=== PATIENT | female | born 1950 | race Caucasian/White ===

== ENCOUNTER 2021-03-14 09:41 | Emergency (ER) | payer OTHER, BC ==
[2021-03-14] MEDS ORDERED: FLUORESCEIN SODIUM 1 MG/WRAP ONE (10:54)
[2021-03-14] MEDS ORDERED: TETRACAINE HCL 0.5% 4ML OPTH ONE (10:54)
--- NOTE | 2021-03-14 10:54 | ER ---
Nurse's Notes [facility] Name: Angelique Ayala Age: 71 yrs Sex: Female : 1950 Arrival Date: 03/14/2021 Time: 09:44 Bed Treatment Private MD: Diagnosis: Injury of conjunctiva and corneal abrasion without foreign body, right eye Presentation: 03/14 10:08 Chief complaint: Patient states: R eye redness swelling, irritation since yesterday ll1 afternoon. Possible FB. Coronavirus screen: Vaccine status: Patient reports receiving the 2nd dose of the covid vaccine. Client denies travel out of the [place] in the last 14 days. At this time, the client does not indicate any symptoms associated with coronavirus-19. Ebola Screen: Patient denies travel to an Ebola-affected area in the 21 days before illness onset. Initial Sepsis Screen: Does the patient meet any 2 criteria? No. Patient's initial sepsis screen is negative. Does the patient have a suspected source of infection? Yes: Other: eye. Risk Assessment: Do you want to hurt yourself or someone else? Patient reports no desire to harm self or others. Onset of symptoms was March 13, 2021. 10:08 Method Of Arrival: Ambulatory ll1 10:08 Acuity: CHAZ 4 ll1 Historical: - Allergies: 10:10 Versed; ll1 10:10 Naproxen; ll1 - PMHx: 10:10 Hypertensive disorder; Diabetes mellitus; GERD; ll1 - Immunization history:: Client reports receiving the 2nd dose of the Covid vaccine, Flu vaccine is up to date. - Social history:: Smoking status: Patient denies any tobacco usage or history of. Screenin:22 Abuse screen: Denies threats or abuse. Denies injuries from another. Nutritional ss screening: No deficits noted. Tuberculosis screening: Never had TB. Fall Risk None identified. Assessment: 10:40 General: Appears in no apparent distress. comfortable, Behavior is calm, cooperative. vg1 Pain: Complains of pain in right eye Pain at worst was 8 out of 10 on a pain scale. Pain began 1 day ago. Neuro: Level of Consciousness is awake, alert, obeys commands, Oriented to person, place, time, situation. Cardiovascular: Patient's skin is warm and dry. Respiratory: Airway is patent Respiratory effort is even, unlabored. GI: No signs and/or symptoms were reported involving the gastrointestinal system. : No signs and/or symptoms were reported regarding the genitourinary system. EENT: Eyes are tearing on outer aspect of conjuctiva of right eye, iris of right eye and inner aspect of conjuctiva of right eye. Derm: Skin is intact, is healthy with good turgor. Musculoskeletal: Circulation, motion, and sensation intact. 12:22 Reassessment: Patient appears in no apparent distress at this time. Patient and/or ss family updated on plan of care and expected duration. Pain level reassessed. Patient is alert, oriented x 3, equal unlabored respirations, skin warm/dry/pink. Vital Signs: 10:08 BP 168 / 89; Pulse 72; Resp 18; Temp 98.1; Pulse Ox 97% ; Weight 68.04 kg; Height 5 ft. ll1 4 in. (162.56 cm); Pain 8/10; 10:08 Body Mass Index 25.75 (68.04 kg, 162.56 cm) ll1 ED Course: 09:44 Patient arrived in ED. ds1 10:08 Arm band placed on. ll1 10:10 Triage completed. ll1 10:19 Jerica Flood FNP-C is [facility]. kb 10:20 Yousuf Jansen MD is Attending Physician. kb 10:40 Mary Jameson, PAVITHRA is Primary Nurse. vg1 12:22 Patient has correct armband on for positive identification. Bed in low position. Call light in reach. 12:22 Assist provider with eye exam of right eye. using fluorescein stain, Performed by Yousuf Jansen MD Patient tolerated well. Patient did not have IV access during this emergency room visit. Administered Medications: 11:45 Drug: Tetracaine Drops 0.5 % 1 drops Route: Ophthalmic; Site: right eye; Outcome: 10:53 Discharge ordered by . kb 12:22 Discharged to home ambulatory. ss 12:22 Condition: good 12:22 Discharge instructions given to patient, Instructed on discharge instructions, follow up and referral plans. Demonstrated understanding of instructions, follow-up care, Prescriptions given X 1. 12:23 Patient left the ED. Signatures: Jerica Flood FNP-C FNP-Ckb Sanford, Demi ds1 Page Garcia RN RN Mary Meza RN RN vg1 Randall Boyce, RN RN ll1
--- NOTE | 2021-03-14 10:54 | EDPHYS ---
Physician Documentation [facility] Name: Angelique Ayala Age: 71 yrs Sex: Female : 1950 Arrival Date: 03/14/2021 Time: 09:44 Bed Treatment Private MD: ED Physician Yousuf Jansen HPI: 03/14 11:18 This 71 yrs old Female presents to ER via Ambulatory with complaints of kb Foreign Body In Eye. 11:18 The patient is experiencing foreign body sensation, The patient sustained None. to the kb right eye, caused by debris. Onset: The symptoms/episode began/occurred yesterday. Duration: the symptoms are continuous. Aggravated by nothing. Alleviated by nothing. Associated signs and symptoms: Pertinent positives: None. Patient does not utilize any form of vision correction. Severity of symptoms: At their worst the symptoms were moderate in the emergency department the symptoms are unchanged. The patient has not experienced similar symptoms in the past. The patient has not recently seen a physician. Pt reports she was looking up at a bird yesterday evening and it dropped something into right eye. Historical: - Allergies: 10:10 Versed; ll1 10:10 Naproxen; ll1 - PMHx: 10:10 Hypertensive disorder; Diabetes mellitus; GERD; ll1 - Immunization history:: Client reports receiving the 2nd dose of the Covid vaccine, Flu vaccine is up to date. - Social history:: Smoking status: Patient denies any tobacco usage or history of. ROS: 11:16 Constitutional: Negative for fever, chills, and weight loss. kb 11:16 Eyes: Positive for foreign body sensation, pain, redness. 11:16 All other systems are negative. Exam: 11:16 Constitutional: This is a well developed, well nourished patient who is awake, alert, kb and in no acute distress. Head/Face: Normocephalic, atraumatic. ENT: Moist Mucous membranes Respiratory: Respirations even and unlabored. No increased work of breathing, no retractions or nasal flaring. Skin: Warm, dry with normal turgor. Normal color. MS/ Extremity: Pulses equal, no cyanosis. Neurovascular intact. Full, normal range of motion. Neuro: Awake and alert, GCS 15, oriented to person, place, time, and situation. Moves all extremities. Normal gait. Psych: Awake, alert, with orientation to person, place and time. Behavior, mood, and affect are within normal limits. 11:16 Eyes: Periorbital structures: appear normal, Pupils: equal, round, and reactive to light and accomodation, Extraocular movements: intact throughout, Conjunctiva: Corneas: abrasion, that is small, on the right, at 9 o'clock, foreign body, is not appreciated, a fluorescein strip employed to appreciate the findings. Vital Signs: 10:08 BP 168 / 89; Pulse 72; Resp 18; Temp 98.1; Pulse Ox 97% ; Weight 68.04 kg; Height 5 ft. ll1 4 in. (162.56 cm); Pain 8/10; 10:08 Body Mass Index 25.75 (68.04 kg, 162.56 cm) ll1 MDM: 10:25 Patient medically screened. kb 11:18 Data reviewed: vital signs, nurses notes. Data interpreted: Pulse oximetry: on room air kb is 97 %. Interpretation: normal. Counseling: I had a detailed discussion with the patient and/or guardian regarding: the historical points, exam findings, and any diagnostic results supporting the discharge/admit diagnosis, the need for outpatient follow up, an opthalmologist, to return to the emergency department if symptoms worsen or persist or if there are any questions or concerns that arise at home. 03/14 10:20 Order name: Eye Tray; Complete Time: 10:29 kb 03/14 10:20 Order name: Fluoresene Opth strip; Complete Time: 10:29 kb 03/14 10:20 Order name: Visual Acuity; Complete Time: 12:22 kb Administered Medications: 11:45 Drug: Tetracaine Drops 0.5 % 1 drops Route: Ophthalmic; Site: right eye; Disposition: 15:13 Co-signature as Attending Physician, Yousuf Jansen MD I agree with the assessment and lavonne plan of care. Disposition Summary: 03/14/21 10:53 Discharge Ordered Location: Home Condition: Stable kb Diagnosis - Injury of conjunctiva and corneal abrasion without foreign body, right eye kb Followup: kb - With: Emergency Department - When: As needed - Reason: Worsening of condition Followup: kb - With: Private Physician - When: 2 - 3 days - Reason: Recheck today's complaints, Continuance of care, Re-evaluation by your physician Discharge Instructions: - Discharge Summary Sheet kb - Corneal Abrasion, [id number] kb Forms: - Medication Reconciliation Form kb - Thank You Letter kb - Antibiotic Education kb - Prescription Opioid Use kb Prescriptions: - Erythromycin 5 mg/gram (0.5 %) Ophthalmic Ointment - apply 1 ribbon by OPHTHALMIC route every 8 hours for 7 days; 1 tube; Refills: kb 0, Product Selection Permitted Signatures: Jerica Flood, HANNA[employer] OPERATOR-Yousuf Mae MD MD cha Smirch, Shelby, RN RN ss Randall Boyce RN RN ll1
[2021-03-14 12:32] VITALS: BP 168/89; TEMP 98.1; O2SAT 97
== END 2021-03-14 12:23 | disposition home or self-care (01) ==
LOC: ER 09:41
DX: S05.01XA Injury of conjunctiva and corneal abrasion without foreign body, right eye, initial encounter (principal); I10 Essential (primary) hypertension; Z88.6 Allergy status to analgesic agent; Z88.8 Allergy status to other drugs, medicaments and biological substances
CPT/HCPCS: 99283

== ENCOUNTER 2021-06-18 18:58 | Inpatient (IN) | payer OTHER, BC ==
[2021-06-18] MEDS ORDERED: FENTANYL CITR 100 MCG/2 ML ONE ×2 (19:29→21:32)
[2021-06-18 20:05] LABS: Absolute Lymphocytes (CBC) 0.9 K/uL (0.7-4.9); Basophils % 0.2 % (0-1.3); Lymphocytes % 13.5 % (15.3-44.8); MPV 9.6 fL (7.6-11.3)
[2021-06-18 20:08] LABS: Protime INR 0.91
--- NOTE | 2021-06-18 20:22 | RAD REPORT ---
EXAM DESCRIPTION: RAD - Hip Left 2 View - 06/18/2021 8:10 pm CLINICAL HISTORY: PAIN COMPARISON: No comparisons FINDINGS: Left intertrochanteric hip fracture which is only mildly displaced. No dislocation. IMPRESSION: Left intertrochanteric hip fracture.
--- NOTE | 2021-06-18 20:22 | RAD REPORT ---
EXAM DESCRIPTION: RAD - Pelvis - 06/18/2021 8:10 pm CLINICAL HISTORY: fall COMPARISON: Hip Left 2 View dated 06/18/2021; Chest Single View dated 06/18/2021 FINDINGS: Left intertrochanteric hip fracture. No pelvic fracture seen. Mild bilateral acetabular de generative changes. IMPRESSION: Left intertrochanteric hip fracture. No dislocation or pelvic fracture identified.
[2021-06-18 20:24] LABS: ALT/SGPT 25 U/L (12-78); AST/SGOT 25 U/L (15-37); Albumin 3.4 g/dL (3.4-5.0); Alkaline Phosphatase 98 U/L (45-117); BUN Blood Urea Nitrogen 9 mg/dL (7-18); Bicarbonate 26 mmol/L (21-32); Bilirubin Direct 0.1 mg/dL (0-0.2); Bilirubin Total 0.2 mg/dL (0.2-1.0); Glucose Level 130 mg/dL (74-106); Magnesium 1.6 mg/dL (1.8-2.4); NT PRO-BNP 214 pg/mL (<125); Potassium 4.1 mmol/L (3.5-5.1); Protein, Total 6.7 g/dL (6.4-8.2); Sodium Level 140 mmol/L (136-145); Troponin (Emerg Dept Use Only) < 0.02 ng/mL (0.0-0.045)
--- NOTE | 2021-06-18 20:24 | RAD REPORT ---
EXAM DESCRIPTION: RAD - Chest Single View - 06/18/2021 8:10 pm CLINICAL HISTORY: fall COMPARISON: Chest Pa And Lat (2 Views) dated 11/13/2019; Chest Pa And Lat (2 Views) dated 06/10/2019; C hest Pa And Lat (2 Views) dated 03/16/2017; CHEST PA AND LAT 2 VIEW dated 11/12/2012 FINDINGS: Lines: None. Lungs: Increased interstitial prominence. No consolidation. Pleural: No significant pleural effusions or pneumothorax. Cardiac: Cardiomegaly. Bones: No acute fractures. Other: Hiatal hernia. IMPRESSION: Increased prominence of the pulmonary interstitium which may reflect vascular congestion . No daniel pulmonary edema. No consolidative airspace disease.
--- NOTE | 2021-06-18 20:30 | ER ---
Nurse's Notes [facility] Name: Angelique Ayala Age: 71 yrs Sex: Female : 1950 Arrival Date: 06/18/2021 Time: 19:21 Bed 16 Private MD: Diagnosis: Nondisplaced intertrochanteric fracture of left femur, initial encounter for closed fracture;Fall on same level from slipping, tripping and stumbling without subsequent striking against object Presentation: 06/18 07:30 Chief complaint: Patient states: pt states she was standing on 1 leg to sit on couch w mr2 1 leg under her when she lost her balance and fell over onto her L hip. denies loc denies hitting head denies blood thinners external rotation of left foot no active hemorrhage. Care prior to arrival: Medication(s) given: 50 mcg fentanyl. Mechanism of Injury: Fall from standing position. Trauma event details: Injury occurred in the [facility], Injury occurred: at home. Injury occurred: June 18, 2021 Injury occurred at: 18:00. 07:30 Acuity: CHAZ 2 mr2 07:30 Method Of Arrival: EMS: [facility] mr2 20:24 Coronavirus screen: Vaccine status: Patient reports receiving the 2nd dose of the covid mr2 vaccine. Ebola Screen: No symptoms or risks identified at this time. Initial Sepsis Screen: Does the patient meet any 2 criteria? No. Patient's initial sepsis screen is negative. Does the patient have a suspected source of infection? No. Patient's initial sepsis screen is negative. Risk Assessment: Do you want to hurt yourself or someone else? Patient reports no desire to harm self or others. Onset of symptoms was June 18, 2021 at 18:00. Triage Assessment: 20:00 General: Appears in no apparent distress. uncomfortable, Behavior is calm, cooperative. sv1 Pain: Complains of pain in left hip. Trauma Activation: Physician: ED Physician; Name: mamadou; Notified At: ; Arrived At: Physician: General Surgeon; Name: ; Notified At: ; Arrived At: Physician: Radiology; Name: ; Notified At: ; Arrived At: Physician: Respiratory; Name: ; Notified At: ; Arrived At: Physician: Lab; Name: ; Notified At: ; Arrived At: Historical: - Allergies: 20:24 Naproxen; mr2 20:24 Versed; mr2 - PMHx: 20:24 diabetes mellitus; GERD; Hypertensive disorder; mr2 - Immunization history: Last tetanus immunization: < 10 years ago. - Social history:: Smoking status: Patient denies any tobacco usage or history of. Screenin:30 Abuse screen: Denies threats or abuse. Denies injuries from another. Tuberculosis mr2 screening: No symptoms or risk factors identified. 20:25 Nutritional screening: No deficits noted. Fall Risk Fall in past 12 months (25 points). mr2 IV access (20 points). Gait- Mental Status-. Primary Survey: 07:30 NO uncontrolled hemorrhage observed. A: Airway: patent. Breathing/Chest: Respiratory mr2 pattern: regular. Circulation: Cardiac rhythm: sinus rhythm Pulses: palpable right radial artery, right dorsalis pedis artery, left radial artery and left dorsalis pedis artery. Skin color: pink, Skin temperature: warm. Disability Alert. Exposure/Environment: All clothing and personal items were removed. Forensic evidence collection is not deemed to be indicated at this time. Items placed in patient belonging bag. There is no evidence of uncontrolled external bleeding. 20:23 Reassessment Airway Airway Patent Oxygen Breathing/Chest Circulation Heart rhythm Sinus mr2 rhythm Temperature Warm Disability Alert. Secondary Survey: 19:45 HEENT: No deficits noted. Gastrointestinal: No deficits noted. : No deficits noted. mr2 Musculoskeletal: L foot external rotation. Assessment: 07:30 General: Appears uncomfortable, Behavior is calm, cooperative. Pain: Complains of pain mr2 in left hip Pain does not radiate. Pain currently is 8 out of 10 on a pain scale. Vital Signs: 19:30 BP 106 / 64; Pulse 80; Resp 16; Temp 98.4; Pulse Ox 98% on R/A; Weight 63.5 kg; Height mr2 5 ft. 2 in. (157.48 cm); Pain 8/10; 23:31 BP 115 / 70; Pulse 78; Resp 16; Temp 98.3; Pulse Ox 97% on R/A; mr2 06/19 01:10 BP 120 / 75; Pulse 75; Resp 17; Temp 98.3; Pulse Ox 97% on R/A; mr2 06/18 19:30 Body Mass Index 25.61 (63.50 kg, 157.48 cm) mr2 Patrick Coma Score: 06/18 19:30 Eye Response: spontaneous(4). Verbal Response: oriented(5). Motor Response: obeys mr2 commands(6). Total: 15. Trauma Score (Adult): 19:30 Eye Response: spontaneous(1); Verbal Response: oriented(1); Motor Response: obeys mr2 commands(2); Systolic BP: > 89 mm Hg(4); Respiratory Rate: 10 to 29 per min(4); Power Score: 15; Trauma Score: 12 ED Course: 19:21 Patient arrived in ED. ja2 19:22 Yousuf Louie PA is PHCP. cp 19:22 Yousuf Jansen MD is Attending Physician. cp 19:30 Patient maintains SpO2 saturation greater than 95% on room air. mr2 19:30 Thermoregulation: warm blanket given to patient. mr2 19:30 Patient has correct armband on for positive identification. Side rails up X2. Adult w/ mr2 patient. 19:51 Initial lab(s) drawn, by ne, sent to lab. Inserted saline lock: 22 gauge in left lt3 antecubital area, using aseptic technique. 19:53 Anmol Gardiner, RN is Primary Nurse. mr2 20:10 XRAY Pelvis In Process Unspecified. EDMS 20:10 XRAY Hip LEFT 2 view In Process Unspecified. EDMS 20:10 XRAY Chest (1 view) In Process Unspecified. EDMS 20:17 Triage completed. mr2 20:22 No provider procedures requiring assistance completed. mr2 20:26 EKG done, by ED staff, reviewed by Yousuf PERKINS. lt3 20:28 Manolo Miller MD is Hospitalizing Provider. 06/19 01:51 Patient admitted, IV remains in place. mr2 01:52 Patient notified of wait time. mr2 Administered Medications: 06/18 19:30 CANCELLED (Physician Discretion): fentaNYL (PF) 25 mcg IVP once; RASS on ADMIN: cp Combtv4, Very Agttd3, Agttd2, Rstlss1, AlertClm0, Drwsy-1, Lt Sdtn-2, Mod Sdtn-3, Dp Sdtn-4, UnArsble-5 19:59 Drug: fentaNYL (PF) 25 mcg Route: IVP; Site: left antecubital; mr2 20:26 Drug: NS 0.9% 500 ml Route: IV; Rate: bolus; Site: left antecubital; mr2 20:33 Drug: Magnesium Sulfate 1 grams Route: IVPB; Infused Over: 1 hrs; Site: left mr2 antecubital; 21:15 Drug: fentaNYL (PF) 25 mcg Route: IVP; Site: left antecubital; mr2 06/19 01:15 Drug: fentaNYL (PF) 25 mcg Route: IVP; Site: left antecubital; mr2 Intake: 01:52 PO: 200ml; IV: 500ml; Total: 700ml. mr2 Output: 01:52 Urine: 200ml; Total: 200ml. mr2 Outcome: 06/18 20:29 Decision to Hospitalize by Provider. blanca 06/19 01:51 Admitted to Med/surg mr2 Condition: stable Instructed on the need for admit. 01:52 Patient's length of stay was not longer than 2 hours. mr2 03:05 Patient left the ED. sv1 Signatures: Dispatcher [employer] EDMS Yousuf Louie PA PA cp Alexander, Jessica ja2 Reynard, Mike, RN RN mr2 Mckenna Cooley 3 Angel Yates RN RN sv1
--- NOTE | 2021-06-18 20:30 | EDPHYS ---
Physician Documentation [facility] Name: Angelique Ayala Age: 71 yrs Sex: Female : 1950 Arrival Date: 06/18/2021 Time: 19:21 Bed 16 Private MD: ED Physician Yousuf Jansen HPI: 06/18 19:40 This 71 yrs old Female presents to ER via Unassigned with complaints of Fall Injury. cp 19:40 Details of fall: The patient fell from an upright position, while walking. Onset: The cp symptoms/episode began/occurred just prior to arrival. Associated injuries: The patient sustained left hip, painful injury. Historical: - Allergies: 20:24 Naproxen; mr2 20:24 Versed; mr2 - PMHx: 20:24 diabetes mellitus; GERD; Hypertensive disorder; mr2 - Immunization history: Last tetanus immunization: < 10 years ago. - Social history:: Smoking status: Patient denies any tobacco usage or history of. ROS: 19:42 Constitutional: Negative for body aches, chills, fever, poor PO intake. cp 19:42 Cardiovascular: Negative for chest pain, edema, palpitations. 19:42 Respiratory: Negative for cough, shortness of breath, wheezing. 19:42 MS/extremity: Positive for injury or acute deformity, pain, paresthesias, of the left hip. 19:42 All other systems are negative. cp Exam: 19:45 Constitutional: The patient appears in no acute distress, alert, awake, cp non-diaphoretic, non-toxic, well developed, well nourished, uncomfortable. 19:45 Head/Face: Normocephalic, atraumatic. cp 19:45 Eyes: Periorbital structures: appear normal, Conjunctiva: normal, no exudate, no cp injection, Sclera: no appreciated abnormality, Lids and lashes: appear normal, bilaterally. 19:45 ENT: External ear(s): are unremarkable, Nose: is normal, Mouth: Lips: moist, Oral cp mucosa: moist, Posterior pharynx: Airway: no evidence of obstruction, patent. 19:45 Neck: ROM/movement: is normal, is supple, without pain, no range of motions limitations. 19:45 Chest/axilla: Inspection: normal, Palpation: is normal, no crepitus, no tenderness. 19:45 Cardiovascular: Rate: normal, Rhythm: regular, Edema: is not appreciated, JVD: is not appreciated. 19:45 Respiratory: the patient does not display signs of respiratory distress, Respirations: normal, no use of accessory muscles, no retractions, labored breathing, is not present, Breath sounds: are clear throughout, no decreased breath sounds, no stridor, no wheezing. 19:45 Abdomen/GI: Inspection: abdomen appears normal, Bowel sounds: active, all quadrants, Palpation: abdomen is soft and non-tender, in all quadrants. 19:45 Back: pain, is absent, vertebral tenderness, is not appreciated. 19:45 Musculoskeletal/extremity: Extremities: grossly normal except: noted in the left hip: pain, tenderness, ROM: limited passive range of motion due to pain, in the left hip, Pulses: noted to be 2+ in the left dorsalis pedis artery, Perfusion: the extremity is normally perfused throughout, the left hip Severe pain noted. 19:45 Skin: cellulitis, is not appreciated, no rash present. 19:45 Neuro: Orientation: to person, place \T\ time. Mentation: is normal, Motor: moves all fours, strength is normal, Sensation: is normal. 20:25 ECG was reviewed by the Attending Physician. cp Vital Signs: 19:30 BP 106 / 64; Pulse 80; Resp 16; Temp 98.4; Pulse Ox 98% on R/A; Weight 63.5 kg; Height mr2 5 ft. 2 in. (157.48 cm); Pain 8/10; 23:31 BP 115 / 70; Pulse 78; Resp 16; Temp 98.3; Pulse Ox 97% on R/A; mr2 06/19 01:10 BP 120 / 75; Pulse 75; Resp 17; Temp 98.3; Pulse Ox 97% on R/A; mr2 06/18 19:30 Body Mass Index 25.61 (63.50 kg, 157.48 cm) mr2 [place] Coma Score: 06/18 19:30 Eye Response: spontaneous(4). Verbal Response: oriented(5). Motor Response: obeys mr2 commands(6). Total: 15. Trauma Score (Adult): 19:30 Eye Response: spontaneous(1); Verbal Response: oriented(1); Motor Response: obeys mr2 commands(2); Systolic BP: > 89 mm Hg(4); Respiratory Rate: 10 to 29 per min(4); Patrick Score: 15; Trauma Score: 12 MDM: 19:25 Patient medically screened. [place] 20:00 Differential diagnosis: closed head injury, contusion, fracture, multiple trauma. 20:26 Physician consultation: Angel David MD was called at 20:25, was contacted at 20:25, regarding consult, patient's condition, and will see patient in inpatient room, tomorrow, would like admission per Dr. Manolo Miller MD. 20:30 Data reviewed: vital signs, nurses notes, lab test result(s), EKG, radiologic studies, cp plain films. 20:30 Test interpretation: by ED physician or midlevel provider: ECG, plain radiologic cp studies. 20:46 Physician consultation: Manolo Miller MD was contacted at 20:46, regarding patient's cp condition, and will see patient in inpatient room, tomorrow. 06/18 19:30 Order name: Basic Metabolic Panel 06/18 19:30 Order name: CBC with Diff; Complete Time: 20:25 06/18 20:25 Interpretation: Normal except: NISH% 76.2; LYM% 13.5. 06/18 19:30 Order name: LFT's; Complete Time: 20:25 06/18 19:30 Order name: Magnesium; Complete Time: 20:25 06/18 20:26 Interpretation: Abnormal: MG 1.6. 06/18 19:30 Order name: NT PRO-BNP; Complete Time: 20:25 06/18 19:30 Order name: PT-INR; Complete Time: 20:25 06/18 19:30 Order name: Troponin (emerg Dept Use Only); Complete Time: 20:25 06/18 19:30 Order name: Ptt, Activated; Complete Time: 20:25 06/18 19:30 Order name: Basic Metabolic Panel; Complete Time: 20:25 [facility] 06/18 20:33 Order name: Urine Microscopic Only 06/18 20:33 Order name: Urine Microscopic Only [facility] 06/18 20:58 Order name: Basic Metabolic Panel [facility] 06/18 20:58 Order name: Basic Metabolic Panel [facility] 06/18 19:26 Order name: XRAY Pelvis; Complete Time: 20:25 06/18 20:26 Interpretation: Report reviewed. 06/18 19:26 Order name: XRAY Hip LEFT 2 view; Complete Time: 20:23 06/18 19:26 Order name: IV; Complete Time: 19:52 06/18 19:26 Order name: XRAY Chest (1 view); Complete Time: 20:25 06/18 19:30 Order name: EKG; Complete Time: 19:31 06/18 20:58 Order name: CONS Physician Consult [facility] 06/18 23:29 Order name: SARS-COV-2 RT PCR; Complete Time: 01:01 [facility] 06/19 00:05 Order name: NPO [facility] 06/19 00:05 Order name: CBC with Automated Diff [facility] 06/19 02:39 Order name: Glucose, Ancillary Testing [facility] 06/18 19:30 Order name: Cardiac monitoring; Complete Time: 20:27 06/18 19:30 Order name: EKG - Nurse/Tech; Complete Time: 20:27 06/18 19:30 Order name: Labs collected and sent; Complete Time: 20:02 06/18 19:30 Order name: O2 Per Protocol 06/18 19:30 Order name: O2 Sat Monitoring; Complete Time: 20:27 06/18 20:33 Order name: [place] 06/18 20:33 Order name: Urine Dipstick-Ancillary (obtain specimen) cp EC:25 Rate is 77 beats/min. Rhythm is regular. PA interval is normal. QRS interval is normal. cp QT interval is normal. Interpreted by me. Reviewed by me. Administered Medications: 19:30 CANCELLED (Physician Discretion): fentaNYL (PF) 25 mcg IVP once; RASS on ADMIN: cp Combtv4, Very Agttd3, Agttd2, Rstlss1, AlertClm0, Drwsy-1, Lt Sdtn-2, Mod Sdtn-3, Dp Sdtn-4, UnArsble-5 19:59 Drug: fentaNYL (PF) 25 mcg Route: IVP; Site: left antecubital; mr2 20:26 Drug: NS 0.9% 500 ml Route: IV; Rate: bolus; Site: left antecubital; mr2 20:33 Drug: Magnesium Sulfate 1 grams Route: IVPB; Infused Over: 1 hrs; Site: left mr2 antecubital; 21:15 Drug: fentaNYL (PF) 25 mcg Route: IVP; Site: left antecubital; mr2 06/19 01:15 Drug: fentaNYL (PF) 25 mcg Route: IVP; Site: left antecubital; mr2 Disposition: 06/18 21:00 Chart complete. cp Disposition Summary: 06/18/21 20:29 Hospitalization Ordered Hospitalization Status: Inpatient Admission cp Provider: Manolo Miller cp Location: Telemetry/MedSurg (Inpatient) cp Condition: Stable cp Problem: new cp Symptoms: have improved cp Bed/Room Type: Standard cp Room Assignment: 209(06/19/21 01:09) cg Diagnosis - Nondisplaced intertrochanteric fracture of left femur, initial encounter for closed cp fracture - Fall on same level from slipping, tripping and stumbling without subsequent cp striking against object Forms: - Medication Reconciliation Form cp - SBAR form cp Addendum: 06/20/2021 11:13 Co-signature as Attending Physician, Yousuf Jansen MD I agree with the assessment and c wright plan of care. Signatures: Dispatcher [employer] MEGAVA Yousuf Jansen MD MD cha Attema, Lee, CHIEF CONTROLLER TOWER-C CHIEF CONTROLLER TOWER-Cla1 Yousuf Louie PA PA cp Rebecca Jameson RN RN cg Anmol Gardiner RN RN mr2 Corrections: (The following items were deleted from the chart) 06/18 19:30 19:26 fentaNYL (PF) 25 mcg IVP once; RASS on ADMIN: Combtv4, Very Agttd3, Agttd2, cp Rstlss1, AlertClm0, Drwsy-1, Lt Sdtn-2, Mod Sdtn-3, Dp Sdtn-4, UnArsble-5 ordered. cp 20:25 20:25 Normal except. cp cp 23:29 22:58 CORONAVIRUS+MR.LAB.BRZ ordered. [facility] 06/19 01:09 06/18 20:29 cp cg
[2021-06-18] MEDS ORDERED: GLUCAGON 1 MG/VIAL IM PRN (20:53)
[2021-06-18] MEDS ORDERED: ONDANSETRON 4 MG/2 ML VIAL IV PRN (20:53)
[2021-06-18] MEDS ORDERED: D50W 25 GM/50 ML SYRINGE IV PRN (20:53)
[2021-06-18] MEDS ORDERED: ACETAMINOPHEN 500 MG TAB PO PRN (20:53)
[2021-06-18] MEDS: INSULIN -REGULAR HUMAN 50 UNIT/0.5 ML ML SQ SCH (21:00)
[2021-06-18] MEDS ORDERED: NA CHLORIDE 0.9% 500 ML ONE (21:01)
[2021-06-19] MEDS ORDERED: FENTANYL CITR 100 MCG/2 ML ONE ×2 (01:20→14:01)
[2021-06-19 03:27] VITALS: BMI 25.6
[2021-06-19] MEDS: MORPHINE 2 MG/ML SYR IV PRN ×2 (03:59→09:30)
[2021-06-19 05:31] LABS: Absolute Lymphocytes (CBC) 0.4 K/uL (0.7-4.9); Basophils % 0.2 % (0-1.3); Hematocrit 36.2 % (36.0-45.0); Lymphocytes % 12.3 % (15.3-44.8); MPV 9.5 fL (7.6-11.3); RBC Red Blood Cell Count 4.11 M/uL (3.86-4.86)
[2021-06-19 05:52] LABS: BUN Blood Urea Nitrogen 13 mg/dL (7-18); Bicarbonate 29 mmol/L (21-32); Glucose Level 117 mg/dL (74-106); Potassium 4.3 mmol/L (3.5-5.1); Sodium Level 140 mmol/L (136-145)
--- NOTE | 2021-06-19 07:15 | CON ---
Date of Consultation: 06/19/2021 History Of Present Illness: I have seen this patient in the past; however, not for this problem. Sh alexa unfortunately injured her left lower extremity and she was seen and examined in the emergency depar tment and ruled out for other injuries with the exception of pain in the left hip and x-ray of the le ft hip reveals slightly nondisplaced two-part intertrochanteric fracture on the left. Physical Examination: She is in Zavala's traction, but all long bones and joints are palpated without pain or crepitation wit h the exception of her left hip. Laboratory Data: X-rays are reviewed, which revealed a slightly displaced two-part fracture of the i ntertrochanteric region. Assessment: This is a 71-year-old female now with a left intertrochanteric fracture. Plan: Plan is to move forward probably around noon with a closed reduction and intramedullary navarro fi xation. The risks, benefits, and alternatives of this have been discussed with her including methods and other information. She says she understands things as presented and wished to proceed. NORRIS Voice ID: [id number] Report ID: [id number]
[2021-06-19] MEDS: INSULIN -REGULAR HUMAN 50 UNIT/0.5 ML ML SQ SCH ×4 (07:30→21:43)
[2021-06-19] MEDS: D5 0.9 NS 1,000 ML IV SCH ×2 (08:45→21:50)
[2021-06-19] MEDS ORDERED: TRANEXAMIC ACID 1,000 MG in NA CHLORIDE 0.9% 50 ML IV ONE (11:00)
[2021-06-19] MEDS ORDERED: NA CHLORIDE 0.9% 1,000 ML ONE (11:31)
--- NOTE | 2021-06-19 12:21 | HP ---
Date of Admission: 06/19/2021 Chief Complaint: Hip pain. History Of Present Illness: This is a 71-year-old female patient who lives at home was trying to sit down in the chair with 1 leg folded and as she was doing it, she lost her balance and fell forward o n her left hip. She did not have any head injury. She was not able to get up and she managed to get to her phone and call her daughter, who arrived at her house and then subsequently called ambulance and the patient was brought into the emergency room. After she was evaluated, she was admitted to [facility] with left hip fracture. Dr. David from Orthopedic Surgery has evaluated her and he is planning to do surgery today at [facility]. The patient was kept n.p.o. after midnight for this surge ry. She denies any recent febrile episodes. No cough, cold, congestion, or fever. No abdominal juni n, nausea, or vomiting. No chest pain or shortness of breath. Allergies: TO MIDAZOLAM CAUSING BRADYCARDIA, NAPROXEN CAUSING HIVES, STATIN CAUSING MUSCLE WEAKNESS, AND ZETIA ALSO CAUSING MUSCLE WEAKNESS. Medications: Amlodipine 5 mg daily in the morning, duloxetine 60 mg p.o. daily, famotidine 40 mg p.o . daily at bedtime, gabapentin 300 mg 3 times a day, losartan 50 mg p.o. 2 times a day, metformin 100 0 mg p.o. 2 times a day with meal, omeprazole 40 mg p.o. daily 30 minutes before breakfast, oxybutyni n 10 mg p.o. daily, ropinirole 1 mg p.o. daily at bedtime, sertraline 100 mg p.o. daily at bedtime, a nd vitamin B12 500 mcg p.o. daily. Review of Systems: Musculoskeletal: Left hip pain. All other systems reviewed and negative. Past Medical History: Significant for peripheral neuropathy, type 2 diabetes mellitus, hypertension, mixed hyperlipidemia, gastroesophageal reflux disease, diverticulosis, depression, and osteopenia. Past Surgical History: Significant for tonsillectomy, cholecystectomy, hysterectomy, and surgery for right wrist fracture. Family History: Father , had diabetes and hypertension. Mother , had congestive heart failu re. Social History: Prior history of smoking, not at present time. Uses alcohol as a glass of wine dora Entrecard. Immunization History: The patient had her first dose of COVID-19 vaccine on October 14, 2020, second do se on November 11, 2020 and she reports that she had her booster dose of COVID-19 vaccine as well as flu [facility] for this year. Physical Examination: Vital Signs: Temperature 98, pulse 62, respiratory rate 16, blood pressure 112/52, and oxygen satura tion 94% on room air. Height 5 feet 2 inches, weight 140 pounds. General: Awake, alert, oriented, not in distress. HEENT: Head atraumatic, normocephalic. Conjunctivae nonerythematous. Sclerae white. Mouth, no thr ush or edema noted. Ears/Nose, no mass, lesion, discharge noted. Neck: Supple. No JVD, lymph nodes, bruit, thyromegaly noted. Lungs: Bilateral good equal air entry. Clear to auscultation. No rhonchi. No rales. Heart: Normal heart sounds, no murmur or gallop. Abdomen: Soft, bowel sounds normal. No guarding, rigidity, tenderness, mass, hepatosplenomegaly, dis tention, or bruit noted. Extremities: Left foot is externally rotated. Neurovascular status of both feet is normal. Skin: No rash, ulcer, cellulitis. Lymphatics: No lymph node enlargement in neck, supraclavicular, infraclavicular region. Neuro: No focal neurological deficit. Chest: Unremarkable. External Genitalia: Deferred. Rectal: Deferred. Laboratory Data: Yesterday; white count 7, hemoglobin 12.2, and platelets 200. Today; white count 3 .5, hemoglobin 11.8, and platelets 152. INR 0.9. Yesterday; sodium 140, potassium 4.1, chloride 102 , bicarb 26, BUN 9, creatinine 0.71, glucose 130, and magnesium 1.6. Liver function tests unremarkab le. Troponin less than 0.02. ProBNP 214. Today; sodium 140, potassium 4.3, chloride 105, bicarb 29 , BUN 13, creatinine 0.55, and glucose 117. COVID-19 test negative. Left hip x-ray shows left inter trochanteric hip fracture with mild displacement, no dislocation. Chest x-ray shows increased promin ence of pulmonary interstitial marking. Impression: 1.Left hip intertrochanteric fracture. 2.Acute blood loss anemia. 3.Thrombocytopenia. 4.Hypertension. 5.Mixed hyperlipidemia. 6.Type 2 diabetes mellitus. 7.Gastroesophageal reflux disease. 8.Diverticulosis. 9.Depression. 10.Osteopenia. Plan: Admit the patient to hospital for further evaluation and management of this problem. The nazanin ent is appropriate for inpatient and is expected to spend 2 midnights in hospital. We will go ahead and keep her n.p.o. IV fluid D5 normal saline at 75 cc was started. Continue pain medication per ord er. Her EKG has not shown any acute changes. The patient is at acceptable risk from planned surgery and details were discussed with orthopedic surgeon, Dr. David who is planning to do surgery toda y. After her surgery, appropriate DVT prophylaxis will be started. We will consult Physical Therapy , consult Rehab and home medications will be continued per order. Diabetes will be managed with slid ing scale insulin. We will monitor the patient's hemoglobin and platelet count. No need for any fur ther intervention at this point. Plan of treatment discussed with the patient and she was advised to move her feet as instructed while lying in the bed to reduce chances of any DVT. YOLANDA/MODL Voice ID: [id number]
[2021-06-19] MEDS ORDERED: CEFAZOLIN SODIUM 1 GM/VIAL ONE (12:22)
[2021-06-19] MEDS ORDERED: propofoL 200 MG/20 ML VIAL IV ONE (12:30)
[2021-06-19] MEDS ORDERED: LIDOCAINE 2% MPF 5 ML VIAL ONE (12:30)
[2021-06-19] MEDS ORDERED: Phenylephrine HCl 10 MG/ML 1 ML VIAL ONE (12:31)
[2021-06-19] MEDS ORDERED: GLYCOPYRROLATE 0.2 MG/ML SYR ONE (14:04)
[2021-06-19] MEDS ORDERED: dexAMETHasone 10 MG/ML VIAL ONE (14:08)
[2021-06-19] MEDS ORDERED: KETOROLAC 30 MG/ML INJ ONE (14:08)
[2021-06-19] MEDS ORDERED: ONDANSETRON 4 MG/2 ML VIAL ONE (14:08)
[2021-06-19] MEDS ORDERED: Ringers Lactate 1,000 ML IV ONE (14:23)
--- NOTE | 2021-06-19 14:31 | P.BOP ---
Preoperative diagnosis: left IT fracture Postoperative diagnosis: same Estimated blood loss: 100ccs Anesthesia: General Complications: None Transferred to: Recovery Room
--- NOTE | 2021-06-19 15:06 | OP ---
Date of Procedure: 06/19/2021 Surgeon: Angel David MD Preoperative Diagnosis: Left intertrochanteric femur fracture. Postoperative Diagnosis: Left intertrochanteric femur fracture. Procedure: Left intertrochanteric femur fracture closed reduction with intramedullary navarro fixation. Estimated Blood Loss: 100 cc. Complications: There were no complications. Specimens: No pathology specimens sent. Indications For Operation: Ms. Ayala is a 71-year-old female who unfortunately fell injuring her left lower extremity. She was seen and examined in the emergency department, ruled out for other injuries . However x-rays demonstrated a left intertrochanteric fracture. Risks, benefits, and alternatives of different methods of treating this have been discussed with and at that time we planned for closed reduction intramedullary nailing. She states she understands things as presented and wishes to proc eed. Description Of Procedure: The patient was taken to the operating room and placed in supine position. General anesthesia was obtained by staff. Following this, she was then appropriately placed on the fracture table. The hip was then placed in a good position of reduction and hip was then prepped an d draped in the usual sterile fashion for the procedure. The greater trochanter was marked out. A v ertical incision made directly over the greater trochanter, taken down carefully through skin. Metic ulous hemostasis being maintained. This was followed through to the fascia. A finger was placed thr ough the fascia and the tip of the greater trochanter was palpated. A starting point was made just a t the more medial aspect of the greater trochanter. It was taken down carefully using the awl. This was followed by placement of the guide navarro, which was placed without difficulty. After this, hand r eamer was then used to ream down to the lesser trochanter, ensuring that the reduction was maintained . The navarro was then placed to appropriate depth. She is a quite small lady, so decision was made to go center center with the screw which was placed without difficulty. After this, there was some cons ideration about the use of antirotation pin. However, she is very small, so the decision was made to lock the screw proximally using the locking mechanism. This was followed by placement of a distal i nterlocking screw. After this, the wounds were irrigated. The fascia was closed using heavy Vicryl sutures, followed by closure of skin using 2-0 Vicryl followed by priyanka. The patient was then plac ed in Aquacel dressing, awakened, and taken to recovery room in good condition. There were no compli cations. SE/MODL Voice ID: [id number] Report ID: [id number]
--- NOTE | 2021-06-19 15:44 | RAD REPORT ---
EXAM DESCRIPTION: RAD - Hip In Or - 06/19/2021 3:34 pm FINDINGS: There were 9 portable C-arm views submitted from fluoroscopic assisted placement of fractu re fixation hardware. No suspicious or unexpected finding. Fluoro time was 0.8 minutes with cumulative dose of 8.21 mGy.
[2021-06-19] MEDS: METFORMIN HCL 500 MG TAB PO SCH (19:00)
[2021-06-19] MEDS: GABAPENTIN 300 MG CAP PO SCH (21:00)
[2021-06-19] MEDS: ROPINIROLE HCL 1 MG TAB PO SCH (21:00)
[2021-06-19] MEDS: LOSARTAN POTASSIUM 50 MG TABLET PO SCH (21:00)
[2021-06-19] MEDS: CEFAZOLIN/NS 1gm 1 GM/50 ML BAG IVPB SCH (21:43)
[2021-06-20] MEDS ORDERED: MAGNESIUM HYDROXIDE 8% 30 ML PO PRN (06:10)
[2021-06-20] MEDS: CEFAZOLIN/NS 1gm 1 GM/50 ML BAG IVPB SCH (06:24)
[2021-06-20] MEDS: MORPHINE 2 MG/ML SYR IV PRN ×3 (06:29→16:32)
[2021-06-20] MEDS: INSULIN -REGULAR HUMAN 50 UNIT/0.5 ML ML SQ SCH ×4 (07:30→21:00)
[2021-06-20 07:58] LABS: Hematocrit 31.6 % (36.0-45.0)
[2021-06-20] MEDS ORDERED: PNEUMOCOCCAL VACCINE 0.5 ML IMVAC ONE (08:00)
[2021-06-20] MEDS: ENOXAPARIN 40 MG/0.4 ML SQ SCH (08:14)
[2021-06-20] MEDS: METFORMIN HCL 500 MG TAB PO SCH ×2 (08:14→16:32)
[2021-06-20] MEDS: GABAPENTIN 300 MG CAP PO SCH ×2 (08:15→21:43)
[2021-06-20] MEDS: FAMOTIDINE 20 MG TAB PO SCH (08:15)
[2021-06-20] MEDS: LOSARTAN POTASSIUM 50 MG TABLET PO SCH ×2 (08:15→21:00)
[2021-06-20] MEDS: PANTOPRAZOLE 40MG TABLET PO SCH (08:16)
[2021-06-20] MEDS ORDERED: atenoloL 25 MG TAB PO SCH (09:00)
[2021-06-20] MEDS ORDERED: DOCUSATE NA/SENNA CONC 1 TAB PO SCH (21:00)
[2021-06-20] MEDS: ROPINIROLE HCL 1 MG TAB PO SCH (21:43)
--- NOTE | 2021-06-20 22:56 | PN ---
Date of Progress Note: 06/20/2021 Subjective: The patient was seen this morning for followup. No new complaints or problems reported by her. She was lying in bed, not in distress. Objective: Vital Signs: Reviewed. HEENT: Examination unremarkable. Lungs: Clear to auscultation. Heart: Sounds normal. Abdomen: Soft. Bowel sounds normal. No guarding, rigidity, tenderness, or distention. Extremities : No leg edema. Impression: 1.Left hip fracture. 2.Anemia due to acute blood loss. 3.Hypertension. 4.Type 2 diabetes mellitus. Plan: We will go ahead and continue current medication. Hemoglobin done this morning was 10.2, yest erday it was 11.8. Fingerstick blood sugar readings reviewed. We will continue current diabetes man agement. Continue current pain medication. DVT prophylaxis will be started using Lovenox per order, and I will see her tomorrow for followup. We will consult inpatient rehab along with physical thera py. YOLANDA/MODL Voice ID: [id number] Report ID: [id number]
[2021-06-21 04:48] VITALS: BP 127/59; TEMP 98.1
[2021-06-21] MEDS: MORPHINE 2 MG/ML SYR IV PRN (05:17)
[2021-06-21 05:56] LABS: Absolute Lymphocytes (CBC) 0.5 K/uL (0.7-4.9); Basophils % 0.2 % (0-1.3); Hematocrit 28.8 % (36.0-45.0); Lymphocytes % 9.3 % (15.3-44.8); MPV 9.5 fL (7.6-11.3); RBC Red Blood Cell Count 3.28 M/uL (3.86-4.86)
[2021-06-21 06:05] LABS: BUN Blood Urea Nitrogen 7 mg/dL (7-18); Bicarbonate 30 mmol/L (21-32); Glucose Level 125 mg/dL (74-106); Magnesium 1.7 mg/dL (1.8-2.4); Sodium Level 141 mmol/L (136-145)
[2021-06-21] MEDS: INSULIN -REGULAR HUMAN 50 UNIT/0.5 ML ML SQ SCH ×2 (07:30→11:30)
[2021-06-21] MEDS: ENOXAPARIN 40 MG/0.4 ML SQ SCH (08:06)
[2021-06-21] MEDS: PANTOPRAZOLE 40MG TABLET PO SCH (08:07)
[2021-06-21] MEDS: METFORMIN HCL 500 MG TAB PO SCH (08:07)
[2021-06-21] MEDS: LOSARTAN POTASSIUM 50 MG TABLET PO SCH (08:07)
[2021-06-21] MEDS: FAMOTIDINE 20 MG TAB PO SCH (08:08)
[2021-06-21] MEDS ORDERED: MAGNESIUM SULFATE 1 gm IVPB 1 GM/100 ML BAG IV ONE (09:00)
[2021-06-21] MEDS ORDERED: OXYBUTYNIN ER 5 MG TAB PO SCH (09:00)
[2021-06-21] MEDS ORDERED: DULOXETINE 30 MG CAP PO SCH (09:00)
[2021-06-21] MEDS ORDERED: ARIPiprazole 5 MG TAB PO SCH (09:00)
[2021-06-21] MEDS ORDERED: GABAPENTIN 300 MG CAP PO SCH (09:00)
[2021-06-21] MEDS ORDERED: SERTRALINE HCL 100 MG TAB PO SCH ×2 (09:00)
[2021-06-21] MEDS ORDERED: AMLODIPINE 5 MG TAB PO SCH (09:00)
[2021-06-21 09:51] VITALS: O2SAT 94
--- NOTE | 2021-06-21 13:39 | PN ---
Date of Progress Note: 06/21/2021 The patient is seen today. She was resting apparently comfortably in her bed. Her incisions and cee ssing are clean, dry, and intact with no sign of expanding hematoma or bleeding. Review of her hemog lobin shows 9.7. She says she has been up with Physical Therapy. At this point, I think the plan is sometime today to go upstairs to rehab. We would like for her to have continued touchdown weightbea ring as well as removal of the priyanka postop day 10 to 14, also continue anticoagulation for 3 weeks . She does not need any hip precautions. Change the dressing only as needed. It is very typical fo r us to see her back 2 weeks from time of surgery and also 6 weeks from time of surgery for x-rays to allow weightbearing at that time. This has been explained and all of her questions were otherwise a nswered. NORRIS Voice ID: [id number] Report ID: [id number]
--- NOTE | 2021-06-22 05:15 | DS ---
Date of Discharge: 06/21/2021 Disposition: Discharged to go to rehab floor. Physical Examination: HEENT: Unremarkable. Lungs: Clear to auscultation. Heart: Sounds normal. Abdomen: Soft. Bowel sounds normal. No guarding, rigidity, tenderness, or distention. Extremities: No leg edema. Hospital Course: This is a 71-year-old very pleasant female patient who was admitted to the hospital after she fell down at home and not able to get up. She was brought into the emergency room. Furth er evaluation revealed presence of left hip fracture. Dr. David from Orthopedic Surgery was cons ulted and the patient had surgery done day before yesterday. Postoperatively, she did very well. Jace liu has some mild acute blood loss anemia, but has not required any blood transfusion. She is particip ating well with physical therapy. Inpatient rehab was consulted and today patient was discharged to go to inpatient rehab in stable condition where I will continue to follow up with her. Final Diagnoses: 1.Left hip intertrochanteric fracture. 2.Acute blood loss anemia. 3.Thrombocytopenia. 4.Hypertension. 5.Mixed hyperlipidemia. 6.Type 2 diabetes mellitus. 7.Gastroesophageal reflux disease. 8.Diverticulosis. 9.Depression. 10.Osteopenia. Discharge Medications: See copy of transfer order for details. Laboratory Data: Upon admission, white count 7, hemoglobin 12.2, platelets 200. Today, white count 5.9, hemoglobin 9.7, platelets 122. Last chemistry: Today, sodium 141, potassium 4, chloride 105, b icarb 30, BUN 7, creatinine 0.45, glucose 125, magnesium 1.7. Upon admission, magnesium was 1.6. CO VID-19 test negative. YOLANDA/MODL Voice ID: [id number] Report ID: [id number]
== END 2021-06-21 14:45 | DRG 481 ==
LOC: ER 18:58 → ERHOLD 06-19 01:08 → 2ND 06-19 01:36
PROVIDERS: ADMIT Internal Medicine; ATTEND Internal Medicine
PROC: 0QS736Z Reposition Left Upper Femur with Intramedullary Internal Fixation Device, Percutaneous Approach (ICD-10-PCS; principal; 2021-06-19 12:00)
DX: S72.145A Nondisplaced intertrochanteric fracture of left femur, initial encounter for closed fracture (principal); D62 Acute posthemorrhagic anemia; K21.9 Gastro-esophageal reflux disease without esophagitis; E11.9 Type 2 diabetes mellitus without complications; F32.A Depression, unspecified; M85.80 Other specified disorders of bone density and structure, unspecified site; K57.90 Diverticulosis of intestine, part unspecified, without perforation or abscess without bleeding; D69.6 Thrombocytopenia, unspecified; E78.2 Mixed hyperlipidemia; I10 Essential (primary) hypertension; W01.0XXA Fall on same level from slipping, tripping and stumbling without subsequent striking against object, initial encounter; Z88.8 Allergy status to other drugs, medicaments and biological substances; Z79.84 Long term (current) use of oral hypoglycemic drugs; Z79.899 Other long term (current) drug therapy; Z90.49 Acquired absence of other specified parts of digestive tract; Z90.710 Acquired absence of both cervix and uterus; Z20.822 Contact with and (suspected) exposure to COVID-19
CPT/HCPCS: 36415; 71045; 72170; 73530; 80048; 80076; 82947; 83735; 83880; 84484; 85014; 85018; 85025; 85610; 85730; 93005; 94010; 96374; 96375; 97110; 97112; 97116; 97161; 97530; 99285; J0690; J1100; J1650; J2270; J2370; J2405; J2704; J3010; J3475; J7030; J7040; J7042; J7120; U0003

== ENCOUNTER 2021-06-21 10:15 | Inpatient (IN) | payer OTHER, BC ==
--- NOTE | 2021-06-21 11:20 | R.PREADM ---
PRE-ADMISSION SCREENING FORM SCREENING DATE AND TIME 06/20/2021 12:10 (CARPENTER HELPER) ANTICIPATED REHAB ADMISSION DATE 06/22/2021 REFERRING FACILITY [facility] REFERRAL DATE AND TIME 06/20/2021 12:10 (CARPENTER HELPER) REFERRAL ROOM# 209 ACUTE ADMIT DATE 06/19/2021 Previous Rehabilitation(s): No. ACUTE EMERGENCY MEDICAL TECHNICIAN/DC ENVIRONMENTAL COMPLIANCE TECHNICIAN Fabienne ATTENDING PHYSICIAN Aníbal Miller REFERRING PHYSICIAN REHAB FACILITY [facility] CLINICAL LIAISON Angel Kim PHYSICIAN REVIEWER Dr. Gulshan Purvis M.D. MR# [id number] NAME JOSUE GONZALEZ AD[address]ESS [address] [facility] [id number] DATE OF 1950 AGE 71 SSN# [id number] GENDER female MARITAL STATUS PREF. LANGUAGE (IF NON-SYRIAC) Portuguese ADMIT FROM 02 - [facility] PRE-HOSPITAL LIVING SETTING 01 - Home (private home/apt. board/care, assisted living, long term, transitional living) HOME TYPE AND DETAILS Type of home: single family house # of steps to enter the residence:2 # of steps within the residence: 2 # of levels in the residence: 1 PRE-HOSPITAL LIVING WITH Alone FAMILY SUPPORT Yes PRIMARY FAMILY CONTACT NAME Ludy Murrell PRIMARY FAMILY CONTACT PHONE PRIMARY FAMILY CONTACT RELATIONSHIP Friend PHONE PRIMARY FAMILY CONTACT ON ADM.? no IS PRIMARY FAMILY CONTACT AUTH. REP.? no 1ST EMERGENCY CONTACT Ludy Murrell 1ST CONTACT PHONE 1ST CONTACT RELATIONSHIP Friend PHONE 1ST CONTACT ON ADM. no IS 1ST CONTACT AUTH. REP.? no PHONE 2ND CONTACT ON ADM.? no PATIENT EMPLOYMENT STATUS Retired (for age) PATIENT EMPLOYER No Employer PAYOR INFORMATION: 1ST PAYOR NAME Medicare 1ST PAYOR PHONE 1ST PAYOR INJURY/ILLNESS DUE TO ACCIDENT? No ANOTHER DEMOCRAT RESPONSIBLE? No PRIMARY REHAB/ACUTE DIAGNOSIS: Left Hip Fracture ONSET DATE 06/19/2021 REHAB IMPAIRMENT CATEGORY (FLOR): 07 Fracture of LE (FracLE) MEETS 60% rule AFFECTED EXTREMITIES: LLE PRIMARY DIAGNOSIS-RELATED SURGERIES: Left hip intrameduallary rodding fixation RISK FOR COMPLICATIONS: - N/A HYPERTENSION HYPERGLYCEMIA MUSCLE WEAKNESS SUMMARY OF ACUTE HOSPITALIZATION: Pt. is a 71 yo Right-handed female. On 06/19/2021 she was admitted to [facility] with diagnosis Left Hip Fracture. Her impairment category is Orthopaedic Disorders 08 - Unilateral Hip Fracture (08.11). Pre-morbidly, Pt. was independent/mod-I in Locomotion, Social Cognition, Safety Awareness, Balance, a nd Transfers Control; and she had good Sphincter Control, Self-Care, Communication, and Endurance. Currently, she has deficits of Locomotion, Safety Awareness, Social Cognition, Balance, Transfers Con trol, Sphincter Control, Self-Care, and Endurance. Pt. is now referred to [facility] for acute in-patient rehabilitation in order to maximize patient's functional independence in activities of daily living, strength, ROM, and mobi lity. Patient has realistic goal of being discharged at assistance level 7-Ind to reside at Home with Pt s elf. PAST MEDICAL HISTORY NEUROPATHY TYPE 2 DIABETES MELLITUS HYPERENSION MIXED HYPERLIDEMIA GASTROESOPHAGEAL DIVERTICULOSIS DEPRESSION OSTEOPNIA PAST SURGICAL HISTORY: TONSILLECTOMY CHOLECSTECTOMY HYSTERECTOMY SURGERY FOR RIGHT WRIST FRACTURE MEDICATION ALLERGIES: No Known Drug Allergies (NKDA) ENVIRONMENTAL ALLERGIES: - Substance Allergies None Known - Other Allergies None Known CODE STATUS: Full code WEIGHT/HEIGHT/BMI: WEIGHT 123 lbs HEIGHT 5' 1" BMI 23.2 DIET: - Diet Type Regular - Diet - Solid Texture Regular - Diet - Liquid Texture Regular - Tube Feed N/A REVIEW OF SYSTEMS: - Gen Alert and awake Lying in bed No apparent distress Oriented to: person, time, and place - Vital Signs Temperature: 97.5 F SBP/DBP: 111/55 Pulse: 74 Resp: 16 Vital signs stable, afebrile - CVS RRR VITAL SIGNS Temperature: 97.5 F SBP/DBP: 112/53 Pulse: 74 Resp: 16 Vital signs stable, afebrile MEDICATIONS/TREATMENT: Other- See attached MAR (Medication Administration Record). CURRENT SPHINCTER CONTROL: Pre-hospital bladder status: unspecified # of bladder accidents in the last 7 days prior to screenin Pre-hospital bowel status: unspecified # of bowel accidents in the last 7 days prior to screenin Last Bowel Movement Date: 06/20/2021 CURRENT LOCOMOTION STATUS: distance walked 5 feet with rolling walker and assistance DETAILED CURRENT FUNCTIONAL STATUS: - Bladder accident frequency: 7-Ind - No accidents in the past 7 days - Bowel accident frequency: 7-Ind - No accidents in the past 7 days - Walking score based on distance walked: 0(N/A) score based on distance walked: 1(<=50ft) - Wheelchair score based on distance traveled: 0(N/A) QI SCORES: - Self-Care A. Eating 03-Partial/moderate assistance B. Oral hygiene 03-Partial/moderate assistance C. Toileting hygiene 02-Substantial/maximal assistance E. Shower/bathe self 02-Substantial/maximal assistance F. Upper body dressing 03-Partial/moderate assistance G. Lower body dressing 02-Substantial/maximal assistance H. Putting on/taking off footwear 88-Not attempted due to medical condition or safety concerns - Mobility A. Roll left and right 03-Partial/moderate assistance B. Sit to lying 03-Partial/moderate assistance C. Lying to sitting on side of bed 03-Partial/moderate assistance D. Sit to stand 02-Substantial/maximal assistance E. Chair/lgx-bp-hlmwd transfer 02-Substantial/maximal assistance F. Toilet transfer 02-Substantial/maximal assistance G. Car transfer 88-Not attempted due to medical condition or safety concerns I. Walk 10 feet 88-Not attempted due to medical condition or safety concerns J. Walk 50 feet with two turns 88-Not attempted due to medical condition or safety concerns K. Walk 150 feet 88-Not attempted due to medical condition or safety concerns L. Walking 10 feet on uneven surfaces 88-Not attempted due to medical condition or safety concerns M. 1 step (curb) 88-Not attempted due to medical condition or safety concerns N. 4 steps 88-Not attempted due to medical condition or safety concerns O. 12 steps 88-Not attempted due to medical condition or safety concerns P. Picking up object 88-Not attempted due to medical condition or safety concerns R. Wheel 50 feet with two turns 88-Not attempted due to medical condition or safety concerns S. Wheel 150 feet 88-Not attempted due to medical condition or safety concerns - Bladder and Bowel Bladder continence Bowel continence - Endurance Poor - Balance Fair - Safety Awareness Fair CURRENT FUNC. DEFICITS: Self-Care, Mobility, Endurance, Balance, and Safety Awareness CURRENT / PREVIOUS ASSISTIVE DEVICES: 3-in-1 Commode Rolling Walker HISTORY OF FALLS. HAS THE PATIENT HAD TWO OR MORE FALLS IN THE PAST YEAR OR ANY FALL WITH INJURY IN T HE PAST YEAR?: No PRIOR SURGERY. DID THE PATIENT HAVE MAJOR SURGERY DURING THE 100 DAYS PRIOR TO ADMISSION?: No THERAPY NOTES FROM ACUTE CARE: Attached. SPECIAL NEEDS: - Safety Concerns Skin breakdown precautions needed due to skin breakdown risk PRECAUTIONS: - Weight Bearing Precaution TTWB left LE PATIENT NEEDS ACTIVE AND ONGOING THERAPEUTIC INTERVENTION OF MULTIPLE THERAPY DISCIPLINES, INCLUDING: - Dietary and Nutrition Adequate Nutrition. Nutritional Education. Nutritional Supplements. - Occupational Therapy Cognitive Retraining. Evaluate and Treat. ADL Training. Transfer Training. Adaptive Equipment. UE Str engthening. Household Tasks. Patient/Family Education. Visual Perceptual Training. - Speech Therapy Cognitive Training. Expressive Language Skills. Memory Strategies. Receptive Language Skills. Speech Intelligibility Training. - Physical Therapy Evaluate and Treat. Gait Training. Balance Training. Transfer Training. LE Strengthening. Mobility Tr aining. Safety Awareness. Patient/Family Education. PATIENT NEEDS CLOSE MEDICAL SUPERVISION BY A REHABILITATION PHYSICIAN FOR: Coordination of Treatment Team Post-Op Complications Medical and Co-Morbidity Management Pain Management Diabetes Management DVT Management PATIENT REQUIRES 24X7 REHAB NURSING FOR MEDICAL AND FUNCTIONAL MGT. OF THE FOLLOWING DEFICITS: Disease Management Medication Management Patient/Family Education Providing Safe Environment PATIENT REQUIRES INTENSIVE, COORDINATED INTERDISCIPLINARY APPROACH TO REHAB: Arranging Home Equipment/Services Discharge Planning Family Intervention/Training Basin Cleaner/Case Management PATIENT REHAB POTENTIAL: Sabiha GONZALEZ is able and expected to receive 3 hours of individualized therapy daily on at least 5 of every 7 days Sabiha GONZALEZ's prognosis for significant practical improvement within a reasonable period of time appears G ood Expected level of measurable improvement will be of a practical value to Sabiha GONZALEZ's functional capacity or adaptations to impairments Has a viable Discharge Plan Medically appropriate; condition is sufficiently stable to participate in intensive rehab program DISCHARGE PLAN: - Estimated Length of Stay (days) 14. - Consensus on plan Discharge plan has been discussed with primary caregiver. Patient/Family is in agreement with the aleida n. Primary caregiver is in agreement with the plan. - Patient/Family Goals Return home independently. - Planned Living Setting Upon Discharge Home, to live alone. Transitional Living. Primary caregiver: Pt self. RECOMMENDED CARE LEVEL: IRF RECOMMENDATION DETAILS: Recommended Admission to Comprehensive Rehabilitation Program to Increase Functional [place] SCREENER'S COMPLETENESS CONFIRMATION: - Screening Confirmation The patient data collection on this preadmission screening form is finished PHYSICIANS REVIEW AND ADMISSION DETERMINATION Admit - Based on my review of the Pre-Admission Screening results, in my medical judgment and experie nce, I concur with the findings and recommend admission to [facility], as this patient requires an IRF level of care. SIGNATURE PANEL: Education Spec - [electronically] signed by Angel Kim on 06/21/2021 at 09:53 (CARPENTER HELPER) Education Spec - [electronically] signed by Irvin Alvarez PT on 06/21/2021 at 10:58 (CARPENTER HELPER) Physician Reviewer - [electronically] signed by Dr. Gulshan Purvis M.D. on 06/21/2021 at 11:20 (CARPENTER HELPER )
[2021-06-21 15:43] VITALS: BMI 28.8
[2021-06-21] MEDS ORDERED: D50W 25 GM/50 ML SYRINGE IV PRN (15:54)
[2021-06-21] MEDS ORDERED: GLUCAGON 1 MG/VIAL IM PRN (15:54)
[2021-06-21] MEDS: INSULIN -REGULAR HUMAN 50 UNIT/0.5 ML ML SQ SCH ×2 (16:30→20:31)
[2021-06-21 16:37] LABS: Urine Appearance CLEAR (Clear); Urine Bilirubin NEGATIVE (Negative); Urine Blood NEGATIVE (Negative); Urine Color YELLOW (Yellow); Urine Glucose NEGATIVE (Negative); Urine Protein NEGATIVE (Negative)
[2021-06-21] MEDS: METFORMIN HCL 500 MG TAB PO SCH (17:22)
[2021-06-21] MEDS: ACETAMINOPHEN 500 MG TAB PO PRN (17:23)
[2021-06-21] MEDS ORDERED: ONDANSETRON 4 MG (ODT) TAB PO PRN (18:51)
[2021-06-21] MEDS: DOCUSATE NA/SENNA CONC 1 TAB PO SCH (20:32)
[2021-06-21] MEDS: LOSARTAN POTASSIUM 50 MG TABLET PO SCH (20:32)
[2021-06-21] MEDS: ROPINIROLE HCL 1 MG TAB PO SCH (20:33)
[2021-06-21] MEDS: GABAPENTIN 300 MG CAP PO SCH (20:34)
[2021-06-21 21:08] LABS: Urine Bacteria <20 /HPF (<20); Urine RBC <5 /HPF (NONE SEEN); Urine Urothelial Cells <5 /HPF (NONE SEEN)
[2021-06-22 05:00] LABS: Absolute Lymphocytes (CBC) 0.6 K/uL (0.7-4.9); Hematocrit 32.2 % (36.0-45.0); Lymphocytes % 8.1 % (15.3-44.8); MPV 10.3 fL (7.6-11.3); RBC Red Blood Cell Count 3.65 M/uL (3.86-4.86)
[2021-06-22 05:16] LABS: Albumin 2.5 g/dL (3.4-5.0); BUN Blood Urea Nitrogen 7 mg/dL (7-18); Bicarbonate 31 mmol/L (21-32); Glucose Level 134 mg/dL (74-106); Magnesium 1.8 mg/dL (1.8-2.4); Potassium 3.8 mmol/L (3.5-5.1); Prealbumin 12.2 mg/dL (20-40); Sodium Level 142 mmol/L (136-145)
[2021-06-22] MEDS: PANTOPRAZOLE 40MG TABLET PO SCH (06:33)
[2021-06-22] MEDS: ENOXAPARIN 40 MG/0.4 ML SQ SCH (06:33)
[2021-06-22] MEDS: INSULIN -REGULAR HUMAN 50 UNIT/0.5 ML ML SQ SCH ×4 (07:00→20:11)
[2021-06-22] MEDS: FAMOTIDINE 20 MG TAB PO SCH (08:24)
[2021-06-22] MEDS: SERTRALINE HCL 100 MG TAB PO SCH (08:25)
[2021-06-22] MEDS: ARIPiprazole 5 MG TAB PO SCH (08:25)
[2021-06-22] MEDS: GABAPENTIN 300 MG CAP PO SCH ×3 (08:27→20:15)
[2021-06-22] MEDS: LOSARTAN POTASSIUM 50 MG TABLET PO SCH ×2 (08:28→20:15)
[2021-06-22] MEDS: OXYBUTYNIN ER 5 MG TAB PO SCH (08:28)
[2021-06-22] MEDS: AMLODIPINE 5 MG TAB PO SCH (08:29)
[2021-06-22] MEDS: METFORMIN HCL 500 MG TAB PO SCH ×2 (08:31→17:00)
[2021-06-22] MEDS: TRAMADOL HCL 50 MG TAB PO PRN (08:32)
[2021-06-22] MEDS: ACETAMINOPHEN 500 MG TAB PO PRN (13:44)
--- NOTE | 2021-06-22 17:20 | R.HP ---
HISTORY AND PHYSICAL FACILITY: [facility] ENCOUNTER DATE AND TIME: 06/22/2021 17:10 (SORTING MACHINE ATTENDANT) MR#: [id number] NAME JOSUE GONZALEZ ADDRESS: [address] [place] [address] CITY: [place]IP [address] PHONE: DATE OF : 1950 AGE: 71 SSN# [id number] GENDER: Female MARITAL STATUS PRE-HOSPITAL LIVING SETTING 01 - Home (private home/apt. board/care, assisted living, nursing home, transitional living) PRE-HOSPITAL LIVING WITH Alone ENCOUNTER PHYSICIAN: Dr. Gulshan Purvis M.D. REFERRING DOCTOR: DATE OF ADMISSION: 06/21/2021 14:50 (SORTING MACHINE ATTENDANT) REFERRING FACILITY [facility] HOME TYPE AND DETAILS: Type of home: single family house # of steps to enter the residence:2 # of steps within the residence: 2 # of levels in the residence: 1 ONSET DATE: 06/19/2021 PRIMARY DIAGNOSIS-RELATED SURGERIES: Left hip intrameduallary rodding fixation HISTORY OF PRESENT ILLNESS (HPI): Pt. is a 71 yo Right-handed female. On 06/19/2021 she was admitted to [facility] with diagnosis Left Hip Fracture. Her impairment category is Orthopaedic Disorders 08 - Unilateral Hip Fracture (08.11). Pre-morbidly, Pt. was independent/mod-I in Locomotion, Social Cognition, Safety Awareness, Balance, a nd Transfers Control; and she had good Sphincter Control, Self-Care, Communication, and Endurance. Currently, she has deficits of Locomotion, Safety Awareness, Social Cognition, Balance, Transfers Con trol, Sphincter Control, Self-Care, and Endurance. Pt. is now referred to [facility] for acute in-patient rehabilitation in order to maximize patient's functional independence in activities of daily living, strength, ROM, and mobi lity. Patient has realistic goal of being discharged at assistance level 7-Ind to reside at Home with Pt s elf. MEDICATION ALLERGIES: No Known Drug Allergies (NKDA) ENVIRONMENTAL ALLERGIES: - Substance Allergies None Known - Other Allergies None Known PAST MEDICAL HISTORY: NEUROPATHY TYPE 2 DIABETES MELLITUS HYPERENSION MIXED HYPERLIDEMIA GASTROESOPHAGEAL DIVERTICULOSIS DEPRESSION OSTEOPNIA PAST SURGICAL HISTORY: TONSILLECTOMY CHOLECSTECTOMY HYSTERECTOMY SURGERY FOR RIGHT WRIST FRACTURE SOCIAL HISTORY: - Home Living Alone REVIEW OF SYSTEMS: - Gen No Chills Fatigue No Fever - Eyes No Double Vision No itchiness - ENMT No Difficulty Swallowing - CVS No Chest Discomfort No Chest Pain Fatigue No Weight Gain - Resp No Cough No Shortness of Breath - GI Continent No Abdominal Pain Constipation No Diarrhea - Continent No Kidney Pain No Painful Urination No Urinary Urgency - MSK No Joint Pain Muscle Cramps Stiffness - Skin No Itching No Rash No Suspicious Lesions - Neuro Coordination Difficulty No Difficulty with Concentration No Memory Loss No Seizures Weakness - Psych No Anxiety No Depression No HIV Exposure No Persistent Infections No Seasonal Allergies - Endo No Cold/Heat Intolerance No Excessive Hunger No Excessive Thirst No Excessive Urination PHYSICAL EXAM - Gen Alert and awake Lying in bed No apparent distress Oriented to: person, time, and place - Skin No breakdown No abnormalities - Eyes No abnormalities - ENMT No abnormalities - Neck No abnormalities - CVS RRR - Chest No abnormalities - Abd Soft - GI + bowel sound Deferred - No abnormalities - Ext Mild left lower extremity edema. - MSK 4+/5 weakness in left lower extremity - Neuro 4/5 strength left lower extremity. VITAL SIGNS Temperature: 98.0 F SBP/DBP: 160/75 Pulse: 82 Resp: 16 NURSING: - Shower allowing shower - Skin care per protocol PRECAUTIONS: - Weight Bearing Precaution TTWB left LE ACTIVITIES OOB only with supervision QI SCORES: - Self-Care A. Eating 03-Partial/moderate assistance B. Oral hygiene 03-Partial/moderate assistance C. Toileting hygiene 02-Substantial/maximal assistance E. Shower/bathe self 02-Substantial/maximal assistance F. Upper body dressing 03-Partial/moderate assistance G. Lower body dressing 02-Substantial/maximal assistance H. Putting on/taking off footwear 88-Not attempted due to medical condition or safety concerns - Mobility A. Roll left and right 03-Partial/moderate assistance B. Sit to lying 03-Partial/moderate assistance C. Lying to sitting on side of bed 03-Partial/moderate assistance D. Sit to stand 02-Substantial/maximal assistance E. Chair/aqi-fo-qsuvr transfer 02-Substantial/maximal assistance F. Toilet transfer 02-Substantial/maximal assistance G. Car transfer 88-Not attempted due to medical condition or safety concerns I. Walk 10 feet 88-Not attempted due to medical condition or safety concerns J. Walk 50 feet with two turns 88-Not attempted due to medical condition or safety concerns K. Walk 150 feet 88-Not attempted due to medical condition or safety concerns L. Walking 10 feet on uneven surfaces 88-Not attempted due to medical condition or safety concerns M. 1 step (curb) 88-Not attempted due to medical condition or safety concerns N. 4 steps 88-Not attempted due to medical condition or safety concerns O. 12 steps 88-Not attempted due to medical condition or safety concerns P. Picking up object 88-Not attempted due to medical condition or safety concerns R. Wheel 50 feet with two turns 88-Not attempted due to medical condition or safety concerns S. Wheel 150 feet 88-Not attempted due to medical condition or safety concerns - Bladder and Bowel Bladder continence Bowel continence - Endurance Poor - Balance Fair - Safety Awareness Fair CURRENT FUNC. DEFICITS: Self-Care, Mobility, Endurance, Balance, and Safety Awareness MEDICATIONS: - Other See attached MAR (Medication Administration Record) ASSESSMENT: Pt. is a 71 yo Right-handed female.On 06/19/2021 she was admitted to [facility] with diagnosis Left Hip Fracture.Her impairment category is Orthopaedic Disorders 08 - Unilateral Hip Fr acture (08.11).Pre-morbidly, Pt. was independent/mod-I in Locomotion, Social Cognition, Safety Awaren ess, Balance, and Transfers Control; and she had good Sphincter Control, Self-Care, Communication, an d Endurance.Currently, she has deficits of Locomotion, Safety Awareness, Social Cognition, Balance, T ransfers Control, Sphincter Control, Self-Care, and Endurance.Pt. is now referred to [facility] for acute in-patient rehabilitation in order to maximize patient's functional indep endence in activities of daily living, strength, ROM, and mobility.- Rehab Goal Patient has realistic goal of being discharged at assistance level 7-Ind to reside at Home with Pt s elf. - Physical Therapy Decreased range of motion - to improve, our physical therapists will perform initial evaluation of pt 's status upon admission and devise an individualized program for increasing patient's Range of Motio n. Gait dysfunction - to improve, our physical therapists will perform initial evaluation of pt's status upon admission and devise an individualized program for Gait Training, and Wheel Chair mobility Inability to transfer - to improve, our physical therapists will perform initial evaluation of pt's s tatus upon admission and devise an individualized program for Bed mobility Need for home safety evaluation - to improve, our physical therapists will perform initial evaluation of pt's status upon admission and devise an individualized program for Home Evaluation Need in caregiver upon discharge - to improve, our physical therapists will perform initial evaluatio n of pt's status upon admission and devise an individualized program for Caregiver Training New precaution - to improve, our physical therapists will perform initial evaluation of pt's status u earlene admission and devise an individualized program for Patient precaution education Edema - to improve, our physical therapists will perform initial evaluation of pt's status upon admi ssion and devise an individualized program for Elevation Training, and Lymphedema Therapy Poor balance - to improve, our physical therapists will perform initial evaluation of pt's status upo n admission and devise an individualized program for Balance Training Poor endurance - to improve, our physical therapists will perform initial evaluation of pt's status u earlene admission and devise an individualized program for Endurance Training Weakness - to improve, our physical therapists will perform initial evaluation of pt's status upon ad mission and devise an individualized program for Aquatic Therapy, Neuromuscular Reeducation, and Stre ngthening Achieving independence - to improve, our physical therapists will perform initial evaluation of pt's status upon admission and devise an individualized program for Community Reintegration Activities - Occupational Therapy ADL deficits - to improve, our occupation therapists will perform initial evaluation of pt's status u earlene admission and devise an individualized program for Bathing, Bed mobility, Community Reintegration , Cooking, Dressing, Eating, Fine Motor Skills, Grooming, Homemaking, Kitchen Mobility, Laundry, Dara ent Education, Safety Awareness, Splinting - Positioning, Transfers(Toilet, Tub, Shower), and Wheel C hair Management Cognitive deficits - to improve, our occupation therapists will perform initial evaluation of pt's st atus upon admission and devise an individualized program for Cognition - orientation Need for healthcare marketer - to improve, our occupation therapists will perform initial evaluation of pt's s tatus upon admission and devise an individualized program for Caregiver Training Weakness - to improve, our occupation therapists will perform initial evaluation of pt's status upon admission and devise an individualized program for Aquatic Therapy, Balance, Endurance, UE ROM, and U E strengthening MEDICAL PLAN: - Anterior Hip Precaution No abduction No active extension No adduction across midline No external rotation No hip flexion >90 degrees No internal rotation - Diet - Liquid Texture Start Regular - Tube Feed Start N/A - Diet Type Start Regular - Posterior Hip Precaution No adduction across midline No external rotation No hip flexion >90 degrees No internal rotation No wheel chair propulsion - Weight Bearing Precaution TTWB left LE - Skin care per protocol - Other See attached MAR (Medication Administration Record) - Diet - Solid Texture Regular - Shower shower DISCHARGE PLAN: - Estimated Length of Stay (days) 14. - Consensus on plan Discharge plan has been discussed with primary caregiver. Patient/Family is in agreement with the aleida n. Primary caregiver is in agreement with the plan. - Patient/Family Goals Return home independently. - Planned Living Setting Upon Discharge Home, to live alone. Transitional Living. Primary caregiver: Pt self. SIGNATURE PANEL: (SORTING MACHINE ATTENDANT)
--- NOTE | 2021-06-22 17:23 | PAPE ---
POST ADMISSION PHYSICIAN EVALUATION PATIENT: [facility] MR# [id number] REFERRING DOCTOR EVALUATION DATE AND TIME 06/22/2021 17:20 (PURSE MAKER) NAME JOSUE GONZALEZ DATE OF 1950 AGE 71 PHONE SSN# [id number] GENDER female EVALUATING PHYSICIAN Dr. Gulshan Purvis M.D. ADMISSION DIAGNOSIS: Left Hip Fracture ONSET DATE 06/19/2021 POST-ADMISSION FUNCTIONAL/MEDICAL STATUS: - Bladder Same accident frequency: 7-Ind - No accidents in the past 7 days - Bowel Same accident frequency: 7-Ind - No accidents in the past 7 days - Walking Same score based on distance walked: 0(N/A) Same score based on distance walked: 1(<=50ft) - Wheelchair Same score based on distance traveled: 0(N/A) STATUS CHANGE EVALUATION: No change in Functional or Medical Status is identified compared with Pre-Admission screening. PATIENT NEEDS CLOSE MEDICAL SUPERVISION BY A REHABILITATION PHYSICIAN FOR: Coordination of Treatment Team Post-Op Complications Medical and Co-Morbidity Management Pain Management Diabetes Management DVT Management PATIENT REQUIRES 24X7 REHAB NURSING FOR MEDICAL AND FUNCTIONAL MGT. OF THE FOLLOWING DEFICITS: Disease Management Medication Management Patient/Family Education Providing Safe Environment PATIENT REQUIRES INTENSIVE, COORDINATED INTERDISCIPLINARY APPROACH TO REHAB: Arranging Home Equipment/Services Discharge Planning Family Intervention/Training Assisted Living Coordinator/Case Management LIST OF IDENTIFIED AND POTENTIAL PROBLEMS: Alteration in leisure activities Bladder, Incontinence Bowel, Incontinence Infection, Actual or Potential Mobility Impaired Pain, Alteration in Comfort Self Care Deficit Skin Integrity, Actual or Potential Urinary Tract Infection (UTI), Actual or Potential RISK FOR COMPLICATIONS - N/A HYPERTENSION. HYPERGLYCEMIA. MUSCLE WEAKNESS. PATIENT COULD BE AT RISK FOR COMPLICATIONS FROM ADVERSE MEDICAL CONDITIONS DUE TO HIS/HER COMORBIDITI ES AND THE RIGORS OF THE INTENSIVE REHABILLITATION PROGRAM. METHODS OR INTERVENTIONS TO AVOID COMPLIC ATIONS INCLUDE: - Deep Vein Thrombosis (DVT) Prophylaxis therapy for prevention . Sequential Compression Device (SCD). TE D Hose. - Infection Clinical staff to assess and manage the signs and symptoms of infection including fever, redness, war mth, etc. - Urinary Tract Infection - Falls Patient will be evaluated for Fall Precautions and will be placed on Fall Precautions as indicated pe r protocol. - Skin Breakdown Nursing will assess skin daily using assessment tool and will place on Skin Breakdown Precautions as indicated per protocol. - Pain Clinical staff may employ non-medication methods such as massage, distraction, decrease stimulus, etc . as needed. Clinical staff will assess patient's pain level every shift per protocol to assess and e nsure pain management effectiveness. Medications will be given and the pain level re-assessed. PRELIMINARY PLAN OF CARE: - Physical Therapy Patient needs Physical Therapy for a daily minimum of 1.5 hours at least 5 out of 7 days, to improve: Mobility, Strengthening, Transfers, Stretching, ROM, Endurance, Ability to manage stairs, Gait, and Balance. - Speech Therapy Patient needs Speech Therapy for a daily minimum of 0.5 hours at least 5 out of 7 days, to improve: S wallowing, Cognition, Language Skills, and Compensatory Strategies. - Rehabilitation Nursing Patient requires 24x7 Rehabilitation Nursing for: Pain Issues, Identifying and preventing risk factor s, Monitoring and reporting current medical conditions, Assisting with ambulation and transfer, Elmo ting with all ADL-s, Teaching patients about disease process and medications, Family teaching, Provid ing safe environment, Bowel and Bladder Issues, Skin Integrity, and Medication Management. Patient needs Assisted Living Coordinator and/or Case Management for: Discharge Planning, Arranging Home Equipmen t or Services, and Family Interventions. - Dietary and Nutrition Services Patient needs Dietary and Nutrition Services for: Adequate Nutrition, Nutritional Supplements, and Nu tritional Education. - Occupational Therapy Patient needs Occupational Therapy for a daily minimum of 1.5 hours at least 5 out of 7 days, to impr ove Activities of Daily Living, including: Eating, Grooming, Bathing, Dressing, Toileting, Toilet Tra nsfers, Community Reintegration, Higher functional activities, Adaptive Equipment, Splinting, Househo ld Tasks, and Other activities as determined. QI SCORES: - Self-Care A. Eating 03-Partial/moderate assistance B. Oral hygiene 03-Partial/moderate assistance C. Toileting hygiene 02-Substantial/maximal assistance E. Shower/bathe self 02-Substantial/maximal assistance F. Upper body dressing 03-Partial/moderate assistance G. Lower body dressing 02-Substantial/maximal assistance H. Putting on/taking off footwear 88-Not attempted due to medical condition or safety concerns - Mobility A. Roll left and right 03-Partial/moderate assistance B. Sit to lying 03-Partial/moderate assistance C. Lying to sitting on side of bed 03-Partial/moderate assistance D. Sit to stand 02-Substantial/maximal assistance E. Chair/ruz-vu-qwbua transfer 02-Substantial/maximal assistance F. Toilet transfer 02-Substantial/maximal assistance G. Car transfer 88-Not attempted due to medical condition or safety concerns I. Walk 10 feet 88-Not attempted due to medical condition or safety concerns J. Walk 50 feet with two turns 88-Not attempted due to medical condition or safety concerns K. Walk 150 feet 88-Not attempted due to medical condition or safety concerns L. Walking 10 feet on uneven surfaces 88-Not attempted due to medical condition or safety concerns M. 1 step (curb) 88-Not attempted due to medical condition or safety concerns N. 4 steps 88-Not attempted due to medical condition or safety concerns O. 12 steps 88-Not attempted due to medical condition or safety concerns P. Picking up object 88-Not attempted due to medical condition or safety concerns R. Wheel 50 feet with two turns 88-Not attempted due to medical condition or safety concerns S. Wheel 150 feet 88-Not attempted due to medical condition or safety concerns - Bladder and Bowel Bladder continence Bowel continence - Endurance Poor - Balance Fair - Safety Awareness Fair POTENTIAL FUNCTIONAL GOALS FOR PATIENT TO ACHIEVE BY DISCHARGE: - Safety Precaution Patient will remain free from falls or injury at time of discharge. - Bed Mobility Patient will perform bed mobility at 4-Oneida level of assistance. - Transfers Patient will complete transfers from bed to chair at 4-[place] level of assistance. - Mobility Patient will ambulate 150 ft with 4-Oneida level of assistance with RW. PATIENT REHAB POTENTIAL Sabiha GONZALEZ is able and expected to receive 3 hours of individualized therapy daily on at least 5 of every 7 days Sabiha GONZALEZ's prognosis for significant practical improvement within a reasonable period of time appears G ood Expected level of measurable improvement will be of a practical value to Sabiha GONZALEZ's functional capacity or adaptations to impairments Has a viable Discharge Plan Medically appropriate; condition is sufficiently stable to participate in intensive rehab program DISCHARGE PLAN: - Estimated Length of Stay (days) 14. - Consensus on plan Discharge plan has been discussed with primary caregiver. Patient/Family is in agreement with the aleida n. Primary caregiver is in agreement with the plan. - Patient/Family Goals Return home independently. - Planned Living Setting Upon Discharge Home, to live alone. Transitional Living. Primary caregiver: Pt self. CONCLUSION ON REHABILITATION NECESSITY: I have evaluated patient's pre-admission functional status and, comparing it to the patient's post-ad mission functional status now, I conclude that the pre-admission assessment was accurate. Patient's c ondition on admission supports the medical necessity of admission to IRF. It is safe to proceed with patient's therapy program. SIGNATURE PANEL: (PURSE MAKER)
[2021-06-22] MEDS: DOCUSATE NA/SENNA CONC 1 TAB PO SCH (20:15)
[2021-06-22] MEDS: MAGNESIUM OXIDE 400 MG TAB PO SCH (20:16)
[2021-06-22] MEDS: ROPINIROLE HCL 1 MG TAB PO SCH (20:16)
--- NOTE | 2021-06-22 21:24 | PN ---
Date of Progress Note: 06/22/2021 Subjective: The patient was seen this morning for followup. She was lying in bed on the rehab floor , not in any distress. Denies any complaints. Slept well overnight. She did have bowel movement ye sterday. Objective: Vital Signs: Reviewed. HEENT: Examination unremarkable. Lungs: Clear to auscultation. Heart: Sounds normal. Abdomen: Soft. Bowel sounds normal. No guarding, rigidity, tenderness, distention. Extremities: No leg edema. Laboratory Data: White count 7, hemoglobin 10.7, platelets 152. Sodium 142, potassium 3.8, chloride 105, bicarb 31, BUN 7, creatinine 0.49, glucose 134, magnesium 2.5. Impression: 1.Left hip fracture. 2.Anemia due to acute blood loss. 3.Hypertension. 4.Depression. Plan: We will continue current medication. Continue current stool softener, DVT prophylaxis, curren t pain medication, and antihypertensive medication. We will continue current antidepressant medicati on. Physical therapy to be provided under guidance of Dr. Purvis and I will see her tomorrow for ankit ramon. YOLANDA/MODL Voice ID: [id number] Report ID: [id number]
[2021-06-23 04:38] LABS: Absolute Lymphocytes (CBC) 0.6 K/uL (0.7-4.9); Hematocrit 30.7 % (36.0-45.0); Lymphocytes % 9.4 % (15.3-44.8); MPV 9.9 fL (7.6-11.3); RBC Red Blood Cell Count 3.53 M/uL (3.86-4.86)
[2021-06-23 05:00] LABS: Albumin 2.4 g/dL (3.4-5.0); BUN Blood Urea Nitrogen 9 mg/dL (7-18); Bicarbonate 29 mmol/L (21-32); Glucose Level 130 mg/dL (74-106); Magnesium 1.8 mg/dL (1.8-2.4); Potassium 3.4 mmol/L (3.5-5.1); Prealbumin 9.9 mg/dL (20-40); Sodium Level 143 mmol/L (136-145)
[2021-06-23] MEDS: LIDOCAINE 4% PATCH TOP SCH (06:50)
[2021-06-23] MEDS: ENOXAPARIN 40 MG/0.4 ML SQ SCH (06:52)
[2021-06-23] MEDS: GABAPENTIN 300 MG CAP PO SCH ×3 (06:53→21:04)
[2021-06-23] MEDS: FAMOTIDINE 20 MG TAB PO SCH (06:53)
[2021-06-23] MEDS: LOSARTAN POTASSIUM 50 MG TABLET PO SCH ×3 (06:53→20:00)
[2021-06-23] MEDS: AMLODIPINE 5 MG TAB PO SCH (06:55)
[2021-06-23] MEDS: SERTRALINE HCL 100 MG TAB PO SCH (06:57)
[2021-06-23] MEDS: OXYBUTYNIN ER 5 MG TAB PO SCH (06:57)
[2021-06-23] MEDS: MAGNESIUM OXIDE 400 MG TAB PO SCH ×2 (06:58→20:00)
[2021-06-23] MEDS: METFORMIN HCL 500 MG TAB PO SCH ×2 (06:58→17:51)
[2021-06-23] MEDS: TRAMADOL HCL 50 MG TAB PO PRN ×3 (06:59→21:06)
[2021-06-23] MEDS: PANTOPRAZOLE 40MG TABLET PO SCH (06:59)
[2021-06-23] MEDS: ARIPiprazole 5 MG TAB PO SCH (07:00)
[2021-06-23] MEDS: INSULIN -REGULAR HUMAN 50 UNIT/0.5 ML ML SQ SCH ×4 (07:30→21:00)
[2021-06-23] MEDS ORDERED: POTASSIUM CL SA 10 MEQ TAB PO ONE (08:00)
--- NOTE | 2021-06-23 18:22 | R.PN ---
PROGRESS NOTES ENCOUNTER DATE AND TIME: 06/23/2021 18:15 (BANNER PAINTER) NAME JOSUE GONZALEZ DATE OF : 1950 DATE OF ADMISSION: 06/21/2021 14:50 (BANNER PAINTER) Left Hip FractureCHIEF COMPLAINT: Left hip fracture SUBJECTIVE: Pt denied any depression. Pt denied any Shortness of Breath. WBC 6.8, Hgb 10.4, K+ 3.4, prealbumin 9.9. Ambulated 109' with minimum assistance using a rolling walker and TDWB. VITAL SIGNS Temperature: 98.0 F SBP/DBP: 153/74 Pulse: 81 Resp: 16 MEDICATION ALLERGIES: No Known Drug Allergies (NKDA) ENVIRONMENTAL ALLERGIES: - Substance Allergies None Known - Other Allergies None Known NURSING: - Shower allowing shower - Skin care per protocol PRECAUTIONS: - Weight Bearing Precaution TTWB left LE ACTIVITIES OOB only with supervision THERAPIES: - Dietary and Nutrition Adequate Nutrition. Nutritional Education. Nutritional Supplements. - Occupational Therapy Cognitive Retraining. Evaluate and Treat. ADL Training. Transfer Training. Adaptive Equipment. UE Str engthening. Household Tasks. Patient/Family Education. Visual Perceptual Training. - Speech Therapy Cognitive Training. Expressive Language Skills. Memory Strategies. Receptive Language Skills. Speech Intelligibility Training. - Physical Therapy Evaluate and Treat. Gait Training. Balance Training. Transfer Training. LE Strengthening. Mobility Tr aining. Safety Awareness. Patient/Family Education. PHYSICAL EXAM - Gen Alert and awake Lying in bed No apparent distress Oriented to: person, time, and place - Skin No breakdown No abnormalities - Eyes No abnormalities - ENMT No abnormalities - Neck No abnormalities - CVS RRR - Chest No abnormalities - Abd Soft - GI + bowel sound Deferred - No abnormalities - Ext Mild left lower extremity edema. - MSK 4+/5 weakness in left lower extremity - Neuro 4/5 strength left lower extremity. ASSESSMENT: Pt. is a 71 yo Right-handed female.On 06/19/2021 she was admitted to [facility] with diagnosis Left Hip Fracture.Her impairment category is Orthopaedic Disorders 08 - Unilateral Hip Fr acture (08.).Pre-morbidly, Pt. was independent/mod-I in Locomotion, Social Cognition, Safety Awaren ess, Balance, and Transfers Control; and she had good Sphincter Control, Self-Care, Communication, an d Endurance.Currently, she has deficits of Locomotion, Safety Awareness, Social Cognition, Balance, T ransfers Control, Sphincter Control, Self-Care, and Endurance.Pt. is now referred to [facility] for acute in-patient rehabilitation in order to maximize patient's functional indep endence in activities of daily living, strength, ROM, and mobility.- Rehab Goal Patient has realistic goal of being discharged at assistance level 7-Ind to reside at Home with Pt s elf. MDM/PLAN: - Physical Therapy Decreased range of motion - to improve, our physical therapists will perform initial evaluation of p t's status upon admission and devise an individualized program for increasing patient's Range of Diaz on. Gait dysfunction - to improve, our physical therapists will perform initial evaluation of pt's statu s upon admission and devise an individualized program for Gait Training, and Wheel Chair mobility Inability to transfer - to improve, our physical therapists will perform initial evaluation of pt's status upon admission and devise an individualized program for Bed mobility Need for home safety evaluation - to improve, our physical therapists will perform initial evaluatio n of pt's status upon admission and devise an individualized program for Home Evaluation Need in caregiver upon discharge - to improve, our physical therapists will perform initial evaluati on of pt's status upon admission and devise an individualized program for Caregiver Training New precaution - to improve, our physical therapists will perform initial evaluation of pt's status upon admission and devise an individualized program for Patient precaution education Edema - to improve, our physical therapists will perform initial evaluation of pt's status upon admis timothy and devise an individualized program for Elevation Training, and Lymphedema Therapy Poor balance - to improve, our physical therapists will perform initial evaluation of pt's status up on admission and devise an individualized program for Balance Training Poor endurance - to improve, our physical therapists will perform initial evaluation of pt's status upon admission and devise an individualized program for Endurance Training Weakness - to improve, our physical therapists will perform initial evaluation of pt's status upon a dmission and devise an individualized program for Aquatic Therapy, Neuromuscular Reeducation, and Str engthening Achieving independence - to improve, our physical therapists will perform initial evaluation of pt's status upon admission and devise an individualized program for Community Reintegration Activities - Occupational Therapy ADL deficits - to improve, our occupation therapists will perform initial evaluation of pt's status upon admission and devise an individualized program for Bathing, Bed mobility, Community Reintegratio n, Cooking, Dressing, Eating, Fine Motor Skills, Grooming, Homemaking, Kitchen Mobility, Laundry, Pat ient Education, Safety Awareness, Splinting - Positioning, Transfers(Toilet, Tub, Shower), and Wheel Chair Management Cognitive deficits - to improve, our occupation therapists will perform initial evaluation of pt's s tatus upon admission and devise an individualized program for Cognition - orientation Need for director of career resources - to improve, our occupation therapists will perform initial evaluation of pt's status upon admission and devise an individualized program for Caregiver Training Weakness - to improve, our occupation therapists will perform initial evaluation of pt's status upon admission and devise an individualized program for Aquatic Therapy, Balance, Endurance, UE ROM, and UE strengthening - Other See attached MAR (Medication Administration Record) - Anterior Hip Precaution No abduction No active extension No adduction across midline No external rotation No hip flexion >90 degrees No internal rotation - Diet - Liquid Texture Continue Regular - Tube Feed Continue N/A - Diet Type Continue Regular - Posterior Hip Precaution No adduction across midline No external rotation No hip flexion >90 degrees No internal rotation No wheel chair propulsion - Weight Bearing Precaution TTWB left LE - Skin care per protocol - Diet - Solid Texture Continue Regular - Shower allowing shower FUNCTIONAL STATUS: UPDATED AT WEEKLY TEAM CONFERENCE - Bladder Same accident frequency: 7-Ind - No accidents in the past 7 days - Bowel Same accident frequency: 7-Ind - No accidents in the past 7 days - Walking Same score based on distance walked: 0(N/A) Same score based on distance walked: 1(<=50ft) - Wheelchair Same score based on distance traveled: 0(N/A) FUNCTIONAL STATUS: - Self-Care A. Eating Ind B. Grooming Joyce C. Bathing sup D. Dressing - Upper sup E. Dressing - Lower [place] F. Toileting sup - Sphincter Control G. Bladder control Joyce H. Bowel control Joyce - Transfers Control I. Bed/Chair/Wheelchair [place] J. Toilet [place] K. Tub/Shower modA - Locomotion L. Walk/Wheelchair (B) sup M. Stairs ADNO - Communication N. Comprehension (B) sup O. Expression (B) sup - Social Cognition P. Social Interaction Joyce Q. Problem Solving sup R. Memory sup - Endurance Fair - Balance Fair - Safety Awareness Fair QI SCORES: - Self-Care A. Eating 03-Partial/moderate assistance B. Oral hygiene 03-Partial/moderate assistance C. Toileting hygiene 02-Substantial/maximal assistance E. Shower/bathe self 02-Substantial/maximal assistance F. Upper body dressing 03-Partial/moderate assistance G. Lower body dressing 02-Substantial/maximal assistance H. Putting on/taking off footwear 88-Not attempted due to medical condition or safety concerns - Mobility A. Roll left and right 03-Partial/moderate assistance B. Sit to lying 03-Partial/moderate assistance C. Lying to sitting on side of bed 03-Partial/moderate assistance D. Sit to stand 02-Substantial/maximal assistance E. Chair/ffm-od-wwkfu transfer 02-Substantial/maximal assistance F. Toilet transfer 02-Substantial/maximal assistance G. Car transfer 88-Not attempted due to medical condition or safety concerns I. Walk 10 feet 88-Not attempted due to medical condition or safety concerns J. Walk 50 feet with two turns 88-Not attempted due to medical condition or safety concerns K. Walk 150 feet 88-Not attempted due to medical condition or safety concerns L. Walking 10 feet on uneven surfaces 88-Not attempted due to medical condition or safety concerns M. 1 step (curb) 88-Not attempted due to medical condition or safety concerns N. 4 steps 88-Not attempted due to medical condition or safety concerns O. 12 steps 88-Not attempted due to medical condition or safety concerns P. Picking up object 88-Not attempted due to medical condition or safety concerns R. Wheel 50 feet with two turns 88-Not attempted due to medical condition or safety concerns S. Wheel 150 feet 88-Not attempted due to medical condition or safety concerns - Bladder and Bowel Bladder continence Bowel continence - Endurance Poor - Balance Fair - Safety Awareness Fair [facility] 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
[2021-06-23] MEDS ORDERED: BACLOFEN 10 MG TAB PO PRN (18:43)
[2021-06-23] MEDS: DOCUSATE NA/SENNA CONC 1 TAB PO SCH (21:03)
[2021-06-23] MEDS: CRANBERRY FRUIT EXTRACT 400 MG CAP PO SCH (21:04)
[2021-06-23] MEDS: ROPINIROLE HCL 1 MG TAB PO SCH (21:05)
[2021-06-24 00:03] LABS: Urine Appearance CLEAR (Clear); Urine Bilirubin NEGATIVE (Negative); Urine Blood NEGATIVE (Negative); Urine Color YELLOW (Yellow); Urine Glucose NEGATIVE (Negative); Urine Protein NEGATIVE (Negative); Urine Specific Gravity <=1.005 (1.005-1.030)
[2021-06-24 00:06] LABS: Urine Microscopic Reflex NO UMIC
[2021-06-24] MEDS: ENOXAPARIN 40 MG/0.4 ML SQ SCH (06:44)
[2021-06-24] MEDS: PANTOPRAZOLE 40MG TABLET PO SCH (06:44)
[2021-06-24] MEDS: TRAMADOL HCL 50 MG TAB PO PRN ×2 (06:47→13:11)
[2021-06-24] MEDS: INSULIN -REGULAR HUMAN 50 UNIT/0.5 ML ML SQ SCH ×4 (07:30→20:07)
[2021-06-24] MEDS: AMLODIPINE 5 MG TAB PO SCH (08:00)
[2021-06-24] MEDS: LOSARTAN POTASSIUM 50 MG TABLET PO SCH ×2 (08:00→20:03)
[2021-06-24] MEDS: LIDOCAINE 4% PATCH TOP SCH (08:16)
[2021-06-24] MEDS: SERTRALINE HCL 100 MG TAB PO SCH (08:16)
[2021-06-24] MEDS: FAMOTIDINE 20 MG TAB PO SCH (08:16)
[2021-06-24] MEDS: ARIPiprazole 5 MG TAB PO SCH (08:23)
[2021-06-24] MEDS: GABAPENTIN 300 MG CAP PO SCH ×3 (08:23→20:05)
[2021-06-24] MEDS: METFORMIN HCL 500 MG TAB PO SCH ×2 (08:23→17:29)
[2021-06-24] MEDS: MAGNESIUM OXIDE 400 MG TAB PO SCH ×2 (08:23→20:06)
[2021-06-24] MEDS: CRANBERRY FRUIT EXTRACT 400 MG CAP PO SCH ×2 (08:24→20:05)
[2021-06-24] MEDS: OXYBUTYNIN ER 5 MG TAB PO SCH (08:24)
--- NOTE | 2021-06-24 09:41 | P.RH.PN ---
Estimated Length of Stay: 13 Expected Discharge Date: 07/03/21 Discharge Disposition Plan: Home Family Support: Yes Detention Goal: Mobility, Transfers, Self Care Vital Signs: Last Vital Signs Temp 98.9 F 06/24/21 07:50 Pulse 69 06/24/21 07:50 Resp 16 06/24/21 07:50 BP 112/47 L 06/24/21 07:50 Pulse Ox 95 06/24/21 07:50 Laboratory: Laboratory Last Values WBC 6.80 K/uL (4.3-10.9) 06/23/21 04:27 RBC 3.53 M/uL (3.86-4.86) L 06/23/21 04:27 Hgb 10.4 g/dL (12.0-15.0) L 06/23/21 04:27 Hct 30.7 % (36.0-45.0) L 06/23/21 04:27 MCV 86.9 fL (80-100) 06/23/21 04:27 MCH 29.5 pg (27.0-35.0) 06/23/21 04:27 MCHC 34.0 g/dL (32.0-36.0) 06/23/21 04:27 RDW 14.6 % (12.1-15.2) 06/23/21 04:27 Plt Count 157 K/uL (152-406) 06/23/21 04:27 MPV 9.9 fL (7.6-11.3) 06/23/21 04:27 Neutrophils % 78.5 % (41.7-73.7) H 06/23/21 04:27 Lymphocytes % 9.4 % (15.3-44.8) L 06/23/21 04:27 Monocytes % 9.6 % (3.3-12.3) 06/23/21 04:27 Eosinophils % 2.1 % (0-4.4) 06/23/21 04:27 Basophils % 0.4 % (0-1.3) 06/23/21 04:27 Absolute Neutrophils 5.3 K/uL (1.8-8.0) 06/23/21 04:27 Absolute Lymphocytes 0.6 K/uL (0.7-4.9) L 06/23/21 04:27 Absolute Monocytes 0.7 K/uL (0.1-1.3) 06/23/21 04:27 Absolute Eosinophils 0.1 K/uL (0-0.5) 06/23/21 04:27 Absolute Basophils 0.0 K/uL (0-0.5) 06/23/21 04:27 Sodium 143 mmol/L (136-145) 06/23/21 04:27 Potassium 3.4 mmol/L (3.5-5.1) L 06/24/21 05:09 Chloride 108 mmol/L (98-107) H 06/23/21 04:27 Carbon Dioxide 29 mmol/L (21-32) 06/23/21 04:27 BUN 9 mg/dL (7-18) 06/23/21 04:27 Creatinine 0.47 mg/dL (0.55-1.3) L 06/23/21 04:27 Estimated GFR > 90 mL/min (=/>90) 06/23/21 04:27 Glucose 130 mg/dL (74-106) H 06/23/21 04:27 POC Glucose 123 mg/dL (65-120) H 06/24/21 06:23 Calcium 8.7 mg/dL (8.5-10.1) 06/23/21 04:27 Magnesium 1.8 mg/dL (1.8-2.4) 06/23/21 04:27 Albumin 2.4 g/dL (3.4-5.0) L 06/23/21 04:27 Prealbumin 9.9 mg/dL (20-40) L 06/23/21 04:27 Urine Color Yellow (Yellow) 06/23/21 23:20 Urine Appearance Clear (Clear) 06/23/21 23:20 Urine pH 6.0 (5.0-7.0) 06/23/21 23:20 Ur Specific [place] <=1.005 (1.005-1.030) 06/23/21 23:20 Glucose (UA)(Auto) Negative (Negative) 06/23/21 23:20 Urine Ketones Negative (Negative) 06/23/21 23:20 Urine Blood Negative (Negative) 06/23/21 23:20 Urine Nitrite Negative (Negative) 06/23/21 23:20 Urine Bilirubin Negative (Negative) 06/23/21 23:20 Urine Urobilinogen 1.0 mg/dL (0.2-1.0) 06/23/21 23:20 Ur Leukocyte Esterase Negative (Negative) 06/23/21 23:20 Urine RBC <5 /HPF (NONE SEEN) 06/21/21 15:10 Urine WBC None seen /HPF (<5) 06/21/21 15:10 Ur Squamous Epith Cells JEWELRY STORE MANAGER 06/21/21 15:10 Ur Urothelial Cells <5 /HPF (NONE SEEN) 06/21/21 15:10 Urine Bacteria <20 /HPF (<20) 06/21/21 15:10 Urine Culture Reflexed Not needed 06/21/21 15:10 Urine Total Protein Negative (Negative) 06/23/21 23:20 Weight: 163 lb Wound Present: No Negative Pressure Wound Therapy Present: No Physician Update: Labs reviewed and are stable. She is walking 51' with min assistance. Transfers with min assistance with TDWB. Independent with wheelchair mobility. With OT she is moderate assistance with lower body dressing, bathing lower body. Set up assistance other grooming. She has moderate pain in the left hip. Moderate assistance with toileting. Summary: Patient's care plan and correction goals have been reviewed and revised as necessary. Please see the Rehabilitation Signature page for all necessary signatures.
[2021-06-24] MEDS: CIPROFLOXACIN HCL 250 MG TAB PO SCH (20:03)
[2021-06-24] MEDS: DOCUSATE NA/SENNA CONC 1 TAB PO SCH (20:04)
[2021-06-24] MEDS: GLUCERNA SHAKE 237 ML CAN PO SCH (20:09)
[2021-06-24] MEDS: ROPINIROLE HCL 1 MG TAB PO SCH (20:40)
[2021-06-25] MEDS: TRAMADOL HCL 50 MG TAB PO PRN ×3 (04:19→17:05)
[2021-06-25] MEDS: PANTOPRAZOLE 40MG TABLET PO SCH (06:30)
[2021-06-25] MEDS: INSULIN -REGULAR HUMAN 50 UNIT/0.5 ML ML SQ SCH ×4 (07:30→21:00)
[2021-06-25] MEDS: GLUCERNA SHAKE 237 ML CAN PO SCH ×2 (08:00→21:01)
[2021-06-25] MEDS: FAMOTIDINE 20 MG TAB PO SCH (08:00)
[2021-06-25] MEDS: CRANBERRY FRUIT EXTRACT 400 MG CAP PO SCH ×2 (08:00→21:01)
[2021-06-25] MEDS: AMLODIPINE 5 MG TAB PO SCH (08:00)
[2021-06-25] MEDS: ARIPiprazole 5 MG TAB PO SCH (08:00)
[2021-06-25] MEDS: MAGNESIUM OXIDE 400 MG TAB PO SCH ×2 (08:00→21:01)
[2021-06-25] MEDS: LOSARTAN POTASSIUM 50 MG TABLET PO SCH ×2 (08:00→21:00)
[2021-06-25] MEDS: GABAPENTIN 300 MG CAP PO SCH ×3 (09:00→21:01)
[2021-06-25] MEDS: LIDOCAINE 4% PATCH TOP SCH (10:46)
[2021-06-25] MEDS: ENOXAPARIN 40 MG/0.4 ML SQ SCH (10:46)
[2021-06-25] MEDS: METFORMIN HCL 500 MG TAB PO SCH ×2 (10:47→17:05)
[2021-06-25] MEDS: OXYBUTYNIN ER 5 MG TAB PO SCH (10:47)
[2021-06-25] MEDS: SERTRALINE HCL 100 MG TAB PO SCH (10:48)
[2021-06-25] MEDS: CIPROFLOXACIN HCL 250 MG TAB PO SCH ×2 (10:48→21:08)
--- NOTE | 2021-06-25 14:15 | PN ---
Date of Progress Note: 06/23/2021 Subjective: The patient was seen for followup in the morning. No new complaints problems reported b y her. Lying in bed, not in any distress. Objective: Vital Signs: Reviewed. HEENT: Examination unremarkable. Lungs: Clear to auscultation. Heart: Sounds normal. Abdomen: Soft. Bowel sounds normal. No guarding, rigidity, tenderness, distention. Extremity: No leg edema. Laboratory Data: White count 6.8, hemoglobin 10.4, platelets 157. Sodium 143, potassium 3.4, chlori de 108, bicarb 29, BUN 9, creatinine 0.47, glucose 130. Impression: 1.Anemia due to acute blood loss. 2.Hypokalemia. 3.Hypertension. 4.Depression. 5.Left hip fracture. Plan: We will go ahead and replace potassium per order. Continue current medication. Continue curr ent pain medications, antihypertensive and antidepressant medication. The patient will receive physi meli therapy under guidance of Dr. Purvis. Continue current DVT prophylaxis. YOLANDA/MODL Voice ID: [id number] Report ID: [id number]
--- NOTE | 2021-06-25 14:33 | PN ---
Date of Progress Note: 06/25/2021 Subjective: The patient was seen this morning for followup. No new complaints, problems reported by her. She was sitting in the chair, eating her lunch today. Objective: Vital Signs: Reviewed. HEENT: Unremarkable. Lungs: Clear to auscultation. No wheezing. No rales. Heart: Sounds normal. Abdomen: Soft. Bowel sounds normal. No guarding, rigidity, tenderness, distention. Extremities: No leg edema. Laboratory Data: There were no new labs today. Fingerstick blood sugar readings reviewed. Urine culture result reviewed. Impression: 1. Left hip fracture. 2. Hypertension. 3. Depression. 4. Anemia due to acute blood loss. 5. Hypokalemia. 6. Urinary tract infection. Plan: We will go ahead and repeat blood work tomorrow morning including electrolytes and magnesium. We will go ahead and continue current medications. Continue current antihypertensive and antidepressant medication. Her pain from the hip fracture and surgery seems to be improving well as she reports. Denies any constipation problem. We will continue current DVT prophylaxis. Start Cipro for UTI. YOLANDA/MODL Voice ID: [id number] Report ID: [id number] YON
[2021-06-25] MEDS: DOCUSATE NA/SENNA CONC 1 TAB PO SCH (21:00)
[2021-06-25] MEDS: ROPINIROLE HCL 1 MG TAB PO SCH (21:01)
[2021-06-26 06:17] LABS: Absolute Lymphocytes (CBC) 1.3 K/uL (0.7-4.9); Hematocrit 34.3 % (36.0-45.0); Lymphocytes % 13.9 % (15.3-44.8); MPV 9.8 fL (7.6-11.3); RBC Red Blood Cell Count 3.84 M/uL (3.86-4.86)
[2021-06-26 06:34] LABS: Magnesium 1.8 mg/dL (1.8-2.4); Potassium 3.6 mmol/L (3.5-5.1)
[2021-06-26] MEDS: ENOXAPARIN 40 MG/0.4 ML SQ SCH (06:42)
[2021-06-26] MEDS: PANTOPRAZOLE 40MG TABLET PO SCH (06:42)
[2021-06-26] MEDS: INSULIN -REGULAR HUMAN 50 UNIT/0.5 ML ML SQ SCH ×3 (07:30→16:25)
[2021-06-26] MEDS: LIDOCAINE 4% PATCH TOP SCH (09:11)
[2021-06-26] MEDS: CRANBERRY FRUIT EXTRACT 400 MG CAP PO SCH ×2 (09:11→20:35)
[2021-06-26] MEDS: FAMOTIDINE 20 MG TAB PO SCH (09:11)
[2021-06-26] MEDS: AMLODIPINE 5 MG TAB PO SCH (09:11)
[2021-06-26] MEDS: OXYBUTYNIN ER 5 MG TAB PO SCH (09:12)
[2021-06-26] MEDS: GABAPENTIN 300 MG CAP PO SCH ×3 (09:12→20:35)
[2021-06-26] MEDS: METFORMIN HCL 500 MG TAB PO SCH ×2 (09:12→16:51)
[2021-06-26] MEDS: LOSARTAN POTASSIUM 50 MG TABLET PO SCH ×2 (09:12→20:35)
[2021-06-26] MEDS: SERTRALINE HCL 100 MG TAB PO SCH (09:12)
[2021-06-26] MEDS: ARIPiprazole 5 MG TAB PO SCH (09:12)
[2021-06-26] MEDS: GLUCERNA SHAKE 237 ML CAN PO SCH ×2 (09:13→20:35)
[2021-06-26] MEDS: MAGNESIUM OXIDE 400 MG TAB PO SCH ×2 (09:13→20:35)
[2021-06-26] MEDS: TRAMADOL HCL 50 MG TAB PO PRN (09:13)
[2021-06-26] MEDS: CIPROFLOXACIN HCL 250 MG TAB PO SCH ×2 (09:14→20:40)
--- NOTE | 2021-06-26 10:45 | PN ---
Date of Progress Note: 06/26/2021 Subjective: The patient was seen this morning for followup. She was lying in bed, not in distress. No new complaints or problems reported by her. Objective: Vital Signs: Reviewed. HEENT: Examination unremarkable. Lungs: Clear to auscultation. Heart: Sounds normal. Abdomen: Soft. Bowel sounds normal. No guarding, rigidity, tenderness, or distention. Extremities: No leg edema. Laboratory Data: White count 9.1, hemoglobin 11, platelets 268. Sodium 141, potassium 3.6, chloride 105, bicarb 28, BUN 10, creatinine 0.67, glucose 137, magnesium 1.8. Impression: 1.Urinary tract infection. 2.Hypokalemia, resolved. 3.Anemia due to acute blood loss. 4.Left hip fracture. 5.Hypertension. Plan: We will continue Cipro, which was started yesterday. The patient reports that prior to starti ng Cipro for a couple of days or so she noted that her urine had a strong order and cloudy looking, b ut that has improved since we started her on Cipro. She denies any dysuria or hematuria. We will co ntinue current antihypertensive medication, DVT prophylaxis and current pain medications. I will see her tomorrow for followup. YOLANDA/MODL Voice ID: [id number] Report ID: [id number]
[2021-06-26] MEDS: ROPINIROLE HCL 1 MG TAB PO SCH (20:35)
[2021-06-26] MEDS: DOCUSATE NA/SENNA CONC 1 TAB PO SCH (20:40)
[2021-06-27] MEDS: LIDOCAINE 4% PATCH TOP SCH (06:44)
[2021-06-27] MEDS: ENOXAPARIN 40 MG/0.4 ML SQ SCH (06:45)
[2021-06-27] MEDS: PANTOPRAZOLE 40MG TABLET PO SCH (06:46)
[2021-06-27] MEDS: ARIPiprazole 5 MG TAB PO SCH (06:46)
[2021-06-27] MEDS: GABAPENTIN 300 MG CAP PO SCH ×3 (06:46→19:15)
[2021-06-27] MEDS: CRANBERRY FRUIT EXTRACT 400 MG CAP PO SCH ×2 (06:46→19:14)
[2021-06-27] MEDS: METFORMIN HCL 500 MG TAB PO SCH ×2 (06:47→17:49)
[2021-06-27] MEDS: LOSARTAN POTASSIUM 50 MG TABLET PO SCH ×2 (06:47→19:15)
[2021-06-27] MEDS: AMLODIPINE 5 MG TAB PO SCH (06:48)
[2021-06-27] MEDS: FAMOTIDINE 20 MG TAB PO SCH (06:48)
[2021-06-27] MEDS: SERTRALINE HCL 100 MG TAB PO SCH (06:49)
[2021-06-27] MEDS: TRAMADOL HCL 50 MG TAB PO PRN ×2 (06:49→14:46)
[2021-06-27] MEDS: OXYBUTYNIN ER 5 MG TAB PO SCH (06:50)
[2021-06-27] MEDS: GLUCERNA SHAKE 237 ML CAN PO SCH ×2 (06:53→19:16)
[2021-06-27] MEDS: MAGNESIUM OXIDE 400 MG TAB PO SCH ×2 (06:56→19:15)
[2021-06-27] MEDS: INSULIN -REGULAR HUMAN 50 UNIT/0.5 ML ML SQ SCH ×2 (07:30→16:30)
[2021-06-27] MEDS: CIPROFLOXACIN HCL 250 MG TAB PO SCH ×2 (08:24→19:14)
[2021-06-27] MEDS: ROPINIROLE HCL 1 MG TAB PO SCH (19:14)
[2021-06-27] MEDS: DOCUSATE NA/SENNA CONC 1 TAB PO SCH (19:15)
[2021-06-28] MEDS: ENOXAPARIN 40 MG/0.4 ML SQ SCH (06:34)
[2021-06-28] MEDS: PANTOPRAZOLE 40MG TABLET PO SCH (06:34)
[2021-06-28] MEDS: TRAMADOL HCL 50 MG TAB PO PRN ×2 (06:40→12:19)
--- NOTE | 2021-06-28 06:57 | PN ---
Date of Progress Note: 06/27/2021 The patient was seen this morning for followup. No new complaints or problems reported by patient. She was lying in bed not in distress. Objective: Vital Signs: Reviewed. HEENT: Unremarkable. Lungs: Clear to auscultation. Heart: Sounds normal. Abdomen: Soft, bowel sounds normal. No guarding, rigidity, tenderness, or distention. Extremities: No leg edema. Impression: 1.Left hip fracture. 2.Anemia due to acute blood loss. 3.Hypertension. 4.Urinary tract infection. 5.Depression. Plan: We will continue current medication. Continue current DVT prophylaxis, antihypertensive medic ation, antibiotic which is Cipro as well as antidepressant medication. Continue physical therapy und er guidance of Dr. Purvis. YOLANDA/MODL Voice ID: [id number] Report ID: [id number]
[2021-06-28] MEDS: INSULIN -REGULAR HUMAN 50 UNIT/0.5 ML ML SQ SCH ×2 (07:30→16:30)
[2021-06-28] MEDS: CRANBERRY FRUIT EXTRACT 400 MG CAP PO SCH ×2 (08:29→20:08)
[2021-06-28] MEDS: METFORMIN HCL 500 MG TAB PO SCH ×2 (08:29→17:01)
[2021-06-28] MEDS: GABAPENTIN 300 MG CAP PO SCH ×3 (08:29→20:08)
[2021-06-28] MEDS: OXYBUTYNIN ER 5 MG TAB PO SCH (08:29)
[2021-06-28] MEDS: AMLODIPINE 5 MG TAB PO SCH (08:29)
[2021-06-28] MEDS: ARIPiprazole 5 MG TAB PO SCH (08:30)
[2021-06-28] MEDS: MAGNESIUM OXIDE 400 MG TAB PO SCH ×2 (08:30→20:08)
[2021-06-28] MEDS: LOSARTAN POTASSIUM 50 MG TABLET PO SCH ×2 (08:30→20:08)
[2021-06-28] MEDS: LIDOCAINE 4% PATCH TOP SCH (08:30)
[2021-06-28] MEDS: FAMOTIDINE 20 MG TAB PO SCH (08:30)
[2021-06-28] MEDS: CIPROFLOXACIN HCL 250 MG TAB PO SCH ×2 (08:31→20:09)
[2021-06-28] MEDS: SERTRALINE HCL 100 MG TAB PO SCH (09:51)
[2021-06-28] MEDS: GLUCERNA SHAKE 237 ML CAN PO SCH ×2 (09:51→20:09)
[2021-06-28] MEDS: DOCUSATE NA/SENNA CONC 1 TAB PO SCH (20:07)
[2021-06-28] MEDS: ROPINIROLE HCL 1 MG TAB PO SCH (20:08)
--- NOTE | 2021-06-28 21:48 | PN ---
Date of Progress Note: 06/28/2021 Subjective: The patient was seen this morning for followup. No new complaints, problems reported by her. Objective: General: Lying in bed, not in any distress. Vital Signs: Reviewed. HEENT: Unremarkable. Lungs: Clear to auscultation. Heart: Sounds normal. Abdomen: Soft. Bowel sounds normal. No guarding, rigidity, tenderness, distention. Extremities: No leg edema. Impression: 1.Urinary tract infection. 2.Overactive bladder. 3.Hypertension. 4.Depression. 5.Left hip fracture. 6.Anemia due to acute blood loss. Plan: We will go ahead and continue oxybutynin 15 mg daily and the dose was increased from 10 mg to 15 mg yesterday because of her overactive bladder. We will continue Cipro for urinary tract infectio n. Continue DVT prophylaxis using Lovenox. Continue physical therapy under guidance of Dr. Purvis and I will see her tomorrow for followup. YOLANDA/MODL Voice ID: [id number] Report ID: [id number]
[2021-06-29] MEDS: SERTRALINE HCL 100 MG TAB PO SCH (06:35)
[2021-06-29] MEDS: METFORMIN HCL 500 MG TAB PO SCH ×2 (06:35→16:56)
[2021-06-29] MEDS: MAGNESIUM OXIDE 400 MG TAB PO SCH ×2 (06:35→19:50)
[2021-06-29] MEDS: FAMOTIDINE 20 MG TAB PO SCH (06:36)
[2021-06-29] MEDS: OXYBUTYNIN ER 5 MG TAB PO SCH (06:36)
[2021-06-29] MEDS: AMLODIPINE 5 MG TAB PO SCH (06:37)
[2021-06-29] MEDS: LOSARTAN POTASSIUM 50 MG TABLET PO SCH ×2 (06:37→19:50)
[2021-06-29] MEDS: GABAPENTIN 300 MG CAP PO SCH ×3 (06:37→20:05)
[2021-06-29] MEDS: GLUCERNA SHAKE 237 ML CAN PO SCH ×2 (06:38→19:50)
[2021-06-29] MEDS: CIPROFLOXACIN HCL 250 MG TAB PO SCH ×2 (06:38→19:49)
[2021-06-29] MEDS: ARIPiprazole 5 MG TAB PO SCH (06:38)
[2021-06-29] MEDS: CRANBERRY FRUIT EXTRACT 400 MG CAP PO SCH ×2 (06:38→19:50)
[2021-06-29] MEDS: ENOXAPARIN 40 MG/0.4 ML SQ SCH (06:38)
[2021-06-29] MEDS: PANTOPRAZOLE 40MG TABLET PO SCH (06:39)
[2021-06-29] MEDS: LIDOCAINE 4% PATCH TOP SCH (06:40)
[2021-06-29] MEDS: TRAMADOL HCL 50 MG TAB PO PRN ×2 (06:43→13:08)
[2021-06-29] MEDS: INSULIN -REGULAR HUMAN 50 UNIT/0.5 ML ML SQ SCH ×2 (07:30→16:30)
[2021-06-29] MEDS ORDERED: MAGNESIUM HYDROXIDE 8% 30 ML PO ONE (07:30)
[2021-06-29] MEDS: ROPINIROLE HCL 1 MG TAB PO SCH (20:05)
[2021-06-29] MEDS: DOCUSATE NA/SENNA CONC 1 TAB PO SCH (20:05)
--- NOTE | 2021-06-29 22:09 | PN ---
Date of Progress Note: 06/29/2021 Subjective: The patient was seen for followup this morning. She was lying in bed, not in distress, was complaining of some constipation as she has not had a bowel movement in last 2 to 3 days. No kathy sea or vomiting. No abdominal pain. Objective: Vital Signs: Reviewed. HEENT: Unremarkable. Lungs: Clear to auscultation. Heart: Sounds normal. Abdomen: Soft. Bowel sounds normal. No guarding, rigidity, tenderness, or distention. Extremities: No leg edema. Impression: 1.Constipation. 2.Left hip fracture. 3.Hypertension. 4.Depression. 5.Anemia due to acute blood loss. Plan: We will go ahead and continue current DVT prophylaxis, milk of magnesia 30 cc p.o. x1 dose was ordered to be given today. Continue Senokot-S per order. Continue current antihypertensive medicat ions per order. We will repeat blood work tomorrow morning and starting tomorrow, hospitalist will t johanna over this patient's care in my absence until I return back to town Sunday. YOLANDA/MODL Voice ID: [id number] Report ID: [id number]
[2021-06-30 04:50] LABS: Hematocrit 31.5 % (36.0-45.0); Lymphocytes % 14.2 % (15.3-44.8); MPV 9.3 fL (7.6-11.3); RBC Red Blood Cell Count 3.56 M/uL (3.86-4.86)
[2021-06-30 05:13] LABS: Magnesium 2.1 mg/dL (1.8-2.4); Potassium 3.8 mmol/L (3.5-5.1)
[2021-06-30] MEDS: PANTOPRAZOLE 40MG TABLET PO SCH (06:34)
[2021-06-30] MEDS: TRAMADOL HCL 50 MG TAB PO PRN ×2 (06:34→16:34)
[2021-06-30] MEDS: ENOXAPARIN 40 MG/0.4 ML SQ SCH (06:34)
[2021-06-30] MEDS: LIDOCAINE 4% PATCH TOP SCH (06:34)
[2021-06-30] MEDS: INSULIN -REGULAR HUMAN 50 UNIT/0.5 ML ML SQ SCH ×2 (07:07→16:30)
[2021-06-30] MEDS: AMLODIPINE 5 MG TAB PO SCH (07:37)
[2021-06-30] MEDS: LOSARTAN POTASSIUM 50 MG TABLET PO SCH ×2 (07:37→20:44)
[2021-06-30] MEDS: OXYBUTYNIN ER 5 MG TAB PO SCH (07:37)
[2021-06-30] MEDS: METFORMIN HCL 500 MG TAB PO SCH ×2 (07:37→16:34)
[2021-06-30] MEDS: FAMOTIDINE 20 MG TAB PO SCH (07:37)
[2021-06-30] MEDS: ARIPiprazole 5 MG TAB PO SCH (07:37)
[2021-06-30] MEDS: GABAPENTIN 300 MG CAP PO SCH ×3 (07:37→20:44)
[2021-06-30] MEDS: SERTRALINE HCL 100 MG TAB PO SCH (07:38)
[2021-06-30] MEDS: MAGNESIUM OXIDE 400 MG TAB PO SCH ×2 (07:38→20:44)
[2021-06-30] MEDS: CRANBERRY FRUIT EXTRACT 400 MG CAP PO SCH ×2 (07:38→20:43)
[2021-06-30] MEDS: CIPROFLOXACIN HCL 250 MG TAB PO SCH ×3 (08:14→20:43)
[2021-06-30] MEDS: MAGNESIUM HYDROXIDE 8% 30 ML PO PRN (08:14)
[2021-06-30] MEDS: GLUCERNA SHAKE 237 ML CAN PO SCH ×2 (08:15→20:45)
[2021-06-30] MEDS: ROPINIROLE HCL 1 MG TAB PO SCH (20:44)
[2021-06-30] MEDS: DOCUSATE NA/SENNA CONC 1 TAB PO SCH (20:45)
[2021-07-01] MEDS: TRAMADOL HCL 50 MG TAB PO PRN ×2 (05:43→16:27)
[2021-07-01] MEDS: INSULIN -REGULAR HUMAN 50 UNIT/0.5 ML ML SQ SCH ×2 (07:30→16:30)
[2021-07-01] MEDS: GLUCERNA SHAKE 237 ML CAN PO SCH ×2 (08:00→19:49)
[2021-07-01] MEDS: LIDOCAINE 4% PATCH TOP SCH (08:27)
[2021-07-01] MEDS: ENOXAPARIN 40 MG/0.4 ML SQ SCH (08:28)
[2021-07-01] MEDS: LOSARTAN POTASSIUM 50 MG TABLET PO SCH ×2 (08:30→19:48)
[2021-07-01] MEDS: CIPROFLOXACIN HCL 250 MG TAB PO SCH ×2 (08:30→19:47)
[2021-07-01] MEDS: FAMOTIDINE 20 MG TAB PO SCH (08:32)
[2021-07-01] MEDS: CRANBERRY FRUIT EXTRACT 400 MG CAP PO SCH ×2 (08:32→19:48)
[2021-07-01] MEDS: AMLODIPINE 5 MG TAB PO SCH (08:32)
[2021-07-01] MEDS: PANTOPRAZOLE 40MG TABLET PO SCH (08:33)
[2021-07-01] MEDS: OXYBUTYNIN ER 5 MG TAB PO SCH (08:34)
[2021-07-01] MEDS: MAGNESIUM OXIDE 400 MG TAB PO SCH ×2 (08:34→19:48)
[2021-07-01] MEDS: METFORMIN HCL 500 MG TAB PO SCH ×2 (08:34→16:27)
[2021-07-01] MEDS: GABAPENTIN 300 MG CAP PO SCH ×3 (08:34→19:48)
[2021-07-01] MEDS: SERTRALINE HCL 100 MG TAB PO SCH (08:35)
[2021-07-01] MEDS: ARIPiprazole 5 MG TAB PO SCH (08:35)
--- NOTE | 2021-07-01 11:03 | P.RH.PN ---
Estimated Length of Stay: 14 Expected Discharge Date: 07/05/21 Discharge Disposition Plan: Home Family Support: Yes Group Home Goal: Mobility Vital Signs: Last Vital Signs Temp 97 F 07/01/21 08:13 Pulse 66 07/01/21 08:32 Resp 16 07/01/21 08:13 BP 133/58 L 07/01/21 08:32 Pulse Ox 94 07/01/21 08:13 Laboratory: Laboratory Last Values WBC 6.80 K/uL (4.3-10.9) D 06/30/21 04:26 RBC 3.56 M/uL (3.86-4.86) L 06/30/21 04:26 Hgb 10.4 g/dL (12.0-15.0) L 06/30/21 04:26 Hct 31.5 % (36.0-45.0) L 06/30/21 04:26 MCV 88.5 fL (80-100) 06/30/21 04:26 MCH 29.1 pg (27.0-35.0) 06/30/21 04:26 MCHC 32.9 g/dL (32.0-36.0) 06/30/21 04:26 RDW 14.8 % (12.1-15.2) 06/30/21 04:26 Plt Count 310 K/uL (152-406) 06/30/21 04:26 MPV 9.3 fL (7.6-11.3) 06/30/21 04:26 Neutrophils % 74.5 % (41.7-73.7) H 06/30/21 04:26 Lymphocytes % 14.2 % (15.3-44.8) L 06/30/21 04:26 Monocytes % 8.4 % (3.3-12.3) 06/30/21 04:26 Eosinophils % 2.5 % (0-4.4) 06/30/21 04:26 Basophils % 0.4 % (0-1.3) 06/30/21 04:26 Absolute Neutrophils 5.1 K/uL (1.8-8.0) 06/30/21 04:26 Absolute Lymphocytes 1.0 K/uL (0.7-4.9) 06/30/21 04:26 Absolute Monocytes 0.6 K/uL (0.1-1.3) 06/30/21 04:26 Absolute Eosinophils 0.2 K/uL (0-0.5) 06/30/21 04:26 Absolute Basophils 0.0 K/uL (0-0.5) 06/30/21 04:26 Sodium 141 mmol/L (136-145) 06/30/21 04:26 Potassium 3.8 mmol/L (3.5-5.1) 06/30/21 04:26 Chloride 105 mmol/L (98-107) 06/30/21 04:26 Carbon Dioxide 30 mmol/L (21-32) 06/30/21 04:26 BUN 14 mg/dL (7-18) 06/30/21 04:26 Creatinine 0.66 mg/dL (0.55-1.3) 06/30/21 04:26 Estimated GFR 88 mL/min (=/>90) L 06/30/21 04:26 Glucose 122 mg/dL (74-106) H 06/30/21 04:26 POC Glucose 122 mg/dL (65-120) H 07/01/21 07:04 Calcium 9.1 mg/dL (8.5-10.1) 06/30/21 04:26 Magnesium 2.1 mg/dL (1.8-2.4) 06/30/21 04:26 Albumin 2.4 g/dL (3.4-5.0) L 06/23/21 04:27 Prealbumin 9.9 mg/dL (20-40) L 06/23/21 04:27 Urine Color Yellow (Yellow) 06/23/21 23:20 Urine Appearance Clear (Clear) 06/23/21 23:20 Urine pH 6.0 (5.0-7.0) 06/23/21 23:20 Ur Specific [place] <=1.005 (1.005-1.030) 06/23/21 23:20 Glucose (UA)(Auto) Negative (Negative) 06/23/21 23:20 Urine Ketones Negative (Negative) 06/23/21 23:20 Urine Blood Negative (Negative) 06/23/21 23:20 Urine Nitrite Negative (Negative) 06/23/21 23:20 Urine Bilirubin Negative (Negative) 06/23/21 23:20 Urine Urobilinogen 1.0 mg/dL (0.2-1.0) 06/23/21 23:20 Ur Leukocyte Esterase Negative (Negative) 06/23/21 23:20 Urine RBC <5 /HPF (NONE SEEN) 06/21/21 15:10 Urine WBC None seen /HPF (<5) 06/21/21 15:10 Ur Squamous Epith Cells BOTTOM PAINTER 06/21/21 15:10 Ur Urothelial Cells <5 /HPF (NONE SEEN) 06/21/21 15:10 Urine Bacteria <20 /HPF (<20) 06/21/21 15:10 Urine Culture Reflexed Not needed 06/21/21 15:10 Urine Total Protein Negative (Negative) 06/23/21 23:20 SARS-CoV-2 Rap RNA(RT-PCR) Negative (NEGATIVE) 06/25/21 21:12 Weight: 157 lb 6.4 oz Wound Present: No Closed Surgical Incision Present: No Negative Pressure Wound Therapy Present: No Physician Update: Patient doing well with no new complaints; doing well; therapy proceeding adequately. 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 Please see the Rehabilitation Signature page for all necessary signatures.
[2021-07-01] MEDS: ROPINIROLE HCL 1 MG TAB PO SCH (19:48)
[2021-07-01] MEDS: DOCUSATE NA/SENNA CONC 1 TAB PO SCH (19:48)
[2021-07-02] MEDS: INSULIN -REGULAR HUMAN 50 UNIT/0.5 ML ML SQ SCH ×2 (07:30→16:30)
[2021-07-02] MEDS: PANTOPRAZOLE 40MG TABLET PO SCH (07:30)
[2021-07-02] MEDS: ENOXAPARIN 40 MG/0.4 ML SQ SCH (07:31)
[2021-07-02] MEDS: LIDOCAINE 4% PATCH TOP SCH (08:00)
[2021-07-02] MEDS: SERTRALINE HCL 100 MG TAB PO SCH (08:20)
[2021-07-02] MEDS: FAMOTIDINE 20 MG TAB PO SCH (08:20)
[2021-07-02] MEDS: OXYBUTYNIN ER 5 MG TAB PO SCH (08:20)
[2021-07-02] MEDS: MAGNESIUM OXIDE 400 MG TAB PO SCH ×2 (08:20→20:17)
[2021-07-02] MEDS: CRANBERRY FRUIT EXTRACT 400 MG CAP PO SCH ×2 (08:20→20:16)
[2021-07-02] MEDS: METFORMIN HCL 500 MG TAB PO SCH ×2 (08:21→16:44)
[2021-07-02] MEDS: TRAMADOL HCL 50 MG TAB PO PRN ×2 (08:21→20:20)
[2021-07-02] MEDS: AMLODIPINE 5 MG TAB PO SCH (08:21)
[2021-07-02] MEDS: LOSARTAN POTASSIUM 50 MG TABLET PO SCH ×2 (08:21→20:17)
[2021-07-02] MEDS: ARIPiprazole 5 MG TAB PO SCH (08:21)
[2021-07-02] MEDS: GABAPENTIN 300 MG CAP PO SCH ×3 (08:21→20:17)
[2021-07-02] MEDS: CIPROFLOXACIN HCL 250 MG TAB PO SCH ×2 (10:05→20:18)
[2021-07-02] MEDS: GLUCERNA SHAKE 237 ML CAN PO SCH ×2 (10:06→20:00)
[2021-07-02] MEDS: MAGNESIUM HYDROXIDE 8% 30 ML PO PRN (10:07)
[2021-07-02] MEDS: ROPINIROLE HCL 1 MG TAB PO SCH (20:17)
[2021-07-02] MEDS: DOCUSATE NA/SENNA CONC 1 TAB PO SCH (20:17)
[2021-07-03] MEDS: PANTOPRAZOLE 40MG TABLET PO SCH (07:19)
[2021-07-03] MEDS: ENOXAPARIN 40 MG/0.4 ML SQ SCH (07:19)
[2021-07-03] MEDS: TRAMADOL HCL 50 MG TAB PO PRN (07:21)
[2021-07-03] MEDS: INSULIN -REGULAR HUMAN 50 UNIT/0.5 ML ML SQ SCH ×2 (07:24→16:30)
[2021-07-03] MEDS: CRANBERRY FRUIT EXTRACT 400 MG CAP PO SCH ×2 (07:43→19:46)
[2021-07-03] MEDS: FAMOTIDINE 20 MG TAB PO SCH (07:44)
[2021-07-03] MEDS: OXYBUTYNIN ER 5 MG TAB PO SCH (07:44)
[2021-07-03] MEDS: GABAPENTIN 300 MG CAP PO SCH ×3 (07:44→19:46)
[2021-07-03] MEDS: METFORMIN HCL 500 MG TAB PO SCH ×2 (07:44→16:59)
[2021-07-03] MEDS: ARIPiprazole 5 MG TAB PO SCH (07:44)
[2021-07-03] MEDS: MAGNESIUM OXIDE 400 MG TAB PO SCH ×2 (07:44→19:45)
[2021-07-03] MEDS: LOSARTAN POTASSIUM 50 MG TABLET PO SCH ×2 (07:45→19:46)
[2021-07-03] MEDS: SERTRALINE HCL 100 MG TAB PO SCH (07:45)
[2021-07-03] MEDS: AMLODIPINE 5 MG TAB PO SCH (07:45)
[2021-07-03] MEDS: LIDOCAINE 4% PATCH TOP SCH (08:17)
[2021-07-03] MEDS: CIPROFLOXACIN HCL 250 MG TAB PO SCH ×2 (10:02→19:43)
[2021-07-03] MEDS: GLUCERNA SHAKE 237 ML CAN PO SCH ×2 (10:02→19:46)
[2021-07-03] MEDS: ROPINIROLE HCL 1 MG TAB PO SCH (19:45)
[2021-07-03] MEDS: DOCUSATE NA/SENNA CONC 1 TAB PO SCH (19:46)
[2021-07-04] MEDS: ENOXAPARIN 40 MG/0.4 ML SQ SCH (06:34)
[2021-07-04] MEDS: PANTOPRAZOLE 40MG TABLET PO SCH (06:34)
[2021-07-04] MEDS: INSULIN -REGULAR HUMAN 50 UNIT/0.5 ML ML SQ SCH ×2 (07:02→16:30)
[2021-07-04] MEDS: LIDOCAINE 4% PATCH TOP SCH (08:29)
[2021-07-04] MEDS: SERTRALINE HCL 100 MG TAB PO SCH (08:29)
[2021-07-04] MEDS: FAMOTIDINE 20 MG TAB PO SCH (08:30)
[2021-07-04] MEDS: METFORMIN HCL 500 MG TAB PO SCH ×2 (08:30→17:29)
[2021-07-04] MEDS: ARIPiprazole 5 MG TAB PO SCH (08:30)
[2021-07-04] MEDS: MAGNESIUM OXIDE 400 MG TAB PO SCH ×2 (08:30→20:13)
[2021-07-04] MEDS: GABAPENTIN 300 MG CAP PO SCH ×3 (08:30→20:12)
[2021-07-04] MEDS: CRANBERRY FRUIT EXTRACT 400 MG CAP PO SCH ×2 (08:30→20:12)
[2021-07-04] MEDS: OXYBUTYNIN ER 5 MG TAB PO SCH (08:30)
[2021-07-04] MEDS: LOSARTAN POTASSIUM 50 MG TABLET PO SCH ×2 (08:30→20:13)
[2021-07-04] MEDS: AMLODIPINE 5 MG TAB PO SCH (08:31)
[2021-07-04] MEDS: TRAMADOL HCL 50 MG TAB PO PRN (08:31)
[2021-07-04] MEDS: CIPROFLOXACIN HCL 250 MG TAB PO SCH ×2 (10:26→20:12)
[2021-07-04] MEDS: GLUCERNA SHAKE 237 ML CAN PO SCH ×2 (10:26→20:00)
--- NOTE | 2021-07-04 19:23 | R.PN ---
PROGRESS NOTES ENCOUNTER DATE AND TIME: 07/04/2021 19:20 (SUPPLY REQUIREMENTS OFFICER) NAME JOSUE GONZALEZ DATE OF : 1950 DATE OF ADMISSION: 06/21/2021 14:50 (SUPPLY REQUIREMENTS OFFICER) Left Hip FractureCHIEF COMPLAINT: Left hip fracture SUBJECTIVE: Pt denied any depression. Pt denied any Shortness of Breath. WBC 6.8, Hgb 10.4, K+ 3.4, prealbumin 9.9. Ambulated 170'' with modified independence using a rolling walker and TDWB. Self-propelled a wheelcha ir 500' with modified independence. VITAL SIGNS Temperature: 97.4 F SBP/DBP: 136/71 Pulse: 69 Resp: 16 MEDICATION ALLERGIES: No Known Drug Allergies (NKDA) ENVIRONMENTAL ALLERGIES: - Substance Allergies None Known - Other Allergies None Known NURSING: - Shower allowing shower - Skin care per protocol PRECAUTIONS: - Weight Bearing Precaution TTWB left LE ACTIVITIES OOB only with supervision THERAPIES: - Dietary and Nutrition Adequate Nutrition. Nutritional Education. Nutritional Supplements. - Occupational Therapy Cognitive Retraining. Evaluate and Treat. ADL Training. Transfer Training. Adaptive Equipment. UE Str engthening. Household Tasks. Patient/Family Education. Visual Perceptual Training. - Speech Therapy Cognitive Training. Expressive Language Skills. Memory Strategies. Receptive Language Skills. Speech Intelligibility Training. - Physical Therapy Evaluate and Treat. Gait Training. Balance Training. Transfer Training. LE Strengthening. Mobility Tr aining. Safety Awareness. Patient/Family Education. PHYSICAL EXAM - Gen Alert and awake Lying in bed No apparent distress Oriented to: person, time, and place - Skin No breakdown No abnormalities - Eyes No abnormalities - ENMT No abnormalities - Neck No abnormalities - CVS RRR - Chest No abnormalities - Abd Soft - GI + bowel sound Deferred - No abnormalities - Ext Mild left lower extremity edema. - MSK 4+/5 weakness in left lower extremity - Neuro 4/5 strength left lower extremity. ASSESSMENT: Pt. is a 71 yo Right-handed female.On 06/19/2021 she was admitted to [facility] with diagnosis Left Hip Fracture.Her impairment category is Orthopaedic Disorders 08 - Unilateral Hip Fr acture (08.11).Pre-morbidly, Pt. was independent/mod-I in Locomotion, Social Cognition, Safety Awaren ess, Balance, and Transfers Control; and she had good Sphincter Control, Self-Care, Communication, an d Endurance.Currently, she has deficits of Locomotion, Safety Awareness, Social Cognition, Balance, T ransfers Control, Sphincter Control, Self-Care, and Endurance.Pt. is now referred to [facility] for acute in-patient rehabilitation in order to maximize patient's functional indep endence in activities of daily living, strength, ROM, and mobility.- Rehab Goal Patient has realistic goal of being discharged at assistance level 7-Ind to reside at Home with Pt s elf. MDM/PLAN: - Physical Therapy Decreased range of motion - to improve, our physical therapists will perform initial evaluation of p t's status upon admission and devise an individualized program for increasing patient's Range of [place] on. Gait dysfunction - to improve, our physical therapists will perform initial evaluation of pt's statu s upon admission and devise an individualized program for Gait Training, and Wheel Chair mobility Inability to transfer - to improve, our physical therapists will perform initial evaluation of pt's status upon admission and devise an individualized program for Bed mobility Need for home safety evaluation - to improve, our physical therapists will perform initial evaluatio n of pt's status upon admission and devise an individualized program for Home Evaluation Need in caregiver upon discharge - to improve, our physical therapists will perform initial evaluati on of pt's status upon admission and devise an individualized program for Caregiver Training New precaution - to improve, our physical therapists will perform initial evaluation of pt's status upon admission and devise an individualized program for Patient precaution education Edema - to improve, our physical therapists will perform initial evaluation of pt's status upon admi ssion and devise an individualized program for Elevation Training, and Lymphedema Therapy Poor balance - to improve, our physical therapists will perform initial evaluation of pt's status up on admission and devise an individualized program for Balance Training Poor endurance - to improve, our physical therapists will perform initial evaluation of pt's status upon admission and devise an individualized program for Endurance Training Weakness - to improve, our physical therapists will perform initial evaluation of pt's status upon a dmission and devise an individualized program for Aquatic Therapy, Neuromuscular Reeducation, and Str engthening Achieving independence - to improve, our physical therapists will perform initial evaluation of pt's status upon admission and devise an individualized program for Community Reintegration Activities - Occupational Therapy ADL deficits - to improve, our occupation therapists will perform initial evaluation of pt's status upon admission and devise an individualized program for Bathing, Bed mobility, Community Reintegratio n, Cooking, Dressing, Eating, Fine Motor Skills, Grooming, Homemaking, Kitchen Mobility, Laundry, Pat ient Education, Safety Awareness, Splinting - Positioning, Transfers(Toilet, Tub, Shower), and Wheel Chair Management Cognitive deficits - to improve, our occupation therapists will perform initial evaluation of pt's s tatus upon admission and devise an individualized program for Cognition - orientation Need for respiratory care instructor - to improve, our occupation therapists will perform initial evaluation of pt's status upon admission and devise an individualized program for Caregiver Training Weakness - to improve, our occupation therapists will perform initial evaluation of pt's status upon admission and devise an individualized program for Aquatic Therapy, Balance, Endurance, UE ROM, and UE strengthening - Other See attached MAR (Medication Administration Record) - Anterior Hip Precaution No abduction No active extension No adduction across midline No external rotation No hip flexion >90 degrees No internal rotation - Diet - Liquid Texture Continue Regular - Tube Feed Continue N/A - Diet Type Continue Regular - Posterior Hip Precaution No adduction across midline No external rotation No hip flexion >90 degrees No internal rotation No wheel chair propulsion - Weight Bearing Precaution TTWB left LE - Skin care per protocol - Diet - Solid Texture Continue Regular - Shower allowing shower FUNCTIONAL STATUS: UPDATED AT WEEKLY TEAM CONFERENCE - Bladder Same accident frequency: 7-Ind - No accidents in the past 7 days - Bowel Same accident frequency: 7-Ind - No accidents in the past 7 days - Walking Same score based on distance walked: 0(N/A) Same score based on distance walked: 1(<=50ft) - Wheelchair Same score based on distance traveled: 0(N/A) FUNCTIONAL STATUS: - Self-Care A. Eating Ind B. Grooming [place] C. Bathing sup D. Dressing - Upper sup E. Dressing - Lower [place] F. Toileting sup - Sphincter Control G. Bladder control Joyce H. Bowel control Joyce - Transfers Control I. Bed/Chair/Wheelchair [place] J. Toilet [place] K. Tub/Shower modA - Locomotion L. Walk/Wheelchair (B) sup M. Stairs ADNO - Communication N. Comprehension (B) sup O. Expression (B) sup - Social Cognition P. Social Interaction [place] Q. Problem Solving sup R. Memory sup - Endurance Fair - Balance Fair - Safety Awareness Fair QI SCORES: - Self-Care A. Eating 03-Partial/moderate assistance B. Oral hygiene 03-Partial/moderate assistance C. Toileting hygiene 02-Substantial/maximal assistance E. Shower/bathe self 02-Substantial/maximal assistance F. Upper body dressing 03-Partial/moderate assistance G. Lower body dressing 02-Substantial/maximal assistance H. Putting on/taking off footwear 88-Not attempted due to medical condition or safety concerns - Mobility A. Roll left and right 03-Partial/moderate assistance B. Sit to lying 03-Partial/moderate assistance C. Lying to sitting on side of bed 03-Partial/moderate assistance D. Sit to stand 02-Substantial/maximal assistance E. Chair/jtd-ld-hhyoa transfer 02-Substantial/maximal assistance F. Toilet transfer 02-Substantial/maximal assistance G. Car transfer 88-Not attempted due to medical condition or safety concerns I. Walk 10 feet 88-Not attempted due to medical condition or safety concerns J. Walk 50 feet with two turns 88-Not attempted due to medical condition or safety concerns K. Walk 150 feet 88-Not attempted due to medical condition or safety concerns L. Walking 10 feet on uneven surfaces 88-Not attempted due to medical condition or safety concerns M. 1 step (curb) 88-Not attempted due to medical condition or safety concerns N. 4 steps 88-Not attempted due to medical condition or safety concerns O. 12 steps 88-Not attempted due to medical condition or safety concerns P. Picking up object 88-Not attempted due to medical condition or safety concerns R. Wheel 50 feet with two turns 88-Not attempted due to medical condition or safety concerns S. Wheel 150 feet 88-Not attempted due to medical condition or safety concerns - Bladder and Bowel Bladder continence Bowel continence - Endurance Poor - Balance Fair - Safety Awareness Fair CURRENT FUNC. DEFICITS: Self-Care, Mobility, Endurance, Balance, and Safety Awareness SIGNATURE PANEL: ([facility])
[2021-07-04] MEDS: ROPINIROLE HCL 1 MG TAB PO SCH (20:12)
[2021-07-04] MEDS: DOCUSATE NA/SENNA CONC 1 TAB PO SCH (20:14)
[2021-07-04 20:29] VITALS: O2SAT 90
[2021-07-05] MEDS: PANTOPRAZOLE 40MG TABLET PO SCH (06:59)
[2021-07-05] MEDS: ENOXAPARIN 40 MG/0.4 ML SQ SCH (07:00)
[2021-07-05] MEDS: LIDOCAINE 4% PATCH TOP SCH (07:00)
[2021-07-05] MEDS: INSULIN -REGULAR HUMAN 50 UNIT/0.5 ML ML SQ SCH ×2 (07:30→16:30)
[2021-07-05 07:39] VITALS: BP 144/64; TEMP 97.8
[2021-07-05] MEDS: METFORMIN HCL 500 MG TAB PO SCH ×2 (07:56→17:08)
[2021-07-05] MEDS: CRANBERRY FRUIT EXTRACT 400 MG CAP PO SCH (07:56)
[2021-07-05] MEDS: ARIPiprazole 5 MG TAB PO SCH (07:56)
[2021-07-05] MEDS: CIPROFLOXACIN HCL 250 MG TAB PO SCH (07:56)
[2021-07-05] MEDS: AMLODIPINE 5 MG TAB PO SCH (07:57)
[2021-07-05] MEDS: OXYBUTYNIN ER 5 MG TAB PO SCH (07:57)
[2021-07-05] MEDS: FAMOTIDINE 20 MG TAB PO SCH (07:57)
[2021-07-05] MEDS: MAGNESIUM OXIDE 400 MG TAB PO SCH (07:58)
[2021-07-05] MEDS: GLUCERNA SHAKE 237 ML CAN PO SCH (07:58)
[2021-07-05] MEDS: SERTRALINE HCL 100 MG TAB PO SCH (07:58)
[2021-07-05] MEDS: LOSARTAN POTASSIUM 50 MG TABLET PO SCH (07:58)
[2021-07-05] MEDS: GABAPENTIN 300 MG CAP PO SCH ×2 (07:59→13:47)
[2021-07-05] MEDS: TRAMADOL HCL 50 MG TAB PO PRN (14:10)
--- NOTE | 2021-07-05 17:43 | R.PN ---
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 Pt denied any Shortness of Breath. Glucose 102 to 119. WBC 6.8, Hgb 10.4, K+ 3.4, prealbumin 9.9. Ambulated 200'' with modified independence using a rolling walker and TDWB. Self-propelled a wheelcha ir 250' with modified independence. VITAL SIGNS Temperature: 97.8 F SBP/DBP: 144/64 Pulse: 79 Resp: 16 MEDICATION ALLERGIES: No Known Drug Allergies (NKDA) ENVIRONMENTAL ALLERGIES: - Substance Allergies None Known - Other Allergies None Known NURSING: - Shower allowing shower - Skin care per protocol PRECAUTIONS: - Weight Bearing Precaution TTWB left LE ACTIVITIES OOB only with supervision THERAPIES: - Dietary and Nutrition Adequate Nutrition. Nutritional Education. Nutritional Supplements. - Occupational Therapy Cognitive Retraining. Evaluate and Treat. ADL Training. Transfer Training. Adaptive Equipment. UE Str engthening. Household Tasks. Patient/Family Education. Visual Perceptual Training. - Speech Therapy Cognitive Training. Expressive Language Skills. Memory Strategies. Receptive Language Skills. Speech Intelligibility Training. - Physical Therapy Evaluate and Treat. Gait Training. Balance Training. Transfer Training. LE Strengthening. Mobility Tr aining. Safety Awareness. Patient/Family Education. PHYSICAL EXAM - Gen Alert and awake Lying in bed No apparent distress Oriented to: person, time, and place - Skin No breakdown No abnormalities - Eyes No abnormalities - ENMT No abnormalities - Neck No abnormalities - CVS RRR - Chest No abnormalities - Abd Soft - GI + bowel sound Deferred - No abnormalities - Ext Mild left lower extremity edema. - MSK 4+/5 weakness in left lower extremity - Neuro 4/5 strength left lower extremity. ASSESSMENT: Pt. is a 71 yo Right-handed female.On 06/19/2021 she was admitted to [facility] with diagnosis Left Hip Fracture.Her impairment category is Orthopaedic Disorders 08 - Unilateral Hip Fr acture (08.11).Pre-morbidly, Pt. was independent/mod-I in Locomotion, Social Cognition, Safety Awaren ess, Balance, and Transfers Control; and she had good Sphincter Control, Self-Care, Communication, an d Endurance.Currently, she has deficits of Locomotion, Safety Awareness, Social Cognition, Balance, T ransfers Control, Sphincter Control, Self-Care, and Endurance.Pt. is now referred to [facility] for acute in-patient rehabilitation in order to maximize patient's functional indep endence in activities of daily living, strength, ROM, and mobility.- Rehab Goal Patient has realistic goal of being discharged at assistance level 7-Ind to reside at Home with Pt s elf. MDM/PLAN: - Physical Therapy Decreased range of motion - to improve, our physical therapists will perform initial evaluation of p t's status upon admission and devise an individualized program for increasing patient's Range of Diaz on. Gait dysfunction - to improve, our physical therapists will perform initial evaluation of pt's statu s upon admission and devise an individualized program for Gait Training, and Wheel Chair mobility Inability to transfer - to improve, our physical therapists will perform initial evaluation of pt's status upon admission and devise an individualized program for Bed mobility Need for home safety evaluation - to improve, our physical therapists will perform initial evaluatio n of pt's status upon admission and devise an individualized program for Home Evaluation Need in caregiver upon discharge - to improve, our physical therapists will perform initial evaluati on of pt's status upon admission and devise an individualized program for Caregiver Training New precaution - to improve, our physical therapists will perform initial evaluation of pt's status upon admission and devise an individualized program for Patient precaution education Edema - to improve, our physical therapists will perform initial evaluation of pt's status upon admi ssion and devise an individualized program for Elevation Training, and Lymphedema Therapy Poor balance - to improve, our physical therapists will perform initial evaluation of pt's status up on admission and devise an individualized program for Balance Training Poor endurance - to improve, our physical therapists will perform initial evaluation of pt's status upon admission and devise an individualized program for Endurance Training Weakness - to improve, our physical therapists will perform initial evaluation of pt's status upon a dmission and devise an individualized program for Aquatic Therapy, Neuromuscular Reeducation, and Str engthening Achieving independence - to improve, our physical therapists will perform initial evaluation of pt's status upon admission and devise an individualized program for Community Reintegration Activities - Occupational Therapy ADL deficits - to improve, our occupation therapists will perform initial evaluation of pt's status upon admission and devise an individualized program for Bathing, Bed mobility, Community Reintegratio n, Cooking, Dressing, Eating, Fine Motor Skills, Grooming, Homemaking, Kitchen Mobility, Laundry, Pat ient Education, Safety Awareness, Splinting - Positioning, Transfers(Toilet, Tub, Shower), and Wheel Chair Management Cognitive deficits - to improve, our occupation therapists will perform initial evaluation of pt's s tatus upon admission and devise an individualized program for Cognition - orientation Need for care transitions manager - to improve, our occupation therapists will perform initial evaluation of pt's status upon admission and devise an individualized program for Caregiver Training Weakness - to improve, our occupation therapists will perform initial evaluation of pt's status upon admission and devise an individualized program for Aquatic Therapy, Balance, Endurance, UE ROM, and UE strengthening - Other See attached MAR (Medication Administration Record) - Anterior Hip Precaution No abduction No active extension No adduction across midline No external rotation No hip flexion >90 degrees No internal rotation - Diet - Liquid Texture Continue Regular - Tube Feed Continue N/A - Diet Type Continue Regular - Posterior Hip Precaution No adduction across midline No external rotation No hip flexion >90 degrees No internal rotation No wheel chair propulsion - Weight Bearing Precaution TTWB left LE - Skin care per protocol - Diet - Solid Texture Continue Regular - Shower allowing shower FUNCTIONAL STATUS: UPDATED AT WEEKLY TEAM CONFERENCE - Bladder Same accident frequency: 7-Ind - No accidents in the past 7 days - Bowel Same accident frequency: 7-Ind - No accidents in the past 7 days - Walking Same score based on distance walked: 0(N/A) Same score based on distance walked: 1(<=50ft) - Wheelchair Same score based on distance traveled: 0(N/A) FUNCTIONAL STATUS: - Self-Care A. Eating Ind B. Grooming Joyce C. Bathing sup D. Dressing - Upper sup E. Dressing - Lower [place] F. Toileting sup - Sphincter Control G. Bladder control Joyce H. Bowel control Joyce - Transfers Control I. Bed/Chair/Wheelchair [place] J. Toilet [place] K. Tub/Shower modA - Locomotion L. Walk/Wheelchair (B) sup M. Stairs ADNO - Communication N. Comprehension (B) sup O. Expression (B) sup - Social Cognition P. Social Interaction Joyce Q. Problem Solving sup R. Memory sup - Endurance Fair - Balance Fair - Safety Awareness Fair QI SCORES: - Self-Care A. Eating 03-Partial/moderate assistance B. Oral hygiene 03-Partial/moderate assistance C. Toileting hygiene 02-Substantial/maximal assistance E. Shower/bathe self 02-Substantial/maximal assistance F. Upper body dressing 03-Partial/moderate assistance G. Lower body dressing 02-Substantial/maximal assistance H. Putting on/taking off footwear 88-Not attempted due to medical condition or safety concerns - Mobility A. Roll left and right 03-Partial/moderate assistance B. Sit to lying 03-Partial/moderate assistance C. Lying to sitting on side of bed 03-Partial/moderate assistance D. Sit to stand 02-Substantial/maximal assistance E. Chair/hxc-of-[id number] transfer 02-Substantial/maximal assistance F. Toilet transfer 02-Substantial/maximal assistance G. Car transfer 88-Not attempted due to medical condition or safety concerns I. Walk 10 feet 88-Not attempted due to medical condition or safety concerns J. Walk 50 feet with two turns 88-Not attempted due to medical condition or safety concerns K. Walk 150 feet 88-Not attempted due to medical condition or safety concerns L. Walking 10 feet on uneven surfaces 88-Not attempted due to medical condition or safety concerns M. 1 step (curb) 88-Not attempted due to medical condition or safety concerns N. 4 steps 88-Not attempted due to medical condition or safety concerns O. 12 steps 88-Not attempted due to medical condition or safety concerns P. Picking up object 88-Not attempted due to medical condition or safety concerns R. Wheel 50 feet with two turns 88-Not attempted due to medical condition or safety concerns S. Wheel 150 feet 88-Not attempted due to medical condition or safety concerns - Bladder and Bowel Bladder continence Bowel continence - Endurance Poor - Balance Fair - Safety Awareness Fair CURRENT FUNC. 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
--- NOTE | 2021-07-07 16:19 | R.DS ---
DISCHARGE SUMMARY FACILITY [facility] MR# [id number] NAME JOSUE GONZALEZ ADDRESS [address] [address] PHONE DATE OF 1950 AGE 71 SSN# [id number] GENDER Female MARITAL STATUS ENCOUNTER PHYSICIAN Dr. Gulshan Purvis M.D. REFERRING DOCTOR REFERRING FACILITY [facility] DISCHARGE DIAGNOSIS: - Orthopaedic Disorders 08 - Unilateral Hip Fracture (08.11) Left Hip Fracture. 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 NURSING: - Shower allowing shower - Skin care per protocol PRECAUTIONS: - Weight Bearing Precaution TTWB left LE ACTIVITIES OOB only with supervision THERAPIES: - Dietary and Nutrition Adequate Nutrition Nutritional Education Nutritional Supplements - Occupational Therapy Cognitive Retraining Evaluate and Treat ADL Training Transfer Training Adaptive Equipment UE Strengthening Household Tasks Patient/Family Education Visual Perceptual Training - Speech Therapy Cognitive Training Expressive Language Skills Memory Strategies Receptive Language Skills Speech Intelligibility Training - Physical Therapy Evaluate and Treat Gait Training Balance Training Transfer Training LE Strengthening Mobility Training Safety Awareness Patient/Family Education HISTORY OF PRESENT ILLNESS: Pt. is a 71 yo Right-handed female.On 06/19/2021 she was admitted to [facility] with diagnosis Left Hip Fracture.Her impairment category is Orthopaedic Disorders 08 - Unilateral Hip Fr acture (08.11).Pre-morbidly, Pt. was independent/mod-I in Locomotion, Social Cognition, Safety Awaren ess, Balance, and Transfers Control; and she had good Sphincter Control, Self-Care, Communication, an d Endurance.Currently, she has deficits of Locomotion, Safety Awareness, Social Cognition, Balance, T ransfers Control, Sphincter Control, Self-Care, and Endurance.Pt. is now referred to [facility] for acute in-patient rehabilitation in order to maximize patient's functional indep endence in activities of daily living, strength, ROM, and mobility.- Rehab Goal Patient has realistic goal of being discharged at assistance level 7-Ind to reside at Home with Pt s elf. ANTERIOR HIP PRECAUTION: On 06/22/2021 the following precautions were added for the patient: Anterior Hip Precaution - No abd uction, Anterior Hip Precaution - No active extension, Anterior Hip Precaution - No adduction acros s midline, Anterior Hip Precaution - No external rotation, Anterior Hip Precaution - No hip flexion >90 degrees, and Anterior Hip Precaution - No internal rotation. On 06/23/2021 the following precautions were removed for the patient: Anterior Hip Precaution - No a bduction, Anterior Hip Precaution - No active extension, Anterior Hip Precaution - No adduction acr oss midline, Anterior Hip Precaution - No external rotation, Anterior Hip Precaution - No hip flexi on >90 degrees, and Anterior Hip Precaution - No internal rotation. The following precautions were added for the patient: Anterior Hip Precaution - No abduction, Anterio r Hip Precaution - No active extension, Anterior Hip Precaution - No adduction across midline, Anteri or Hip Precaution - No external rotation, Anterior Hip Precaution - No hip flexion >90 degrees, and A nterior Hip Precaution - No internal rotation. On 07/04/2021 the following precautions were removed for the patient: Anterior Hip Precaution - No ab duction, Anterior Hip Precaution - No active extension, Anterior Hip Precaution - No adduction across midline, Anterior Hip Precaution - No external rotation, Anterior Hip Precaution - No hip flexion >9 0 degrees, and Anterior Hip Precaution - No internal rotation. The following precautions were added for the patient: Anterior Hip Precaution - No abduction, Anteri or Hip Precaution - No active extension, Anterior Hip Precaution - No adduction across midline, Ant erior Hip Precaution - No external rotation, Anterior Hip Precaution - No hip flexion >90 degrees, and Anterior Hip Precaution - No internal rotation. The following precautions were removed for the patient: Anterior Hip Precaution - No abduction, Ante rior Hip Precaution - No active extension, Anterior Hip Precaution - No adduction across midline, A nterior Hip Precaution - No external rotation, Anterior Hip Precaution - No hip flexion >90 degrees , and Anterior Hip Precaution - No internal rotation. On 06/22/2021 the following precautions were added for the patient: Posterior Hip Precaution - No ad duction across midline, Posterior Hip Precaution - No external rotation, Posterior Hip Precaution - No hip flexion >90 degrees, Posterior Hip Precaution - No internal rotation, and Posterior Hip Prec aution - No wheel chair propulsion. On 06/23/2021 the following precautions were removed for the patient: Posterior Hip Precaution - No adduction across midline, Posterior Hip Precaution - No external rotation, Posterior Hip Precaution - No hip flexion >90 degrees, Posterior Hip Precaution - No internal rotation, and Posterior Hip Pr ecaution - No wheel chair propulsion. The following precautions were added for the patient: Posterior Hip Precaution - No adduction across midline, Posterior Hip Precaution - No external rotation, Posterior Hip Precaution - No hip flexion > 90 degrees, Posterior Hip Precaution - No internal rotation, and Posterior Hip Precaution - No wheel chair propulsion. On 07/04/2021 the following precautions were removed for the patient: Posterior Hip Precaution - No a dduction across midline, Posterior Hip Precaution - No external rotation, Posterior Hip Precaution - No hip flexion >90 degrees, Posterior Hip Precaution - No internal rotation, and Posterior Hip Precau tion - No wheel chair propulsion. The following precautions were added for the patient: Posterior Hip Precaution - No adduction across midline, Posterior Hip Precaution - No external rotation, Posterior Hip Precaution - No hip flexio n >90 degrees, Posterior Hip Precaution - No internal rotation, and Posterior Hip Precaution - No w heel chair propulsion. The following precautions were removed for the patient: Posterior Hip Precaution - No adduction acro ss midline, Posterior Hip Precaution - No external rotation, Posterior Hip Precaution - No hip flex ion >90 degrees, Posterior Hip Precaution - No internal rotation, and Posterior Hip Precaution - No wheel chair propulsion. On 06/20/2021 the following precautions were added for the patient: Weight Bearing Precaution - TTWB left LE. On 06/22/2021 the following precautions were added for the patient: Weight Bearing Precaution - TTWB left LE. On 06/23/2021 the following precautions were removed for the patient: Weight Bearing Precaution - TT WB left LE. On 07/04/2021 the following precautions were added for the patient: Weight Bearing Precaution - TTWB left LE. DIET - LIQUID TEXTURE: On 06/20/2021 Pt was upgraded to Regular Diet - Liquid Texture. DIET - SOLID TEXTURE: On 06/20/2021 Pt was upgraded to Regular Diet - Solid Texture. DIET TYPE: On 06/20/2021 Pt was upgraded to Regular Diet Type. POSTERIOR HIP PRECAUTION: TUBE FEED: On 06/20/2021 Pt was changed to N/A Tube Feed. WEIGHT BEARING PRECAUTION: DISCHARGE PHYSICAL EXAM - Gen Alert and awake Lying in bed No apparent distress Oriented to: person, time, and place - Skin No breakdown No abnormalities - Eyes No abnormalities - ENMT No abnormalities - Neck No abnormalities - CVS RRR - Chest No abnormalities - Abd Soft - GI + bowel sound Deferred - No abnormalities - Ext Mild left lower extremity edema. - MSK 4+/5 weakness in left lower extremity - Neuro 4/5 strength left lower extremity. FUNCTIONAL STATUS: - Self-Care A. Eating 7-Ind B. Grooming 6-Joyce C. Bathing 6-Joyce D. Dressing - Upper 6-Joyce E. Dressing - Lower 6-Joyce F. Toileting 6-Joyce - Sphincter Control G. Bladder control 6-Joyce H. Bowel control 6-Joyce - Transfers Control I. Bed/Chair/Wheelchair 6-Joyce J. Toilet 6-Joyce K. Tub/Shower 6-Joyce - Locomotion L. Walk/Wheelchair (B) 6-Joyce M. Stairs 5-sup - Communication N. Comprehension (B) 6-Joyce O. Expression (B) 6-Joyce - Social Cognition P. Social Interaction 6-Joyce Q. Problem Solving 6-Joyce R. Memory 6-Joyce - Endurance Good - Balance Good - Safety Awareness Good QI SCORES: - Self-Care A. Eating 03-Partial/moderate assistance B. Oral hygiene 03-Partial/moderate assistance C. Toileting hygiene 02-Substantial/maximal assistance E. Shower/bathe self 02-Substantial/maximal assistance F. Upper body dressing 03-Partial/moderate assistance G. Lower body dressing 02-Substantial/maximal assistance H. Putting on/taking off footwear 88-Not attempted due to medical condition or safety concerns - Mobility A. Roll left and right 03-Partial/moderate assistance B. Sit to lying 03-Partial/moderate assistance C. Lying to sitting on side of bed 03-Partial/moderate assistance D. Sit to stand 02-Substantial/maximal assistance E. Chair/[id number] transfer 02-Substantial/maximal assistance F. Toilet transfer 02-Substantial/maximal assistance G. Car transfer 88-Not attempted due to medical condition or safety concerns I. Walk 10 feet 88-Not attempted due to medical condition or safety concerns J. Walk 50 feet with two turns 88-Not attempted due to medical condition or safety concerns K. Walk 150 feet 88-Not attempted due to medical condition or safety concerns L. Walking 10 feet on uneven surfaces 88-Not attempted due to medical condition or safety concerns M. 1 step (curb) 88-Not attempted due to medical condition or safety concerns N. 4 steps 88-Not attempted due to medical condition or safety concerns O. 12 steps 88-Not attempted due to medical condition or safety concerns P. Picking up object 88-Not attempted due to medical condition or safety concerns R. Wheel 50 feet with two turns 88-Not attempted due to medical condition or safety concerns S. Wheel 150 feet 88-Not attempted due to medical condition or safety concerns - Bladder and Bowel Bladder continence Bowel continence - Endurance Poor - Balance Fair - Safety Awareness Fair DISCHARGE INSTRUCTIONS: - N/A Mobilization and ASA 81 mg daily for DVT prophylaxis. DISCHARGE PLAN, FOLLOW UP CARE PROVISIONS: - Estimated Length of Stay (days) 14. - Consensus on plan Discharge plan has been discussed with primary caregiver. Patient/Family is in agreement with the aleida n. Primary caregiver is in agreement with the plan. - Patient/Family Goals Return home independently. - Planned Living Setting Upon Discharge Home, to live alone. Transitional Living. Primary caregiver: Pt self. 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
== END 2021-07-05 18:15 | disposition home health service (06) | DRG 560 ==
LOC: 5TH 14:50
PROVIDERS: ADMIT Internal Medicine; ATTEND Psychiatry & Neurology Neurology with Special Qualifications in Child Neurology
DX: S72.142D Displaced intertrochanteric fracture of left femur, subsequent encounter for closed fracture with routine healing (principal); D62 Acute posthemorrhagic anemia; N39.0 Urinary tract infection, site not specified; E11.9 Type 2 diabetes mellitus without complications; I10 Essential (primary) hypertension; E78.2 Mixed hyperlipidemia; K21.9 Gastro-esophageal reflux disease without esophagitis; K57.90 Diverticulosis of intestine, part unspecified, without perforation or abscess without bleeding; F32.A Depression, unspecified; G62.9 Polyneuropathy, unspecified; M85.80 Other specified disorders of bone density and structure, unspecified site; K59.00 Constipation, unspecified; N32.81 Overactive bladder; E87.6 Hypokalemia; Z20.822 Contact with and (suspected) exposure to COVID-19
CPT/HCPCS: 36415; 80048; 81001; 81003; 82040; 82947; 83735; 84132; 84134; 85025; 87077; 87086; 87088; 87186; 97110; 97116; 97161; 97530; 97542; J1650; U0003

== ENCOUNTER 2022-05-16 08:47 | Observation (INO) | payer OTHER, BC ==
[2022-05-16] MEDS ORDERED: MAGNESIUM SULFATE 1 gm IVPB 1 GM/100 ML BAG IV ONE (09:01)
[2022-05-16] MEDS ORDERED: METOPROLOL TARTRATE 5 MG/5 ML INJ IV ONE (09:01)
[2022-05-16] MEDS ORDERED: METOPROLOL TAR 50 MG TAB ONE (09:10)
[2022-05-16] MEDS ORDERED: METOPROLOL TAR 25 MG TAB ONE (09:12)
[2022-05-16 09:23] LABS: Absolute Lymphocytes (CBC) 1.4 K/uL (0.7-4.9); Hematocrit 39.5 % (36.0-45.0); Lymphocytes % 15.5 % (15.3-44.8); MCV 78.7 fL (80-100); MPV 9.3 fL (7.6-11.3); RBC Red Blood Cell Count 5.02 M/uL (3.86-4.86)
[2022-05-16 09:34] LABS: Protime INR 1.02
--- NOTE | 2022-05-16 09:38 | RAD REPORT ---
EXAM DESCRIPTION: RAD - Chest Single View - 05/16/2022 9:22 am CLINICAL HISTORY: PALPITATIONS COMPARISON: Portable 06/18/2021 TECHNIQUE: AP portable chest image was obtained 05/16/2022 9:22 am . FINDINGS: Prominent interstitial lung pattern is present similar to comparison. Pattern is accentuat ed somewhat by shallow inspiration. Slightly increased density in the right suprahilar region has not clearly changed. Chronic pattern could mask minimal edema or infiltrate. Monitoring devices overlie the lower chest. Heart and vasculature are normal. No measurable pleural e ffusion and no pneumothorax. No acute bony abnormality seen. No acute aortic findings suspected. IMPRESSION: No focal mass or consolidation. Above detailed chest findings not significantly different from comparison.
[2022-05-16 09:44] LABS: Potassium 4.4 mmol/L (3.5-5.1); Troponin High Sensitivity 32.6 pg/mL (<58.9)
--- NOTE | 2022-05-16 10:35 | EDPHYS ---
Physician Documentation [facility] Name: Angelique Ayala Age: 72 yrs Sex: Female : 1950 Arrival Date: 05/16/2022 Time: 08:49 Bed 6 Private MD: Manolo Miller C ED Physician Teofilo Kaplan HPI: 05/16 10:30 This 72 yrs old Female presents to ER via Wheelchair with complaints of Irregular Pulse.rn 10:30 The patient presents with a history of irregular heart beat, heart racing. Context: The rn symptoms occur at rest. Onset: The symptoms/episode began/occurred 2 day(s) ago. Duration: The patient or guardian reports a single episode, that is still ongoing. Modifying factors: The symptoms are aggravated by nothing. The symptoms are alleviated by nothing. Associated signs and symptoms: Pertinent positives: lightheadedness, SOB, Pertinent negatives: cough, fever. Severity of symptoms: At their worst the symptoms were moderate in the emergency department the symptoms are unchanged. The patient has experienced a previous episode. The patient has been recently seen by a physician:. Sent by Dr. Miller for palpitations and tachycardia, has had tachycardia in past but told at that time was sinus tachycardia. NO hx of afib. HR in 180s-200 today. No syncope. + mild sob. No chest pain.. Historical: - Allergies: 09:12 Naproxen; tw2 09:12 Versed; tw2 09:12 propofol; tw2 09:12 midazolam HCl; tw2 - Home Meds: 09:14 omeprazole 40 mg Oral cpDR 1 cap once daily [Active]; metoprolol tartrate 25 mg Oral tw2 tab 0.5 tab once daily [Active]; losartan 50 mg oral tab 1 tab 2 times per day [Active]; metformin 1,000 mg Oral tab 1 tab 2 times per day [Active]; gabapentin 300 mg oral cap 1 cap 3 times per day [Active]; aripiprazole 5 mg oral tbsr 1 tab once daily [Active]; sertraline 200 mg oral cap 1 cap once daily [Active]; magnesium oxide 400 mg magnesium Oral tab daily [Active]; Colace 100 mg oral cap 1 cap 2 times per day [Active]; aspirin 81 mg Oral cap 1 cap once daily [Active]; famotidine 40 mg Oral tab 1 tab once daily [Active]; ropinirole 1 mg oral tab 1 tab [Active]; oxybutynin chloride 10 mg Oral tr24 1 tab once daily [Active]; clonazepam 0.5 mg Oral tab 0.5 tab prn [Active]; Multiple Vitamins oral tab [Active]; Vitamin C 1,000 mg Oral tab [Active]; - PMHx: 09:12 diabetes mellitus; GERD; Hypertensive disorder; tw2 - Immunization history:: Adult Immunizations. - Social history:: Smoking status: . - Family history:: not pertinent. - Hospitalizations: : No recent hospitalization is reported. ROS: 10:30 Constitutional: Negative for fever, chills, and weight loss, Eyes: Negative for injury, rn pain, redness, and discharge, Neck: Negative for injury, pain, and swelling, Cardiovascular: + palpitations Respiratory: Negative for cough, wheezing, and pleuritic chest pain, Abdomen/GI: Negative for abdominal pain, nausea, vomiting, diarrhea, and constipation, Back: Negative for injury and pain, MS/Extremity: Negative for injury and deformity, Skin: Negative for injury, rash, and discoloration, Neuro: Negative for headache, weakness, numbness, tingling, and seizure. Exam: 10:30 Constitutional: This is a well developed, well nourished patient who is awake, alert, rn seems a little anxious Head/Face: Normocephalic, atraumatic. Eyes: Periorbital areas with no swelling, redness, or edema. Cardiovascular: Tachycardic, irregular. No pulse deficits. Respiratory: No increased work of breathing, no retractions or nasal flaring. Abdomen/GI: Soft, non-tender Skin: Warm, dry MS/ Extremity: Pulses equal, no cyanosis. Neuro: Awake and alert, GCS 15 10:30 ECG was reviewed by the Attending Physician. Vital Signs: 08:50 BP 129 / 53; Pulse 165; Resp 24; Pulse Ox 98% on R/A; mb9 08:52 Pulse 200; aa5 09:08 BP 137 / 81; Pulse 112; Resp 25; Pulse Ox 98% on R/A; mb9 09:13 Temp 99(TE); Weight 68.04 kg (R); tw2 09:27 BP 137 / 81; Pulse 113; Resp 24; Pulse Ox 95% on R/A; tw2 09:35 BP 105 / 67; Pulse 107; Resp 24; Pulse Ox 97% on R/A; mb9 09:45 BP 115 / 66; Pulse 105; Resp 24; Pulse Ox 98% on R/A; mb9 09:55 BP 110 / 65; Pulse 110; Resp 24; Pulse Ox 100% on R/A; mb9 10:08 BP 121 / 77; Pulse 116; Resp 15; Pulse Ox 96% on R/A; mb9 11:36 BP 120 / 82; Pulse 112; Resp 20; Pulse Ox 98% on R/A; tw2 12:08 BP 137 / 94; Pulse 112; Resp 20; Pulse Ox 100% on R/A; mb9 MDM: 08:55 Patient medically screened. rn 10:30 Differential diagnosis: arrythmia, dehydration, stress disorder. Data reviewed: vital rn signs, nurses notes, lab test result(s), EKG, radiologic studies, plain films, and as a result, I will admit patient. Counseling: I had a detailed discussion with the patient and/or guardian regarding: the historical points, exam findings, and any diagnostic results supporting the discharge/admit diagnosis, lab results, radiology results, the need for further work-up and treatment in the hospital. Response to treatment: the patient's symptoms have markedly improved after treatment, and as a result, I will admit patient. Admission orders: after a detailed discussion of the patient's condition and case, the admit orders are written by me. 05/16 09:00 Order name: Basic Metabolic Panel; Complete Time: 10:21 rn 05/16 09:00 Order name: CBC with Diff; Complete Time: 09:39 rn 05/16 09:00 Order name: NT PRO-BNP; Complete Time: 10:21 rn 05/16 09:00 Order name: PT-INR; Complete Time: 09:39 rn 05/16 09:00 Order name: Troponin HS; Complete Time: 10:21 rn 05/16 09:39 Order name: SARS RAPID; Complete Time: 12:37 rn 05/16 09:00 Order name: XRAY Chest (1 view); Complete Time: 10:21 rn 05/16 09:00 Order name: EKG; Complete Time: 09:01 rn 05/16 12:47 Order name: Diet Heart Healthy; Complete Time: 12:48 aa5 05/16 09:00 Order name: Cardiac monitoring; Complete Time: : rn 05/16 09:00 Order name: EKG - Nurse/Tech; Complete Time: rn 05/16 09:00 Order name: IV Saline Lock; Complete Time: : rn 05/16 09:00 Order name: Labs collected and sent; Complete Time: : rn 05/16 09:00 Order name: O2 Per Protocol; Complete Time: rn 05/16 09:00 Order name: O2 Sat Monitoring; Complete Time: rn EC:30 Rate is 170 beats/min. Rhythm is irregularly irregular. QRS [place] is Normal. QRS rn interval is normal. QT interval is normal. No Q waves. T waves are Normal. No ST changes noted. Clinical impression: Atrial Fibrillation. Interpreted by me. Reviewed by me. Administered Medications: 09:02 Drug: Metoprolol 5 mg Route: IVP; Site: right antecubital; tw2 15:42 Follow up: 2nd and 3rd doses not given per MD cai 09:05 Drug: Magnesium Sulfate 1 grams Route: IVPB; Infused Over: 1 hrs; Site: right tw2 antecubital; 09:28 Follow up: Response: No adverse reaction; IV Status: Completed infusion; IV Intake: tw2 100ml 09:13 CANCELLED (Physician Discretion): Metoprolol 50 mg PO once aa5 09:13 Drug: Metoprolol 25 mg Route: PO; aa5 09:28 Follow up: Response: No adverse reaction tw2 11:18 Drug: Lovenox (enoxaparin) 1 mg/kg Route: Sub-Q; Site: right lower abdomen; mb9 11:39 Follow up: Response: No adverse reaction tw2 Disposition Summary: 05/16/22 10:35 Hospitalization Ordered Hospitalization Status: Inpatient Admission rn Provider: Manolo Miller rn Location: Telemetry/[facility] (Inpatient) rn Condition: Stable rn Problem: new rn Symptoms: have improved rn Bed/Room Type: Standard rn Room Assignment: (05/16/22 16:27) ayala Diagnosis - Persistent atrial fibrillation - with RVR rn - Dyspnea, unspecified rn - Hyperglycemia, unspecified rn Forms: - Medication Reconciliation Form rn - SBAR form internal revenue agent time excluding procedures: 10:34 Critical care time: Bedside Care: 35 minutes. Total time: 35 minutes rn Signatures: Dispatcher [employer] Emma Fritz RN RN dw Teofilo Kaplan MD MD rn Calderon, Audri RN RN aa5 Erlinda Olson RN RN tw2 Tricia Hong RN RN mb9 Corrections: (The following items were deleted from the chart) 09:13 09:10 Metoprolol 50 mg PO once ordered. aa5 aa5 09:13 09:13 Metoprolol 50 mg PO once ordered. aa5 aa5 15:36 10:35 rn marshall 16:27 15:36 221 dw mb9
--- NOTE | 2022-05-16 10:35 | ER ---
Nurse's Notes [facility] Name: Angelique Ayala Age: 72 yrs Sex: Female : 1950 Arrival Date: 05/16/2022 Time: 08:49 Bed 6 Private MD: Manolo Miller C Diagnosis: Persistent atrial fibrillation-with RVR;Dyspnea, unspecified;Hyperglycemia, unspecified Presentation: 05/16 09:00 Chief complaint: Patient states: sent from Dr. Miller's office for high heart rate, has iw been taking metoprolol nightly for sinus tachycardia for past month and a half. She felt her heart racing on Sunday and worse today. 09:00 Method Of Arrival: Wheelchair iw 09:07 Coronavirus screen: At this time, the client does not indicate any symptoms associated iw with coronavirus-19. Ebola Screen: Patient negative for fever greater than or equal to 101.5 degrees Fahrenheit, and additional compatible Ebola Virus Disease symptoms Patient denies exposure to infectious person. Patient denies travel to an Ebola-affected area in the 21 days before illness onset. No symptoms or risks identified at this time. Risk Assessment: Do you want to hurt yourself or someone else? Patient reports no desire to harm self or others. Onset of symptoms was May 14, 2022. 09:07 Acuity: CHAZ 2 iw 10:12 Initial Sepsis Screen: Does the patient meet any 2 criteria? HR > 90 bpm. Does the tw2 patient have a suspected source of infection? No. Patient's initial sepsis screen is negative. Historical: - Allergies: 09:12 Naproxen; tw2 09:12 Versed; tw2 09:12 propofol; tw2 09:12 midazolam HCl; tw2 - Home Meds: 09:14 omeprazole 40 mg Oral cpDR 1 cap once daily [Active]; metoprolol tartrate 25 mg Oral tw2 tab 0.5 tab once daily [Active]; losartan 50 mg oral tab 1 tab 2 times per day [Active]; metformin 1,000 mg Oral tab 1 tab 2 times per day [Active]; gabapentin 300 mg oral cap 1 cap 3 times per day [Active]; aripiprazole 5 mg oral tbsr 1 tab once daily [Active]; sertraline 200 mg oral cap 1 cap once daily [Active]; magnesium oxide 400 mg magnesium Oral tab daily [Active]; Colace 100 mg oral cap 1 cap 2 times per day [Active]; aspirin 81 mg Oral cap 1 cap once daily [Active]; famotidine 40 mg Oral tab 1 tab once daily [Active]; ropinirole 1 mg oral tab 1 tab [Active]; oxybutynin chloride 10 mg Oral tr24 1 tab once daily [Active]; clonazepam 0.5 mg Oral tab 0.5 tab prn [Active]; Multiple Vitamins oral tab [Active]; Vitamin C 1,000 mg Oral tab [Active]; - PMHx: 09:12 diabetes mellitus; GERD; Hypertensive disorder; tw2 - Immunization history:: Adult Immunizations. - Social history:: Smoking status: . - Family history:: not pertinent. - Hospitalizations: : No recent hospitalization is reported. Screenin:08 Abuse screen: Denies threats or abuse. Nutritional screening: No deficits noted. tw2 Tuberculosis screening: No symptoms or risk factors identified. Fall Risk None identified. Assessment: 08:50 General: Appears uncomfortable, Behavior is calm, cooperative, appropriate for age. mb9 08:50 Pain: Denies pain. mb9 08:50 Neuro: Neuro: Level of Consciousness is awake, alert, obeys commands, Oriented to mb9 person, place, time, situation, Appropriate for age. Cardiovascular: Heart tones S1 S2 present Rhythm is atrial fibrillation with rapid ventricular response Chest pain is denied. 08:50 Respiratory: Reports shortness of breath at rest since this morning Airway is patent mb9 Respiratory effort is even, unlabored, Respiratory pattern is regular, symmetrical, Breath sounds are clear bilaterally. GI: Abdomen is flat. : No signs and/or symptoms were reported regarding the genitourinary system. EENT: No signs and/or symptoms were reported regarding the EENT system. Derm: Skin is pink, warm \T\ dry. Musculoskeletal: Range of motion: intact in all extremities. 08:50 Pain: Pain began 1 day ago. tw2 09:08 Reassessment: Second and third doses of metoprolol held per Dr. Kaplan. mb9 10:44 General: Appears in no apparent distress. comfortable, Behavior is calm, cooperative, mb9 appropriate for age. Pain: Denies pain. Neuro: Level of Consciousness is awake, alert, obeys commands, Oriented to person, place, time, situation, Appropriate for age. Cardiovascular: Heart tones S1 S2 present Rhythm is sinus tachycardia Chest pain is denied. Respiratory: Airway is patent Respiratory effort is even, unlabored, Respiratory pattern is regular, symmetrical, Breath sounds are clear bilaterally. Denies shortness of breath. Derm: Skin is pink, warm \T\ dry. 11:22 Reassessment: Dr. Kaplan at bedside. mb9 12:07 General: Appears in no apparent distress. comfortable, Behavior is calm, cooperative, mb9 appropriate for age. Pain: Denies pain. Neuro: Level of Consciousness is awake, alert, obeys commands. Cardiovascular: Heart tones S1 S2 present Rhythm is sinus tachycardia. Respiratory: Denies shortness of breath. Derm: Skin is pink, warm \T\ dry. Vital Signs: 08:50 BP 129 / 53; Pulse 165; Resp 24; Pulse Ox 98% on R/A; mb9 08:52 Pulse 200; aa5 09:08 BP 137 / 81; Pulse 112; Resp 25; Pulse Ox 98% on R/A; mb9 09:13 Temp 99(TE); Weight 68.04 kg (R); tw2 09:27 BP 137 / 81; Pulse 113; Resp 24; Pulse Ox 95% on R/A; tw2 09:35 BP 105 / 67; Pulse 107; Resp 24; Pulse Ox 97% on R/A; mb9 09:45 BP 115 / 66; Pulse 105; Resp 24; Pulse Ox 98% on R/A; mb9 09:55 BP 110 / 65; Pulse 110; Resp 24; Pulse Ox 100% on R/A; mb9 10:08 BP 121 / 77; Pulse 116; Resp 15; Pulse Ox 96% on R/A; mb9 11:36 BP 120 / 82; Pulse 112; Resp 20; Pulse Ox 98% on R/A; tw2 12:08 BP 137 / 94; Pulse 112; Resp 20; Pulse Ox 100% on R/A; mb9 ED Course: 08:49 Patient arrived in ED. as 08:49 Manolo Miller MD is Private Physician. as 08:50 Placed in gown. Bed in low position. Call light in reach. Side rails up X 1. mb9 08:50 Client placed on continuous cardiac and pulse oximetry monitoring. NIBP monitoring mb9 applied. traffic monitor specialist on. 08:55 Teofilo Kaplan MD is Attending Physician. rn 08:55 Inserted saline lock: 18 gauge in left antecubital area, using aseptic technique. mb9 08:55 EKG done, by ED staff, reviewed by Teofilo Kaplan MD. Inserted saline lock: 20 gauge in mb9 right antecubital area, using aseptic technique. ,using aseptic technique. done by PAVITHRA Lomeli Blood collected. 08:55 Patient maintains SpO2 saturation greater than 95% on room air. tw2 09:01 Tricia Hong RN is Primary Nurse. mb9 09:07 Triage completed. iw 09:09 Arm band placed on. tw2 09:23 XRAY Chest (1 view) In Process Unspecified. EDMS 10:35 Manolo Miller MD is Hospitalizing Provider. rn 11:22 SARS RAPID Sent. mb9 Administered Medications: 09:02 Drug: Metoprolol 5 mg Route: IVP; Site: right antecubital; tw2 15:42 Follow up: 2nd and 3rd doses not given per mb9 09:05 Drug: Magnesium Sulfate 1 grams Route: IVPB; Infused Over: 1 hrs; Site: right tw2 antecubital; 09:28 Follow up: Response: No adverse reaction; IV Status: Completed infusion; IV Intake: tw2 100ml 09:13 CANCELLED (Physician Discretion): Metoprolol 50 mg PO once aa5 09:13 Drug: Metoprolol 25 mg Route: PO; aa5 09:28 Follow up: Response: No adverse reaction tw2 11:18 Drug: Lovenox (enoxaparin) 1 mg/kg Route: Sub-Q; Site: right lower abdomen; mb9 11:39 Follow up: Response: No adverse reaction tw2 Medication: 09:09 VIS not applicable for this client. tw2 Intake: 09:28 IV: 100ml; Total: 100ml. tw2 Outcome: 10:35 Decision to Hospitalize by Provider. rn 17:13 Patient left the ED. tw2 Signatures: Dispatcher [employer] EDMS Bella Pope Irene, RN RN iw Teofilo Kaplan MD MD rn Calderon, Audri, RN RN aa5 Erlinda Olson RN RN tw2 Tricia Hong, RN PAVITHRA mb9 Corrections: (The following items were deleted from the chart) 09:08 09:00 Chief complaint: Patient states: sent from Dr. Miller's office for high heart rate, iw has been taking metoprolol nightly for sinus tachycardia but she felt her heart racing on Sunday and worse today iw 09: 09:07 Metoprolol 5 mg IVP in right antecubital tw2 tw2 10:05 08:50 Pain: Denies pain. mb9 mb9 10:05 08:50 Neuro: mb9 mb9
[2022-05-16] MEDS ORDERED: ENOXAPARIN 60 MG/0.6 ML SQ ONE (10:50)
[2022-05-16 11:38] LABS: SARS-CoV-2 Antigen Rapid Res Negative (Negative)
--- NOTE | 2022-05-16 13:55 | EKG ---
Test Date: 2022-05-16 Test Time: 08:55:17 Welding Teacher: EMILY MEASUREMENT RESULTS: Intervals: Rate: 170 [place]: QRSD: 74 QT: 232 QTc: 390 [place]: P: OK: QRS: 90 T: 101 INTERPRETIVE STATEMENTS: Atrial fibrillation with rapid ventricular response Rightward axis Nonspecific T wave abnormality, probably digitalis effect Abnormal ECG Compared to ECG 02/13/2022 12:57:19 Right-axis deviation now present T-wave abnormality now present Sinus tachycardia no longer present ST (T wave) deviation no longer present Electronically Signed On 05-16-22 13:53:47 PAPER BALING MACHINE OPERATOR by Mike Vasquez
[2022-05-16] MEDS ORDERED: ONDANSETRON 4 MG/2 ML VIAL IV PRN (14:10)
[2022-05-16 14:36] VITALS: BMI 29.2
[2022-05-16 14:41] VITALS: BP 143/85; TEMP 99
--- NOTE | 2022-05-16 17:47 | CON ---
Date of Consultation: 05/16/2022 Reason For Consultation: Atrial fibrillation with rapid ventricular response. History Of Present Illness: This is a middle-aged female with history of hypertension and dyslipidem ia. She presented from her primary care physician's office due to atrial fibrillation with rapid abdulaziz tricular response. Upon arrival to the emergency room, her heart rate was high in the 160 and 170s a nd atrial fibrillation. She was given 1 dose of metoprolol IV and converted to sinus rhythm. She wright s been taking 12.5 mg of metoprolol twice a day as per her report and this atrial fibrillation is not the first episode, she had it earlier for which she was started on metoprolol. Denies having any ch est pain, but she had shortness of breath when this happened and now she is completely asymptomatic. Past Medical History: Diabetes, no hypertension, and paroxysmal atrial fibrillation. Medications: Refer to reconciliation sheet for detailed list. Allergies: NO KNOWN DRUG ALLERGIES. Family History: No premature coronary artery disease or cancer. Social History: Does not smoke or drink. Does not use drugs. Review of Systems: All systems reviewed and they were negative except what mentioned in HPI. Physical Examination: Vital Signs: Reviewed. Head and Neck: Pupils are equal, reactive to light. Intact eye movements. No JVD. No cervical lym phadenopathy. Neck is supple. Thyroid is not enlarged. Lungs: Clear to auscultation bilaterally. No rhonchi, wheezing, or crackles. No accessory muscle u se. Heart: Regular rate and rhythm. No extra sounds. Abdomen: Soft, nontender. Bowel sounds positive. No organomegaly. No masses or hernia. No rigidi ty or rebound. Extremities: No edema, clubbing, or cyanosis. Intact pulses. Skin: No rash. Neurologic: Alert, awake, oriented x3. No acute focal deficits appreciated. Lymph Nodes: No cervical or axillary lymphadenopathy. Investigations: Labs were reviewed. Assessment And Recommendations: 1.Atrial fibrillation with rapid ventricular response, converted easily with metoprolol IV. To star t her on metoprolol 25 mg by mouth twice a day give her first dose now, Eliquis 5 mg twice a day firs t dose now. From Cardiology standpoint, this patient can be released and follow up with me in the [facility] days and we will plan for echocardiogram and a stress test as an outpatient. 2.Hypertension. Blood pressure is controlled. Continue home medications. Thank you for the consult. ÓSCAR Voice ID: [id number] Report ID: [id number]
[2022-05-16] MEDS ORDERED: METOPROLOL TAR 25 MG TAB PO SCH (18:00)
[2022-05-16 18:28] VITALS: O2SAT 100
[2022-05-16] MEDS ORDERED: ENOXAPARIN 60 MG/0.6 ML SQ SCH (21:00)
--- NOTE | 2022-05-18 01:15 | SS ---
Date of Admission: 05/16/2022 Date of Discharge: 05/16/2022 Chief Complaint: Heart racing feeling and shortness of breath. History Of Present Illness: This 72-year-old female patient came into office today with complaints of not feeling good and reported that for last 2 days, she has heart racing feeling and shortness of breath associated with this heart racing feeling. The patient gets short of breath walking a few steps or even at rest. Denies any chest pain. No fever, chills, nausea, vomiting, or diarrhea. After she was evaluated, she was sent to emergency room as we were not able to record her pulse rate, which was fast and irregular. Her blood pressure was stable. With this, I was concerned about possibility of atrial fibrillation and she was sent to emergency room and details were discussed with the ER physician. The patient was evaluated in the emergency room, was diagnosed as having atrial fibrillation with rapid ventricular rate, and the patient was admitted to the hospital. After treatment in the emergency room, she did convert to sinus rhythm. Allergies: MIDAZOLAM CAUSING BRADYCARDIA, NAPROXEN CAUSING HIVES, STATIN CAUSING MUSCLE WEAKNESS, AND ZETIA ALSO CAUSING MUSCLE WEAKNESS. Medications: List reviewed. Review of Systems: Cardiovascular: As mentioned above. Respiratory: As mentioned above. All other systems reviewed and negative. Past Medical History: Significant for headache, peripheral neuropathy, type 2 diabetes mellitus, mixed hyperlipidemia, hypertension, gastroesophageal reflux disease, diverticulosis, depression, and osteopenia. Past Surgical History: Tonsillectomy, cholecystectomy, hysterectomy, and surgery for wrist fracture. Family History: Father , had diabetes and hypertension. Mother , had congestive heart failure and diabetes. Social History: Prior history of smoking, not at present time. Use of alcohol: Glass of wine daily. Physical Examination: Vital Signs: Initially temperature was 99, pulse was 165 in the beginning and then it was recorded as 200, respiratory rate 24, blood pressure 129/53, oxygen saturation 98%. Height 5 feet, weight 150 pounds. General: Awake, alert, oriented, not in distress. HEENT: Head atraumatic, normocephalic. Conjunctivae nonerythematous. Sclerae white. Mouth, no thrush or edema noted. Ears/Nose, no mass, lesion, discharge noted. Neck: Supple. No JVD, lymph nodes, bruit, thyromegaly noted. Lungs: Bilateral good equal air entry. Clear to auscultation. No rhonchi. No rales. Heart: Patient's heart rate was rapid and rhythm was irregular. Abdomen: Soft, bowel sounds normal. No guarding, rigidity, tenderness, mass, hepatosplenomegaly, distention, or bruit noted. Extremities: No leg edema. No calf tenderness. Skin: No rash, ulcer, cellulitis. Lymphatics: No lymph node enlargement in neck, supraclavicular, infraclavicular region. Neuro: No focal neurological deficit. Chest: Unremarkable. External Genitalia: Deferred. Rectal: Deferred. Laboratory Data: White count 9.3, hemoglobin 12.6, platelets 309. Sodium 138, potassium 4.4, chloride 103, bicarb 27, BUN 13, creatinine 1.02, glucose 252. Troponin 32.6. ProBNP 2330. COVID-19 test negative. Chest x-ray: No acute cardiopulmonary changes. EKG: Atrial fibrillation with rapid ventricular rate. Hospital Course: After patient was evaluated in the emergency room, she was treated for this atrial fibrillation with rapid ventricular rate and she did convert to sinus rhythm. Cardiology consultation was requested and Dr. Vasquez did see her in the emergency room and he released her to go home from cardiology's point of view because patient was in sinus rhythm and suggested for patient to go home with higher dose of metoprolol 25 mg 2 times a day. Prior to this admission, she was taking 12.5 mg 2 times a day and also to discharge patient to go home with Eliquis 5 mg 2 times a day. Medically, patient was stable for discharge. Discharge Medications And Instructions: 1. Continue all previous home medication except change metoprolol 25 mg, take 1 tablet by mouth 2 times a day. 2. Start taking Eliquis 5 mg, take 1 tablet by mouth 2 times a day. 3. Follow up at my office day after tomorrow. Final Diagnoses: 1. Atrial fibrillation, paroxysmal. 2. Hypertension. 3. Mixed hyperlipidemia. 4. Type 2 diabetes mellitus. 5. Gastroesophageal reflux disease. 6. Diverticulosis. 7. Depression. 8. Osteopenia. YOLANDA/MODL Voice ID: [id number] Report ID: [id number] [facility] CENTERThompson
--- NOTE | 2022-05-18 06:36 | EKG ---
Test Date: 2022-05-16 Test Time: 10:41:12 Hands Assembler: INNA MEASUREMENT RESULTS: Intervals: Rate: 112 CT: 212 QRSD: 80 QT: 302 QTc: 412 [place]: P: 98 CT: 212 QRS: 81 T: 58 INTERPRETIVE STATEMENTS: Sinus tachycardia with 1st degree AV block Otherwise normal ECG Compared to ECG 05/16/2022 08:55:17 First degree AV block now present Atrial fibrillation no longer present Right-axis deviation no longer present T-wave abnormality no longer present Electronically Signed On 05-18-22 06:30:59 SOLDERING MACHINE SETTER by Eleuterio Herrera
== END 2022-05-16 17:08 | disposition home or self-care (01) ==
LOC: ER 08:47 → INTOOBSV 11:57 → ERHOLD 11:57
PROVIDERS: ADMIT Internal Medicine; ATTEND Internal Medicine
DX: I48.0 Paroxysmal atrial fibrillation (principal); I10 Essential (primary) hypertension; E78.2 Mixed hyperlipidemia; E11.9 Type 2 diabetes mellitus without complications; K21.9 Gastro-esophageal reflux disease without esophagitis; F32.A Depression, unspecified; K57.90 Diverticulosis of intestine, part unspecified, without perforation or abscess without bleeding; M85.80 Other specified disorders of bone density and structure, unspecified site; Z88.8 Allergy status to other drugs, medicaments and biological substances; Z20.822 Contact with and (suspected) exposure to COVID-19
CPT/HCPCS: 96365; 93005 ×2; 85025; 80048; 36415; 85610; 84484; 83880; 71045; 96375; 96372; 99285; 87811; J3475; J1650; G0378 ×2

== ENCOUNTER 2022-09-14 17:30 | Emergency (ER) | payer BC, OTHER ==
[2022-09-14] MEDS ORDERED: METOPROLOL TARTRATE 5 MG/5 ML INJ IV ONE ×2 (17:56→21:52)
[2022-09-14] MEDS ORDERED: NA CHLORIDE 0.9% 250 ML ONE (17:56)
[2022-09-14] MEDS ORDERED: MAGNESIUM SULFATE 1 gm IVPB 1 GM/100 ML BAG IV ONE (17:56)
[2022-09-14 17:58] LABS: Absolute Lymphocytes (CBC) 1.5 K/uL (0.7-4.9); Hematocrit 28.8 % (36.0-45.0); MCV 70.7 fL (80-100); MPV 9.3 fL (7.6-11.3); RBC Red Blood Cell Count 4.07 M/uL (3.86-4.86)
[2022-09-14 17:59] LABS: Protime INR 1.24
[2022-09-14] MEDS ORDERED: ADENOSINE 6 MG/ 2ML VIAL IV ONE (18:00)
[2022-09-14 18:09] LABS: Blood Morphology Comment NOTED (NOT SEEN); Hypochromasia 1+; Platelet Estimate ADEQ; White Blood Cell Scan OK (OK)
[2022-09-14 18:17] LABS: Potassium 3.9 mmol/L (3.5-5.1)
--- NOTE | 2022-09-14 18:18 | RAD REPORT ---
EXAM DESCRIPTION: RAD - Chest Single View - 09/14/2022 6:12 pm CLINICAL HISTORY: PALPITATIONS Chest pain. COMPARISON: Chest Single View dated 05/16/2022; Chest Single View dated 06/18/2021; Chest Pa And Lat (2 Views) dated 11/13/2019; Chest Pa And Lat (2 Views) dated 06/10/2019 FINDINGS: Portable technique limits examination quality. Mild pulmonary edema suspected. The heart is moderately enlarged. No displaced fractures. IMPRESSION: Mild CHF.
[2022-09-14 18:24] LABS: SARS-CoV-2 Antigen Rapid Res Negative (Negative)
[2022-09-14] MEDS ORDERED: AMIODARONE HCL 150 MG in D5W 100 ML IV STA (18:32)
[2022-09-14] MEDS ORDERED: AMIODARONE HCL 900 MG in Dextrose 5%-Water 482 ML IV SCH (18:33)
[2022-09-14] MEDS ORDERED: FAMOTIDINE 20 MG/2 ML VIAL IV ONE (20:46)
[2022-09-14] MEDS ORDERED: PANTOPRAZOLE 40 MG INJ ONE (20:46)
[2022-09-14] MEDS ORDERED: DIGOXIN 0.25 MG/ML AMP ONE (21:52)
[2022-09-14] MEDS ORDERED: METOPROLOL TAR 25 MG TAB ONE (22:05)
[2022-09-14 23:31] VITALS: BP 121/61; O2SAT 100
--- NOTE | 2022-09-18 13:16 | EKG ---
Test Date: 2022-09-14 Test Time: 17:50:03 Duplication Specialist: KATIE MEASUREMENT RESULTS: Intervals: Rate: 189 [place]: QRSD: 78 QT: 230 QTc: 407 [place]: P: NC: QRS: 78 T: 187 INTERPRETIVE STATEMENTS: Supraventricular tachycardia Marked ST abnormality, possible inferior subendocardial injury Abnormal ECG Compared to ECG 05/16/2022 10:41:12 ST (T wave) deviation now present Sinus tachycardia no longer present First degree AV block no longer present Electronically Signed On 09-18-22 13:09:09 CDT by Mike Vasquez
--- NOTE | 2022-09-18 13:16 | EKG ---
Test Date: 2022-09-14 Test Time: 18:18:34 Hydroelectric Plant Mechanical Engineer: WILLIE MEASUREMENT RESULTS: Intervals: Rate: 185 [place]: 136 QRSD: 78 QT: 260 QTc: 456 [place]: P: 59 [place]: 136 QRS: 75 T: 162 INTERPRETIVE STATEMENTS: Sinus tachycardia ST depression, consider subendocardial injury or digitalis effect Abnormal QRS-T angle, consider primary T wave abnormality Abnormal ECG Compared to ECG 09/14/2022 17:55:01 T-wave abnormality now present Supraventricular tachycardia no longer present Myocardial infarct finding no longer present ST (T wave) deviation still present Electronically Signed On 09-18-22 13:09:00 CDT by Mike Vasquez
--- NOTE | 2022-09-18 13:16 | EKG ---
Test Date: 2022-09-14 Test Time: 18:23:32 Pulp House Supervisor: WILLIE MEASUREMENT RESULTS: Intervals: Rate: 179 [place]: 132 QRSD: 78 QT: 260 QTc: 448 [place]: P: 54 [place]: 132 QRS: 80 T: 159 INTERPRETIVE STATEMENTS: Sinus tachycardia with junctional escape complexes Nonspecific ST and T wave abnormality Abnormal ECG Compared to ECG 09/14/2022 18:18:34 Junctional escape complex(es) now present T-wave abnormality no longer present ST (T wave) deviation still present Electronically Signed On 09-18-22 13:08:57 CDT by Mike Vasquez
--- NOTE | 2022-09-18 13:16 | EKG ---
Test Date: 2022-09-14 Test Time: 17:55:01 Travel Director: KATIE MEASUREMENT RESULTS: Intervals: Rate: 187 [place]: QRSD: 78 QT: 234 QTc: 413 [place]: P: AL: QRS: 81 T: 219 INTERPRETIVE STATEMENTS: Supraventricular tachycardia Septal infarct, age undetermined Marked ST abnormality, possible inferior subendocardial injury Abnormal ECG Compared to ECG 09/14/2022 17:50:03 Myocardial infarct finding now present ST (T wave) deviation still present Electronically Signed On 09-18-22 13:09:07 CDT by Mike Vasquez
--- NOTE | 2022-09-29 15:04 | ER ---
Nurse's Notes [facility] Name: Angelique Ayala Age: 72 yrs Sex: Female : 1950 Arrival Date: 09/14/2022 Time: 17:38 Bed 4 Private MD: Diagnosis: Hypotension, unspecified;Persistent atrial fibrillation-with rvr;Diastolic (congestive) heart failure;Weakness;Anemia, unspecified;Elevated white blood cell count;Supraventricular tachycardia Presentation: 09/14 17:38 Chief complaint: Patient states: Generalized weakness and SOB that has been ongoing ss since Sunday. Pt has a hx of AFib. Saw Dr. Miller on Sunday and reports that her BP was low and heart rate in 140's, but did not want to get admitted at that time. Coronavirus screen: Client denies travel out of the [place] in the last 14 days. Ebola Screen: Patient denies exposure to infectious person. Patient denies travel to an Ebola-affected area in the 21 days before illness onset. 17:38 Method Of Arrival: Ambulatory ss 17:58 Initial Sepsis Screen: Does the patient meet any 2 criteria? No. Patient's initial ss sepsis screen is negative. Does the patient have a suspected source of infection? No. Patient's initial sepsis screen is negative. Risk Assessment: Do you want to hurt yourself or someone else? Patient reports no desire to harm self or others. Onset of symptoms was September 12, 2022. 17:58 Acuity: CHAZ 1 ss Triage Assessment: 18:00 General: Appears distressed, uncomfortable, Behavior is calm, cooperative. Pain: db Complains of pain in chest. Neuro: Level of Consciousness is awake, alert, obeys commands, Oriented to person, place, time, situation. Cardiovascular: Reports palpitations, shortness of breath, Pulses are all present. Respiratory: No deficits noted. Airway is patent Respiratory effort is even, unlabored, Respiratory pattern is regular, symmetrical. Historical: - Allergies: 17:58 midazolam HCl; ss 17:58 Naproxen; ss 17:58 PROPOFOL; ss 17:58 Versed; ss - PMHx: 17:58 diabetes mellitus; GERD; Hypertensive disorder; Atrial fibrillation; ss - Immunization history:: Client reports receiving the 2nd dose of the Covid vaccine. - Social history:: Smoking status: Patient/guardian denies using tobacco, but has a distant history of tobacco abuse. - Family history:: not pertinent. - Hospitalizations: : No recent hospitalization is reported. Screenin:30 [facility] ED Fall Risk Assessment (Adult) History of falling in the last 3 months, db including since admission No falls in past 3 months (0 pts) Confusion or Disorientation No (0 pts) Intoxicated or Sedated No (0 pts) Impaired Gait No (0 pts) Mobility Assist Device Used No (0 pt) Altered Elimination No (0 pt) Score/Fall Risk Level 0 - 2 = Low Risk Oriented to surroundings, Maintained a safe environment. Abuse screen: Denies threats or abuse. Denies injuries from another. Nutritional screening: No deficits noted. Tuberculosis screening: No symptoms or risk factors identified. Assessment: 18:13 Reassessment: patient given Adenosine 6mg IVP hr down to 166 then back up to 177. EKG db done 1815. 1814 HR up to 186. 18:21 Reassessment: Patient is alert, oriented x 3, equal unlabored respirations, skin db warm/dry/pink. patient given Adenosine 12 mg IVP, Hr dropped down to 60's then back up to 180. Pt tolerated well. Dr. Kaplan at bedside and 3 RNs. 18:31 Reassessment: Eitane ip faxed to pharmacy. db 19:00 Reassessment: Patient and/or family updated on plan of care and expected duration. Pain db level reassessed. Patient is alert, oriented x 3, equal unlabored respirations, skin warm/dry/pink. Patient states feeling better. General: Appears in no apparent distress. comfortable. 20:30 Reassessment: Patient and/or family updated on plan of care and expected duration. Pain ha1 level reassessed. Patient is alert, oriented x 3, equal unlabored respirations, skin warm/dry/pink. elevated heart rate. awaiting for transfer. Vital Signs: 17:37 BP 101 / 65; Pulse 138; Resp 27; Pulse Ox 100% on R/A; db 17:38 BP 101 / 65; Pulse 190; Resp 33; Pulse Ox 100% on R/A; Weight 68.04 kg; Height 5 ft. 2 ss in. ; Pain 0/10; 18:11 BP 95 / 59; Pulse 187; Resp 18; Pulse Ox 97% on 2 lpm NC; db 18:18 BP 95 / 60; Pulse 178; Resp 24; Pulse Ox 100% on 2 lpm NC; db 18:30 BP 89 / 70; Pulse 181; Resp 24; Pulse Ox 99% on 2 lpm NC; db 19:50 BP 108 / 53; Pulse 138; Resp 23 S; Pulse Ox 100% on R/A; ha1 21:45 BP 110 / 53; Pulse 168; Resp 18 S; Pulse Ox 97% on 2 lpm NC; ha1 22:02 BP 121 / 61; Pulse 117; Resp 21 S; Pulse Ox 100% on 2 lpm NC; as6 17:38 Body Mass Index 27.44 (68.04 kg, 157.48 cm) ss 17:38 Pain Scale: Adult ss ED Course: 17:38 Patient arrived in ED. am2 17:38 Teofilo Kaplan MD is Attending Physician. rn 17:49 Liz Mariscal, PAVITHRA is Primary Nurse. db 17:58 Triage completed. ss 17:58 Arm band placed on right wrist. ss 18:00 Inserted saline lock: 20 gauge in right antecubital area, using aseptic technique. db Blood collected. 18:10 Inserted saline lock: 22 gauge in left wrist, using aseptic technique. db 18:14 XRAY Chest (1 view) In Process Unspecified. EDMS 18:30 Patient has correct armband on for positive identification. Placed in gown. Bed in low db position. Side rails up X 1. Client placed on continuous cardiac and pulse oximetry monitoring. NIBP monitoring applied. Warm blanket given. 19:06 Attending Physician role handed off by Teofilo Kaplan MD [facility] 19:06 Yousuf Jansen MD is Attending Physician. [facility] 20:18 CALLED [facility] TO TRANSFER WAS TOLD WAS FULL WOULD CALL BACK DID NOT RECEIVE CALL BACK , eb CALLED BACK AT 194 PHONE CONTINUED TO RING NO ANSWER \T\ 2020 LISA FROM [facility] CALLED BACK ,BUT I ALREADY HAD SECURED BED AT [facility] ,SHE APOLOGIZED FOR NOT ANSWER STATED THEY HAD A HIGH CALL VOLUME. 20:40 Valente cath inserted, using sterile technique, 16 Fr., by me, balloon inflated, to ha1 gravity drainage. 22:03 No provider procedures requiring assistance completed. Patient transferred, IV remains as6 in place. Administered Medications: 17:50 Drug: Magnesium Sulfate IVPB 1 grams Route: IVPB; Infused Over: 1 hrs; Site: right db antecubital; 18:50 Follow up: IV Status: Completed infusion; IV Intake: 100ml db 17:50 Drug: NS 0.9% IV 250 ml Route: IV; Rate: 1 bolus; Site: right antecubital; db 22:04 Follow up: Response: No adverse reaction; IV Status: Completed infusion; IV Intake: as6 250ml 18:13 Drug: Adenocard IVP 6 mg Route: IVP; Site: right antecubital; db 19:15 Follow up: Response: No adverse reaction db 18:21 Drug: Adenocard IVP 12 mg Route: IVP; Site: right antecubital; db 19:15 Follow up: Response: No adverse reaction db 18:52 Drug: amiodarone IVPB 150 mg Volume: 100 ml; Route: IVPB; Infused Over: 10 mins; Site: db right antecubital; 19:11 Follow up: Response: No adverse reaction; IV Status: Completed infusion; IV Intake: db 103ml 19:06 Not Given (Physician Discretion): Metoprolol IVP 5 mg IVP once; Hold for SBP <100 or HR db <60. 19:11 Drug: amiodarone IVPB 900 mg, D5W IV 500 ml Route: IVPB; Rate: 1 mg/min; Site: right db antecubital; 22:04 Follow up: Response: No adverse reaction; IV Status: Infusion continued upon transfer as6 20:40 Drug: Pantoprazole IVP 40 mg Route: IVP; Site: right hand; ha1 22:04 Follow up: Response: No adverse reaction as6 20:45 Drug: Famotidine IVP 20 mg Route: IVP; Site: left hand; ha1 22:04 Follow up: Response: No adverse reaction as6 21:50 Drug: Digoxin IVP 0.5 mg Route: IVP; Site: left wrist; as6 22:04 Follow up: Response: No adverse reaction as6 21:50 Drug: Metoprolol IVP 2.5 mg Route: IVP; Site: left wrist; as6 22:05 Follow up: Response: No adverse reaction as6 21:55 Drug: Metoprolol IVP 2.5 mg Route: IVP; Site: left wrist; as6 22:05 Follow up: Response: No adverse reaction as6 22:00 Drug: Metoprolol PO 25 mg Route: PO; as6 22:05 Follow up: Response: No adverse reaction as6 Medication: 22:03 VIS not applicable for this client. as6 Intake: 18:50 IV: 100ml; Total: 100ml. db 19:11 IV: 103ml; Total: 203ml. db 22:04 IV: 250ml; Total: 453ml. as6 Outcome: 19:19 ER care complete, transfer ordered by . [place] 22:03 Transferred by ground EMS to [facility], Transfer form completed. as6 X-rays sent w/ patient. 22:03 Condition: stable 22:03 Instructed on the need for transfer. 22:12 Patient left the ED. as6 Signatures: Dispatcher [employer] EDMS Yousuf Jansen MD MD cha Nieto, Roman, MD MD rn Smirch, Shelby, RN RN Zeina Osorio am2 Tawanna Bazzi Ashby, RN RN as6 Radha Allen RN RN ha1 Liz Mariscal, PAVITHRA RN db Corrections: (The following items were deleted from the chart) 19:20 18:18 BP 95 / 60; Pulse 185bpm; Resp 24bpm; Pulse Ox 100% RA; db db 21:04 21:04 Pantoprazole IVP 40 mg IVP in right hand ha1 ha1
--- NOTE | 2022-09-29 15:04 | EDPHYS ---
Physician Documentation [facility] Name: Angelique Ayala Age: 72 yrs Sex: Female : 1950 Arrival Date: 09/14/2022 Time: 17:38 Bed 4 Private MD: ED Physician Yousuf Jansen HPI: 09/14 18:03 This 72 yrs old Female presents to ER via Ambulatory with complaints of palpitations. rn 18:03 The patient presents with a history of heart racing. Context: The symptoms occur at rn rest. Onset: The symptoms/episode began/occurred 2 day(s) ago. Duration: The patient or guardian reports a single episode, that is still ongoing. Modifying factors: The symptoms are aggravated by nothing. The symptoms are alleviated by nothing. Associated signs and symptoms: Pertinent positives: lightheadedness, SOB, Pertinent negatives: chest pain. Severity of symptoms: At their worst the symptoms were moderate in the emergency department the symptoms are unchanged. The patient has experienced a previous episode. The patient has been recently seen by a physician:. Pt reports palpitations that began 2-3 days ago, has hx of afib. No fever. Taking metoprolol/eliquis/lasix. Seen by PCP recently and told to come here, but patient did not want to at the time. Became more sob so came in today. . Historical: - Allergies: 17:58 midazolam HCl; ss 17:58 Naproxen; ss 17:58 PROPOFOL; ss 17:58 Versed; ss - PMHx: 17:58 diabetes mellitus; GERD; Hypertensive disorder; Atrial fibrillation; ss - Immunization history:: Client reports receiving the 2nd dose of the Covid vaccine. - Social history:: Smoking status: Patient/guardian denies using tobacco, but has a distant history of tobacco abuse. - Family history:: not pertinent. - Hospitalizations: : No recent hospitalization is reported. ROS: 18:03 Constitutional: Negative for fever, chills, and weight loss, Eyes: Negative for injury, rn pain, redness, and discharge, Neck: Negative for injury, pain, and swelling, Cardiovascular: + palpitations Respiratory: + sob Abdomen/GI: Negative for abdominal pain, nausea, vomiting, diarrhea, and constipation, MS/Extremity: Negative for injury and deformity, Skin: Negative for injury, rash, and discoloration, Neuro: Negative for headache, weakness, numbness, tingling, and seizure. Exam: 18:03 Constitutional: This is a well developed, well nourished patient who is awake, alert, rn mild tachypnea Head/Face: Normocephalic, atraumatic. Cardiovascular: Tachycardic, regular Respiratory: + mild to moderate tachypnea Abdomen/GI: soft, non-tender Skin: Warm, dry MS/ Extremity: Pulses equal, no cyanosis. Neuro: Awake and alert, GCS 15 19:40 ECG was reviewed by the Attending Physician. lav[place] 19:43 Abdomen/GI: Rectal exam: is unremarkable, rectal tone normal, Stool: not avaliable, lavonne hemorrhoid(s), are not appreciated, mass, is not appreciated, swelling, is not appreciated, tenderness, is not appreciated, the exam is chaperoned by a family member, Liver: no appreciated palpable abnormalities, Hernia: not appreciated. Vital Signs: 17:37 BP 101 / 65; Pulse 138; Resp 27; Pulse Ox 100% on R/A; db 17:38 BP 101 / 65; Pulse 190; Resp 33; Pulse Ox 100% on R/A; Weight 68.04 kg; Height 5 ft. 2 ss in. ; Pain 0/10; 18:11 BP 95 / 59; Pulse 187; Resp 18; Pulse Ox 97% on 2 lpm NC; db 18:18 BP 95 / 60; Pulse 178; Resp 24; Pulse Ox 100% on 2 lpm NC; db 18:30 BP 89 / 70; Pulse 181; Resp 24; Pulse Ox 99% on 2 lpm NC; db 19:50 BP 108 / 53; Pulse 138; Resp 23 S; Pulse Ox 100% on R/A; ha1 21:45 BP 110 / 53; Pulse 168; Resp 18 S; Pulse Ox 97% on 2 lpm NC; ha1 22:02 BP 121 / 61; Pulse 117; Resp 21 S; Pulse Ox 100% on 2 lpm NC; as6 17:38 Body Mass Index 27.44 (68.04 kg, 157.48 cm) ss 17:38 Pain Scale: Adult ss MDM: 17:38 Patient medically screened. rn 18:08 ED course: 2 ECGs both show SVT, not afib, very regular, and HR 190s. rn 18:46 Differential diagnosis: arrythmia, dehydration, stress disorder. Data reviewed: vital rn signs, nurses notes, lab test result(s), EKG, and as a result, I will admit patient. Counseling: I had a detailed discussion with the patient and/or guardian regarding: the historical points, exam findings, and any diagnostic results supporting the discharge/admit diagnosis, lab results, radiology results, the need for further work-up and treatment in the hospital. Response to treatment: There is no appreciated change of the patient's symptoms at this time. ED course: Pt with transient responses to vagal maneuvers as well as adenosine 6mg and 12 mg. with 12mg adenosine had very long pauses and HR down to 20s with near syncopal episode. Had discussion with patient, decided not to try adenosine again, and given low BP, started amiodarone. . 19:13 Consideration of Admission/Observation Patient was admitted/placed on observation. lavonne Escalation of care including admission/observation considered. Management of patient was discussed with the following: Financial Retirement Plan Specialist: cardio , ccu bed. I considered the following discharge prescriptions or medication management in the emergency department Medications were administered in the Emergency Department. See MAR. Test considered but Not performed: CT: ct chest. Care significantly affected by the following chronic conditions: Diabetes, Hypertension, gerd, a fib. 19:15 Historians other than the Patient: Family Member: . lavonne 09/14 17:39 Order name: Basic Metabolic Panel; Complete Time: 18:25 rn 09/14 17:39 Order name: CBC with Diff; Complete Time: 18:25 rn 09/14 17:39 Order name: NT PRO-BNP; Complete Time: 18:25 rn 09/14 17:39 Order name: PT-INR; Complete Time: 18:25 rn 09/14 17:39 Order name: Troponin HS; Complete Time: 18:25 rn 09/14 17:39 Order name: SARS RAPID; Complete Time: 18:25 rn 09/14 18:10 Order name: CBC Smear Scan; Complete Time: 18:25 EDID 09/14 17:39 Order name: XRAY Chest (1 view); Complete Time: 18:25 rn 09/14 17:39 Order name: EKG; Complete Time: 17:40 rn 09/14 17:39 Order name: Cardiac monitoring; Complete Time: 18:20 rn 09/14 17:39 Order name: EKG - Nurse/Tech; Complete Time: 18:20 rn 09/14 17:39 Order name: IV Saline Lock; Complete Time: 19:01 rn 09/14 17:39 Order name: Labs collected and sent; Complete Time: 19: rn 09/14 17:39 Order name: O2 Per Protocol; Complete Time: 19:01 rn 09/14 17:39 Order name: O2 Sat Monitoring; Complete Time: 18:20 rn 09/14 19:12 Order name: Valente; Complete Time: 21:03 lavonne EC:40 Rate is 187 beats/min. Rhythm is regular. QRS [place] is Normal. MO interval is normal. lavonne QRS interval is normal. QT interval is normal. No Q waves. T waves are Normal. Clinical impression: SVT. Interpreted by me. Reviewed by me. Administered Medications: 17:50 Drug: Magnesium Sulfate IVPB 1 grams Route: IVPB; Infused Over: 1 hrs; Site: right db antecubital; 18:50 Follow up: IV Status: Completed infusion; IV Intake: 100ml db 17:50 Drug: NS 0.9% IV 250 ml Route: IV; Rate: 1 bolus; Site: right antecubital; db 22:04 Follow up: Response: No adverse reaction; IV Status: Completed infusion; IV Intake: as6 250ml 18:13 Drug: Adenocard IVP 6 mg Route: IVP; Site: right antecubital; db 19:15 Follow up: Response: No adverse reaction db 18:21 Drug: Adenocard IVP 12 mg Route: IVP; Site: right antecubital; db 19:15 Follow up: Response: No adverse reaction db 18:52 Drug: amiodarone IVPB 150 mg Volume: 100 ml; Route: IVPB; Infused Over: 10 mins; Site: db right antecubital; 19:11 Follow up: Response: No adverse reaction; IV Status: Completed infusion; IV Intake: db 103ml 19:06 Not Given (Physician Discretion): Metoprolol IVP 5 mg IVP once; Hold for SBP <100 or HR db <60. 19:11 Drug: amiodarone IVPB 900 mg, D5W IV 500 ml Route: IVPB; Rate: 1 mg/min; Site: right db antecubital; 22:04 Follow up: Response: No adverse reaction; IV Status: Infusion continued upon transfer as6 20:40 Drug: Pantoprazole IVP 40 mg Route: IVP; Site: right hand; ha1 22:04 Follow up: Response: No adverse reaction as6 20:45 Drug: Famotidine IVP 20 mg Route: IVP; Site: left hand; ha1 22:04 Follow up: Response: No adverse reaction as6 21:50 Drug: Digoxin IVP 0.5 mg Route: IVP; Site: left wrist; as6 22:04 Follow up: Response: No adverse reaction as6 21:50 Drug: Metoprolol IVP 2.5 mg Route: IVP; Site: left wrist; as6 22:05 Follow up: Response: No adverse reaction as6 21:55 Drug: Metoprolol IVP 2.5 mg Route: IVP; Site: left wrist; as6 22:05 Follow up: Response: No adverse reaction as6 22:00 Drug: Metoprolol PO 25 mg Route: PO; as6 22:05 Follow up: Response: No adverse reaction as6 Disposition Summary: 09/14/22 19:19 Transfer Ordered Transfer Location: Other Acute Care Facility [place] Reason: Higher level of care lav[place] Condition: Fair [place] Problem: new lavonne Symptoms: have improved lavonne Accepting Physician: to [facility](09/14/22 22:12) as6 Diagnosis - Hypotension, unspecified [place] - Persistent atrial fibrillation - with rvr lavonne - Diastolic (congestive) heart failure lavonne - Weakness lavonne - Anemia, unspecified lavonne - Elevated white blood cell count lav[place] - Supraventricular tachycardia lavonne Forms: - Medication Reconciliation Form lavonne - SBAR form lavonne Signatures: Dispatcher [employer] Yousuf Rosen MD MD cha Nieto, Roman, MD MD rn Smirch, Shelby, RN RN ss Aldo Patel RN RN as6 Radha Allen RN RN ha1 Liz Mariscal RN RN db Corrections: (The following items were deleted from the chart) 19:26 19:19 to acute care hospital [place] lav[place] 19:45 19:26 to acute [facility] [place] lav[place] 22:12 19:45 to acute care hospital [place] as6
== END 2022-09-14 22:12 ==
LOC: ER 17:30
DX: I95.9 Hypotension, unspecified (principal); I48.19 Other persistent atrial fibrillation; I50.30 Unspecified diastolic (congestive) heart failure; R53.1 Weakness; D64.9 Anemia, unspecified; D72.829 Elevated white blood cell count, unspecified; I47.1 Supraventricular tachycardia; I10 Essential (primary) hypertension; Z88.5 Allergy status to narcotic agent; Z88.8 Allergy status to other drugs, medicaments and biological substances
CPT/HCPCS: 36415; 51702; 71045; 80048; 83880; 84484; 85025; 85610; 87811; 93005; 99291; C9113; J0153; J0282; J1160; J3475; J7050

== ENCOUNTER 2022-12-13 14:20 | Inpatient (IN) | payer BC ==
--- OUTSIDE RECORDS SUMMARY | 2022-12-13 14:24 | XMS REPORT | Continuity of Care Document ---
:[address] [facility] t Address [address] [place] [address] Care Team Providers Name Role Phone Aníbal Miller Primary Care Physician Doctor Unassigned, [place] Attending Clinician Unavailable Min ARSHAD, Deann Joy Attending Clinician Unavailable Arpan Silver MD Attending Clinician Gloria Solomon MD Attending Clinician [phone] Yvrose Garcia MD Attending Clinician YVROSE GARCIA Attending Clinician Unavailable Joseph JEFFERY, Gloria Clark Admitting Clinician [phone] GLORIA SOLOMON Admitting Clinician Unavailable Payers Payer Name Policy Type Policy Number Effective Date Expiration Date S ource Problems Condition Condition Condition Status Onset Resolution Last Treating Co mments Source Name Details Category Date Date Treatment Clinician Date Atrial Atrial Disease Active Univers fibrillati fibrillati 3-10 it y of on with on with 00:00: [place] rapid rapid 00 Medical ventricula ventricula Br anch r response r response Obesity Obesity Disease Active Univers (BMI (BMI 4-05 ity of 30-39.9) 30-39.9) 00:00: [place] 00 Medical Branch Allergies, Adverse Reactions, Alerts Allergy Allergy Status Severity Reaction(s) Onset Inactive Treating Comm ents Source Name Type Date Date Clinician Statins- Propensi Active Other - See Muscle U nivers Hmg-Coa ty to comments 3-10 breakdown ity of Reductas adverse 00:00: [place] e reaction 00 Medical Inhibito s Branch rs STATINS- Drug Active Other-Cmnt Univ ers HMG-COA Class 3-10 ity of REDUCTAS 00:00: [place] E 00 Medical INHIBITO Branch RS MIDAZOLA DRUG Active High Other-Cmnt Univ ers M HCL INGREDI 12-29 ity of 00:00: [place] 00 Medical Branch NAPROXEN DRUG Active Med Hives Univers INGREDI 12-29 ity of 00:00: [place] 00 Medical Branch Naproxen Propensi Active Hives Univer s ty to 12-29 ity of adverse 00:00: [place] reaction 00 Medical s to Branch drug Midazola Propensi Active Other - See Heart U nivers m Hcl ty to comments 12-29 rate ity of adverse 00:00: drops [place] reaction 00 Medical s to Branch drug Social History Social Habit Start Date Stop Date Quantity Comments Source History of tobacco Cigarette Smoker University of use [place] [facility] History SDOH Social Unive rsity of [facility] Med ical Together Branch History SDOH Social Unive rsity of [facility] Medical Branch History SDOH Social Unive rsity of [facility] Medical Membership Branch History SDOH Social Unive rsity of [facility] Medical Meetings Branch Exposure to 2022-09-05 2022-09-15 Not sure University of SARS-CoV-2 (event) 00:00:00 04:04:00 [place] [facility] Tobacco use and 2022-09-15 2022-09-15 Smokeless Universit y of exposure 00:00:00 00:00:00 tobacco non-user [facility] dical Branch Alcohol intake 2022-09-15 2022-09-15 0 /d University of 00:00:00 00:00:00 [place] [facility] History SDOH 2022-09-15 2022-09-15 1 University o f Alcohol Frequency 00:00:00 00:00:00 [facility] edical Branch History SDOH 2022-09-15 2022-09-15 0 University o f Alcohol Std Drinks 00:00:00 00:00:00 [place] [facility] History SDOH 2022-09-15 2022-09-15 1 University o f Alcohol Binge 00:00:00 00:00:00 [place] Medic al Branch History SDOH Social 2022-09-15 2022-09-15 5 Unive rsity of Connections Phone 00:00:00 00:00:00 [place] M edical Branch History SDOH Social 2022-09-15 2022-09-15 4 Unive rsity of Connections Living 00:00:00 00:00:00 [place] [facility] History SDOH 2022-09-15 2022-09-15 0 University o f Physical Activity 00:00:00 00:00:00 [facility] edical DPW Branch History SDOH 2022-09-15 2022-09-15 0 University o f Physical Activity 00:00:00 00:00:00 [facility] edical MPS Branch History SDOH 2022-09-15 2022-09-15 5 University o f Financial 00:00:00 00:00:00 [place] [facility] History SDOH Food 2022-09-15 2022-09-15 1 Univers ity of Worry 00:00:00 00:00:00 [place] [facility] History SDOH Food 2022-09-15 2022-09-15 1 Univers ity of Scarcity 00:00:00 00:00:00 [place] [facility] History SDOH 2022-09-15 2022-09-15 2 University o f Transport Med 00:00:00 00:00:00 [place] Medic al Branch History SDKS 2022-09-15 2022-09-15 2 University o f Transport Non-Med 00:00:00 00:00:00 [facility] Sex Assigned At [birth year] Universit y of 00:00:00 00:00:00 [facility] Smoking Status Start Date Stop Date Source Ex-smoker 2022-09-15 00:00:00 2022-09-15 00:00:00 [facility] Medical Branch Medications Ordered Filled Start Stop Current Ordering Indication Dosage Frequency Signature Comments Components Source Medication Medication Date Date Medication? Clinician (SIG) Name Name vitamin B-6 Yes 500mg Take 500 U nivers 500 mg 3-12 mg by ity of tablet 18:17: mouth [place] 46 daily. Medical Branch multivitami Yes 1{tbl} Take 1 Un mateusz n, 3-12 tablet by ity of tx-minerals 18:17: mouth [place] (COMPLETE daily. Medical MULTIVITAMI Branch N) tablet vitamin C 3-0 Yes 1000mg Take 1,000 Univers with jaleesa 3-12 mg by ity of hips 18:17: mouth [place] (VITAMIN C) daily. Medica l 1,000 mg Branch tablet metFORMIN 2023-0 Yes 1000mg Take 2 Univ ers 500 mg 24 3-12 tablets by ity of hr tablet 18:17: mouth in [place] [address] the Medical morning Branch and 2 tablets in the evening. Take with meals. gabapentin 2023-0 Yes 300mg Take 1 Univ ers 300 mg 3-12 capsule by ity of capsule 18:17: mouth in [place] [address] the Medical morning Branch and 1 capsule at noon and 1 capsule in the evening. SERTraline 2023-0 Yes 200mg Take 2 Univ ers 100 mg 3-12 tablets by ity of tablet 18:17: mouth in [place] [address] the Medical morning. Branch famotidine 3-0 Yes 40mg Take 40 mg U nivers 40 mg 3-12 by mouth ity of tablet 18:17: daily. [place] [address] Medical Branch metoprolol 3-0 Yes 50mg Take 1 Unive rs tartrate 3-12 tablet by ity of (LOPRESSOR) 18:17: mouth in [place] 50 mg 46 the Medical tablet morning Branch and 1 tablet in the evening. ARIPiprazol 3-0 Yes 5mg Take 1 Univ ers e 5 mg 3-12 tablet by ity of tablet 18:17: mouth in [place] [address] the Medical morning. Branch magnesium 2023-0 Yes 400mg Take 400 Uni vers oxide 400 3-12 mg by ity of mg 18:17: mouth in [place] magnesium 46 the Medical Tab morning Branch and 400 mg at noon and 400 mg in the evening. apixaban 5 2023-0 Yes 5mg Take 1 Unive rs mg tablet 3-12 tablet by ity o f 18:17: mouth in [place] [address] the Medical morning Branch and 1 tablet in the evening. rOPINIRole 2023-0 Yes 1mg Take 1 Unive rs 1 mg tablet 3-12 tablet by ity of 18:17: mouth at [place] [address] bedtime. Medical Branch vitamin B-6 2023-0 Yes 500mg Take 500 U nivers 500 mg 3-12 mg by ity of tablet 18:17: mouth [place] 46 daily. Medical Branch multivitami 2023-0 Yes 1{tbl} Take 1 Un mateusz n, 3-12 tablet by ity of tx-minerals 18:17: mouth [place] (COMPLETE 46 daily. Medical MULTIVITAMI Branch N) tablet vitamin C 2023-0 Yes 1000mg Take 1,000 Univers with jaleesa 3-12 mg by ity of hips 18:17: mouth [place] (VITAMIN C) 46 daily. Medica l 1,000 mg Branch tablet metFORMIN 2023-0 Yes 1000mg Take 2 Univ ers 500 mg 24 3-12 tablets by ity of hr tablet 18:17: mouth in [place] [address] the Medical morning Branch and 2 tablets in the evening. Take with meals. gabapentin 2023-0 Yes 300mg Take 1 Univ ers 300 mg 3-12 capsule by ity of capsule 18:17: mouth in [place] [address] the Medical morning Branch and 1 capsule at noon and 1 capsule in the evening. SERTraline 2023-0 Yes 200mg Take 2 Univ ers 100 mg 3-12 tablets by ity of tablet 18:17: mouth in [place] [address] the Medical morning. Branch famotidine 3-0 Yes 40mg Take 40 mg U nivers 40 mg 3-12 by mouth ity of tablet 18:17: daily. [place] [address] Medical Branch metoprolol 3-0 Yes 50mg Take 1 Unive rs tartrate 3-12 tablet by ity of (LOPRESSOR) 18:17: mouth in [place] 50 mg 46 the Medical tablet morning Branch and 1 tablet in the evening. ARIPiprazol 2023-0 Yes 5mg Take 1 Univ ers e 5 mg 3-12 tablet by ity of tablet 18:17: mouth in [place] [address] the Medical morning. Branch magnesium 2023-0 Yes 400mg Take 400 Uni vers oxide 400 3-12 mg by ity of mg 18:17: mouth in [place] magnesium the Medical Tab morning Branch and 400 mg at noon and 400 mg in the evening. apixaban 5 2023-0 Yes 5mg Take 1 Unive rs mg tablet 3-12 tablet by ity o f 18:17: mouth in [place] [address] the Medical morning Branch and 1 tablet in the evening. rOPINIRole 2023-0 Yes 1mg Take 1 Unive rs 1 mg tablet 3-12 tablet by ity of 18:17: mouth at [place] [address] bedtime. Medical Branch vitamin B-6 3-0 Yes 500mg Take 500 U nivers 500 mg 3-12 mg by ity of tablet 18:17: mouth [place] [address] daily. Medical Branch multivitami 2023-0 Yes 1{tbl} Take 1 Un mateusz n, 3-12 tablet by ity of tx-minerals 18:17: mouth [place] (COMPLETE 46 daily. Medical MULTIVITAMI Branch N) tablet vitamin C 3-0 Yes 1000mg Take 1,000 Univers with jaleesa 3-12 mg by ity of hips 18:17: mouth [place] (VITAMIN C) 46 daily. Medica l 1,000 mg Branch tablet metFORMIN 3-0 Yes 1000mg Take 2 Univ ers 500 mg 24 3-12 tablets by ity of hr tablet 18:17: mouth in [place] [address] the Medical morning Branch and 2 tablets in the evening. Take with meals. gabapentin 2023-0 Yes 300mg Take 1 Univ ers 300 mg 3-12 capsule by ity of capsule 18:17: mouth in [place] [address] the Medical morning Branch and 1 capsule at noon and 1 capsule in the evening. SERTraline 2023-0 Yes 200mg Take 2 Univ ers 100 mg 3-12 tablets by ity of tablet 18:17: mouth in [place] [address] the Medical morning. Branch famotidine 3-0 Yes 40mg Take 40 mg U nivers 40 mg 3-12 by mouth ity of tablet 18:17: daily. [place] [address] Medical Branch metoprolol 2023-0 Yes 50mg Take 1 Unive rs tartrate 3-12 tablet by ity of (LOPRESSOR) 18:17: mouth in [place] 50 mg 46 the Medical tablet morning Branch and 1 tablet in the evening. ARIPiprazol 2023-0 Yes 5mg Take 1 Univ ers e 5 mg 3-12 tablet by ity of tablet 18:17: mouth in [place] [address] the Medical morning. Branch magnesium 2023-0 Yes 400mg Take 400 Uni vers oxide 400 3-12 mg by ity of mg 18:17: mouth in [place] magnesium 46 the Medical Tab morning Branch and 400 mg at noon and 400 mg in the evening. apixaban 5 2023-0 Yes 5mg Take 1 Unive rs mg tablet 3-12 tablet by ity o f 18:17: mouth in [place] 46 the Medical morning Branch and 1 tablet in the evening. rOPINIRole Yes 1mg Take 1 Unive rs 1 mg tablet 3-12 tablet by ity of 18:17: mouth at [place] 46 bedtime. Medical Branch KCL Yes 20meq 20 mEq, Univers (KLOR-CON 3-12 Oral, ity of M20) tablet 16:00: DAILY, [place] 20 mEq 00 First dose Medical on [facility] 09/17/22 at 1100, Until Discontinu ed, Routine KCL 2022- No 40meq 40 mEq, Univers (KLOR-CON 3-12 -12 Oral, ity of M20) tablet 12:45: 13:25 ONCE, 1 [place] 40 mEq 00 :00 dose, On [facility] 09/17/22 at 0745, Routine furosemide 2022-2022- No 40mg Take 1 Univ ers (LASIX) 40 09-1712 tablet by ity of mg tablet 09:44: 00:00 mouth [place] 58 :00 every Medical morning Branch and evening. apixaban Yes 5mg 5 mg, Univers (ELIQUIS) 3-12 Oral, BID, ity of tablet 5 mg 02:00: First dose [place] 00 on [facility] 09/16/22 at Branch 2000, Until Discontinu ed, Routine
Indicatio ns: Non-Valvul ar Atrial Fibrillati on furosemide 0 2022- Yes [id number] 60mg Take 3 Univers 20 mg 09-17-11 tablets by ity of tablet 00:00: 04:59 mouth [place] 00 :00 every Medical morning Branch and evening for 90 days. furosemide 2022-0 2022- Yes [id number] 60mg Take 3 Univers 20 mg 09-17-11 tablets by ity of tablet 00:00: 04:59 mouth [place] 00 :00 every Medical morning Branch and evening for 90 days. furosemide 2022-0 2022- Yes [id number] 60mg Take 3 Univers 20 mg 09-17-11 tablets by ity of tablet 00:00: 04:59 mouth [place] 00 :00 every Medical morning Branch and evening for 90 days. KCL 20 mEq 0 2022- Yes [id number] 20meq Take 1 Univers tablet 3-12 03-20 tablet by ity of 00:00: 04:59 mouth in [place] 00 :00 the Medical morning Branch for 7 days. KCL 20 mEq 2022- Yes [id number] 20meq Take 1 Univers tablet 09-17-20 tablet by ity of 00:00: 04:59 mouth in [place] 00 :00 the Medical morning Branch for 7 days. furosemide 0 Yes 60mg 60 mg, Unive rs (LASIX) 09-16 Oral, ity of tablet 60 15:00: QAM+PM, [place] mg 00 First dose Medical on [facility] 09/16/22 at 0900, Until Discontinu ed, Routine magnesium 2022- No 4g 4 g, IV Univ ers sulfate in 09-16 Piggyback, it y of water 4 13:30: 18:00 ONCE, 1 [place] gram/50 mL 00 :00 dose, On Medic al (8 %) IV [facility] Piggyback 4 09/16/22 at g 0730, Routine omeprazole 2022- No 40mg Take 1 Univ ers 40 mg 09-16 capsule by ity of capsule 09:11: 00:00 mouth in [place] 14 :00 the Medical morning. Dayhoit famotidine Yes 40mg 40 mg, Unive rs (PEPCID) 09-16 Oral, QHS, ity o f tablet 40 03:00: First dose [place] mg [address] [facility] 09/15/22 at Branch 2100, Until Discontinu ed, Routine furosemide 2022- No 60mg 60 mg, Univ ers (LASIX) 09-16 Slow IV ity of injection 02:00: 14:09 Push, [place] 60 mg 00 :01 Q12H, Medical First dose Branch (after last modificati on) on Sun09/15/22 at 2000, Until Discontinu ed, Routine sulfur 2022- No [id number] 5mL 5 mL, Un mateusz hexafluorid 09-15 9109 Intravenou i ty of e microsphr 15:23: 15:23 s, ONCE, 1 [place] (LUMASON) 00 :00 dose, On Medica l injection 5 Fri Branch mL 09/15/22 at 0923, Routine
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 Restricted medication : YVROSE GARCIA SERTraline Yes 200mg 200 mg, Uni vers (ZOLOFT) 3-10 Oral, ity of tablet 200 15:00: DAILY, [place] mg 00 First dose Medical on Sun Branch 09/15/22 at 0900, Until Discontinu ed, Routine ARIPiprazol Yes 5mg 5 mg, Unive rs e (ABILIFY) 3-10 Oral, ity of tablet 5 mg 15:00: DAILY, [place] 00 First dose Medical on Sun Branch 09/15/22 at 0900, Until Discontinu ed, Routine iron 2022- Yes 200mg 200 mg, IV Unive rs sucrose 3-10 03-15 Infusion, ity of (VENOFER) 15:00: 13:59 DAILY, [place] 200 mg in 00 :00 Administer Medi meli NaCl 0.9% over 1.5 Branch (NS) 100 mL Hours, infusion First dose on Sun09/15/22 at 0900, For 5 doses metoprolol Yes 50mg 50 mg, Unive rs tartrate 3-10 Oral, BID, ity o f (LOPRESSOR) 14:00: First dose [place] tablet 50 00 (after Medical mg last Branch modificati on) on Sun09/15/22 at 0800, Until Discontinu ed, Routine Sliding Yes Subcutaneo Univ ers Scale 3-10 us, TID ity of Insulin - 14:00: MEALS+HS, [place] Lispro 00 First dose Medical (HumaLOG) + on Sun Branch [facility] 09/15/22 at Testing 0800, Until Discontinu ed, Routine gabapentin Yes 300mg 300 mg, Uni vers (NEURONTIN) 3-10 Oral, TID, it y of capsule 300 14:00: First dose [place] mg 00 on Sun Medical 09/15/22 at Branch 0800, Until Discontinu ed, Routine amiodarone 2022- No .5mg/mi 0.5 mg/min Univers (CORDARONE) 09-15 03-11 n (16.6667 ity of 900 mg in 07:45: 01:07 mL/hr, [place] D5W 500 mL 00 :21 rounded to Med ical infusion 16.67 Branch mL/hr), IV Infusion, CONTINUOUS , Starting on Sun09/15/22 at 0145
Ob tain/docum ent heart rate, rhythm, & blood pressure q15 minutes x 4, q30 minutes x2, q1 hour x 3, then q4 hours when stable. All amiodarone infusions must be administer ed using a 0.22 micron in line filter. Administer via central line if available. Amiodarone infusions with concentrat ions > 2 mg/mL must be administer ed via central line.
HEPARIN 2022- No 60U/kg 4,764 Univer s SODIUM 09-15-10 Units (60 ity of (PORCINE) 06:30: 07:47 Units/kg [place] 1,000 00 :00 ?79.4 kg), Medical UNIT/ML IV Push, Branch BOLUS ACS ONCE, 1 ORDER SET dose, On Sun09/15/22 at 0030, SEGUN furosemide 2022- No 40mg 40 mg, Univ ers (LASIX) 09-15-10 Slow IV ity of injection 06:30: 17:16 Push, [place] 40 mg 00 :19 Q12H, Medical First dose Branch on Sun09/15/22 at 0030, Until Discontinu ed, Routine heparin 2022- No 0U/h 0-2,150 Univer s 25,000 09-15 03-11 Units/hr ity of Units/250 06:18: 14:42 (0-21.5 [place] mL 51 :20 mL/hr), IV Medical (Premixed Infusion, Branc h Bag) in TITRATE, 0.45 % NS Parameters in Admin. Instr., Starting on Sun09/15/22 at 0018
In itiate dosing:&nb sp; & nbsp;&nbsp ; -Patient 83 kg or under: Patient actual weight not available. (Calculate d dose at 12 units/kg/h r) &a mp;nbsp;&n bsp; -Patient over 83 k,000 units/hr&n bsp;DO NOT Exceed the MAXIMUM 1,000 units/hr for initiation of heparin drip.&nbsp ; CAU TION - If LMWH given in ER, AVOID bolus and start next dose/drip 12 hrs after ER dosage.&nb sp; M ust program rate using programmab le infusion pump.&nbsp ; Carmen ck with the ordering provider first prior to any administra tion should the patient be on existing/a dditional anticoagul ant therapy. Rang e, Dosing and Testing: &nbs p;FOR [facility], [facility], AND [facility] ONLY &nbs p; - aPTT < 35: & nbsp;Bolus 5000 units, increase rate 300 units/hr&n bsp; - aPTT 35-44:&nbs p; Abhijeet rowena 3000 units, increase rate 200 units/hr&n bsp; - aPTT 45-54:&nbs p; In crease rate 100 units/hr&n bsp; - aPTT 55-85:&nbs p; NO CHANGE&nbs p; - aPTT 86-95:&nbs p;&nbs p;Decrease rate 100 units/hr&n bsp; - aPTT 96-120:&nb sp; H old 30 minutes, decrease rate 150 units/hr&n bsp; - aPTT > 120: Hold 60 minutes, decrease rate 200 units/hr&n bsp; Check aPTT 6 hours after initiation , then Q6H after every change, aPTT Q12H once therapeuti c levels are reached.&n bsp; &nbs p; __ &n bsp;FOR [facility] ONLY - aPTT < 40: & nbsp;Bolus 5000 units, increase rate 300 units/hr&a mp;nbsp; - aPTT 40-49:&nbs p; Abhijeet rowena 3000 units, increase rate 200 units/hr&n bsp; - aPTT 50-59:&nbs p; In crease rate 100 units/hr&n bsp; - aPTT 60-85:&nbs p; NO CHANGE&nbs p; - aPTT 86-95:&nbs p; De crease rate 100 units/hr&n bsp; - aPTT 96-120:&am p;nbsp;&nb sp;Hold 30 minutes, decrease rate 150 units/hr&n bsp; - aPTT > 120: Hold 60 minutes, decrease rate 200 units/hr&n bsp; Check aPTT 6 hours after initiation , then Q6H after every change, aPTT Q12H once therapeuti c levels are reached.&n bsp; DO NOT ADJUST INITIAL BOLUS OR INITIAL INFUSION RATE.
heparin 0 Yes 3000U FOR Univers (1,000 3-10 REBOLUSING ity of unit/mL, 10 06:18: , Starting [place] mL vial) 42 on Sun Medical for 09/15/22 at Branch Rebolusing 0018, Until Discontinu ed, Routine
Dosing based on aPPT testing parameters (refer to continuous heparin drip order).
dextrose 0 Yes 250mL 250 mL, IV Un mateusz 10% (D10W) 3-10 Infusion, ity of bolus 06:12: PRN - SEE [place] infusion 48 INSTRUCTIO Medic al 250 mL NS, Branch Administer over 60 Minutes, Other, If blood glucose is < or = 70 mg/dL and patient is unable to swallow or has mental status changes, Starting on Sun09/15/22 at 0012
If blood glucose is < or = 70 mg/dL and patient is unable to swallow or has mental status changes (Give glucagon order if patient needs fluid restrictio n): IF IV access available: Dextrose 10%. 1. 125 mL (? bag) of D10W IV infusion - equivalent to 12.5 g dextrose 2. Blood glucose - draw blood glucose 15 minutes after D10W Administra tion. 3. If blood glucose is < 80 mg/dL, repeat.
glucagon Yes 1mg 1 mg, Univers (GLUCAGEN -10 Intramuscu ity of DIAGNOSTIC 06:12: lar, PRN, [place] KIT) 43 Starting Medical injection 1 on Sun Branch mg 09/15/22 at 0012, Until Discontinu ed, SEGUN, Blood Glucose < or = 70 mg/dL and patient is NPO, unable to swallow or has mental changes. oxybutynin 2022- No 10mg Take 10 mg Univers 10 mg 24 hr 09-15-10 by mouth ity of tablet 00:25: 00:00 daily. [place] : [facility] losartan 50 2022-2022- No 50mg Take 50 mg Univers mg tablet 09-1510 by mouth ity o f 00:25: 00:00 daily. [place] :00 [facility] aspirin 81 2022- No 81mg Take 81 mg Univers mg EC 09-1510 by mouth ity of tablet 00:25: 00:00 daily. [place] :00 [facility] amLODIPine 2022- No 5mg Take 5 mg U nivers 5 mg tablet 09-15-10 by mouth ity of 00:25: 00:00 daily. [place] :00 [facility] ezetimibe 2022- No 10mg Take 10 mg U nivers (ZETIA) 10 09-15-10 by mouth ity of mg tablet 00:25: 00:00 daily. [place] :00 [facility] DULoxetine 2022- No 60mg Take 60 mg Univers 60 mg 09-15-10 by mouth ity of capsule 00:25: 00:[address] Vital Signs Vital Name Observation Time Observation Value Comments Source Systolic blood 2022-09-17 16:56:00 126 mm[Hg] Univer sity of pressure [facility] Diastolic blood 2022-09-17 16:56:00 60 mm[facility]Hg[facility] Heart rate 2022-09-17 16:56:00 50 /min [facility] Body temperature 2022-09-17 16:56:00 36.39 Gris [facility] Respiratory rate 2022-09-17 16:56:00 20 /min [facility] Oxygen saturation in 2022-09-17 16:56:00 93 /min [facility] Arterial blood by [facility] Pulse oximetry [facility] Body weight 2022-09-16 03:57:00 66.497 kg [facility] BMI 2022-09-16 03:57:00 26.81 kg/m2 [facility] Body height 2022-09-15 06:00:00 157.5 cm [facility] Procedures Procedure Date / Time Performing Clinician Source Performed EXTERNAL PROVIDER 2022-09-26 05:01:00 Doctor Unassigned, No [facility] RECORDS Name [facility] BASIC METABOLIC PANEL 2022-09-17 19:21:00 Nate [facility] (NA, K, CL, CO2, [facility] GLUCOSE, BUN, CREATININE, CA) POCT GLUCOSE (AUTOMATED) 2022-09-17 16:57:00 Yvrose Garcia [facility] POCT GLUCOSE (AUTOMATED) 2022-09-17 13:13:00 Yvrose Garcia [facility] PHOSPHORUS 2022-09-17 11:35:[address] [facility] MAGNESIUM 2022-09-17 11:35:[address] [facility] BASIC METABOLIC PANEL 2022-09-17 11:35:00 Nate [facility] (NA, K, CL, CO2, [facility] GLUCOSE, BUN, CREATININE, CA) CBC WITHOUT DIFF 2022-09-17 11:35:00 Nate [facility] POCT GLUCOSE (AUTOMATED) 2022-09-17 02:11:00 Yvrose Garcia [facility] POCT GLUCOSE (AUTOMATED) 2022-09-17 00:24:00 Yvrose Garcia [facility] BASIC METABOLIC PANEL 2022-09-16 21:19:00 Dwight Sullivan [facility] (NA, K, CL, CO2, Medical Branch GLUCOSE, BUN, CREATININE, CA) POCT GLUCOSE (AUTOMATED) 2022-09-16 18:42:00 Yvrose Garcia [facility] POCT GLUCOSE (AUTOMATED) 2022-09-16 14:53:00 Yvrose Garcia [facility] HB ECG ROUTINE & RHYTHM 2022-09-16 14:33:53 Chidi Martínez [facility] MAGNESIUM 2022-09-16 10:43:00 [facility] 2022-09-16 10:43:00 Chidi Martínez [facility] (NA, K, CL, CO2, Medical Branch GLUCOSE, BUN, CREATININE, CA) CBC WITH DIFF 2022-09-16 10:43:00 [facility] 2022-09-16 10:43:00 [facility]) 2022-09-16 02:27:00 Arpan Silver U [facility] ACTIVATED PARTIAL 2022-09-15 20:00:00 [facility] TRANST[facility]ACIC [facility]CHO (TTE) 2022-09-15 15:25:00 Chidi Martínez [facility] COMPLETE W/ CONTRAST Medical [facility] TROPONIN I 2022-09-15 14:56:00 Catrachita Ledesma [facility] POCT GLUCOSE (AUTOMATED) 2022-09-15 14:08:00 Arpan Silver U [facility] ACTIVATED PARTIAL 2022-09-15 14:06:00 [facility]ST 1 VW 2022-09-15 09:25:38 Chidi Martínez [facility] PHOSPHORUS 2022-09-15 06:54:00 [facility] 2022-09-15 06:54:00 Chidi Martínez [facility] FERRITIN SERUM 2022-09-15 06:54:00 [facility] TROPONIN [facility] 2022-09-15 06:54:00 [facility] FREE T4 2022-09-15 06:54:00 [facility] 2022-09-15 06:54:00 Chidi Martínez [facility] HEPATIC FUNCTION PANEL 2022-09-15 06:54:00 Chidi Martínez [facility] ([id number]) (ALB,T.PRO,BILI Medical Branch T,BU/BC,ALT,AST,ALK PHOS) BASIC METABOLIC PANEL 2022-09-15 06:54:00 Chidi Martínez [facility] (NA, K, CL, CO2, Medical Branch GLUCOSE, BUN, CREATININE, CA) LIPID PANEL 2022-09-15 06:54:00 Chidi Martínez [facility] ([id number])(TOTAL [facility] CHOLESTEROL, TRIGLYCERIDES, HDL) IRON PANEL 2022-09-15 06:54:00 [facility] 2022-09-15 06:54:00 [facility] GLYCOS[facility]EMOGLOBIN 2022-09-15 06:54:00 [facility] PROTHROMBIN TIME / INR 2022-09-15 06:54:00 Chidi Martínez [facility] ACTIVATED PARTIAL 2022-09-15 06:54:00 [facility] N-TERMINAL PRO-BNP 2022-09-15 06:54:00 Chidi Martínez [facility] MRSA / MSSA SCREEN BY 2022-09-15 06:54:00 Chidi Martínez [facility] PCR, NARES [facility] HB ECG ROUTINE & RHYTHM 2022-09-15 06:36:44 Chidi Martínez [facility] STRIP [facility] Encounters Start End Encounter Admission Attending Care Care Encounter Source Date/Time Date/Time Type Type Clinicians Facility Department ID 2022-12-15 2022-12-15 Outpatient MHIE MHIE [id number] Memoria 09:30:00 09:30:00 15 marques [facility] 2022-09-26 2022-09-26 Orders Doctor TJ [id number] Univers 00:00:00 00:00:00 Only Unassigned, BRITTANY 350.1.13.10 ity of [place] [facility] 4.2.7.2.686 [place] [id number] [facility] 009 Branch 2022-09-19 2022-09-19 Transition MIKE Copeland [id number] Univers 00:00:00 00:00:00 of Care Deann L MUNGUIA 350.1.13.10 i ty of [place] [id number] [facility] 403 Branch 2022-09-14 2022-09-17 Hospital ValentinachristopherArpan Yane MORAESE 1.2.840 .[id number] Univers 23:42:00 16:45:00 Encounter Gloria SolomonY 350. 1.13.10 ity of [facility] 4.2.7.2.686 [place] [id number] [facility] 089 Branch 2022-09-14 2022-09-17 Inpatient U SIRENA [facility] [id number] Univers 23:42:00 16:45:00 [facility] 2022-06-16 2022-06-16 Outpatient MHIE MHIE [id number] Memoria 10:15:00 10:15:00 14 marques Cornelius 2021-12-15 2021-12-15 Outpatient MHIE MHIE [id number] Memoria 10:45:00 10:45:00 13 marques Cornelius 2021-08-19 2021-08-19 Outpatient MHIE MHIE [id number] Memoria 10:30:00 10:30:00 12 marques Cornelius 2021-05-17 2021-05-17 Outpatient MHIE MHIE [id number] Memoria 13:15:00 13:15:00 11 marques Cornelius 2021-01-13 2021-01-13 Outpatient MHIE MHIE [id number] Memoria 13:15:00 13:15:00 10 l Adryan 2020-01-15 2020-01-15 Outpatient MHIE MHIE [id number] Memoria 13:30:00 13:30:00 09 l Adryan 2020-01-15 2020-01-15 Outpatient MHIE MHIE [id number] Memoria 13:30:00 13:30:00 08 marques Cornelius 2019-04-17 2019-04-17 Outpatient MHIE MHIE [id number] Memoria 13:00:00 13:00:00 07 l Adryan 2018-10-17 2018-10-17 Outpatient MHIE MHIE [id number] Memoria 13:15:00 13:15:00 06 marques Cornelius 2018-04-18 2018-04-18 Outpatient MHIE MHIE [id number] Memoria 13:15:00 13:15:00 05 marques Cornelius 2018-02-14 2018-02-14 Outpatient MHIE MHIE [id number] Memoria 13:00:00 13:00:00 04 marques Cornelius 2018-02-13 2018-02-13 Outpatient MHIE IE [id number] Memoria 15:45:00 15:45:00 03 marques Adryan 2018-01-14 2018-01-14 Outpatient MHIE MHIE [id number] Memoria 15:00:00 15:00:00 02 marques Cornelius 2018-01-01 2018-01-01 Outpatient MHIE MHIE [id number] Memoria 15:30:00 15:30:00 01 marques Cornelius 2017-08-16 2017-08-16 Outpatient MHIE IE [id number] Memoria 13:15:00 13:15:00 00 marques Adryan Results Test Description Test Time Test Comments Results Result Comments Source BASIC METABOLIC PANEL (NA, K, CL, CO2, GLUCOSE, BUN, 2022-09 20:01:06 CREATININE, CA) Test Item Value Reference Range Interpretation Comme nts NA (test code = 9351005948) 137 mmol/L 135-145 K (test code = 6956304740) 4.3 mmol/L 3.5-5.0 CL (test code = 2759801257) 96 mmol/L 98-108 L CO2 TOTAL (test code = 5529350672) 34 mmol/L 23-31 H AGAP (test code = 7890581884) 7 2-16 BUN (test code = 2282750846) 15 mg/dL 7-23 GLUCOSE (test code = 6780574174) 132 mg/dL 70-110 H CREATININE (test code = 0.90 mg/dL 0.50-1.04 7464376866) CALCIUM (test code = 0603510313) 8.8 mg/dL 8.6-10.6 eGFR (test code = 9823501335) 61.4 mL/min/1.73m2 KATHARINE (test code = KATHARINE) Association of Glomerular Filtration Rate (GFR) and Staging of Kidney Disease* + +-------- + ------+| GFR (mL/min/1.73 m2) ?| With Kidney Damage ?| ?Without Kidney Damage+ +-- + +| ?>90 ?| ?Stage one ?| ? Normal ?+ +------- + -------+| ?60-89 ?| ?Stage two ?| ? Decreased GFR ? + +-------- + ------+| ?30-59 ?| ?Stage three ?| ? Stage three ? + +-------- + ------+| ?15-29 ?| ?Stage four ? | ? Stage four ?+ +------- + -------+| ?<15 (or dialysis) ? ?| ?Stage five ? | ? Stage five ?+ +------- + -------+ *Each stage assumes the associated GFR level has been in effect for at least three months. ?Stages 1 to 5, with or without kidney disease, indicate chronic kidney disease. Notes: Determination of stages one and two (with eGFR >59mL/min/1.73 m2) requires estimation of kidney damage for at least three months as defined by structural or functional abnormalities of the kidney, manifested by either:Pathological abnormalities or Markers of kidney damage (including abnormalities in the composition of the blood or urine or abnormalities in imaging tests). Lab Interpretation (test code = Abnormal 92574-1) [facility] GLUCOSE (AUTOMATED)2022-09-17 16:58:13 Test Item Value Reference Range Interpretation Comments POCT GLU (test code = 108 mg/dL 70-110 [facility] ed Provider [id number]) Lab Interpretation (test Normal code = 76164-2) [facility] GLUCOSE (AUTOMATED)2022-09-17 13:14:09 Test Item Value Reference Range Interpretation Comments POCT GLU (test code = 4979613151) 131 mg/dL 70-110 H Lab Interpretation (test code = Abnormal 37395-3) [facility] GLUCOSE (AUTOMATED)2022-09-17 02:13:24 Test Item Value Reference Range Interpretation Comments POCT GLU (test code = 118 mg/dL 70-110 H Notifi ed Provider [id number]) Lab Interpretation (test Abnormal code = 56809-4) [facility] GLUCOSE (AUTOMATED)2022-09-17 00:25:53 Test Item Value Reference Range Interpretation Comments POCT GLU (test code = 186 mg/dL 70-110 H Notifi ed Provider [id number]) Lab Interpretation (test Abnormal code = 16281-7) [facility] METABOLIC PANEL (NA, K, CL, CO2, GLUCOSE, BUN, CREATININE, CA)2022-09-16 22:11:08 Test Item Value Reference Range Interpretation Comments NA (test code = 136 mmol/L 135-145 7837003289) K (test code = 3.6 mmol/L 3.5-5.0 2800957018) CL (test code = 93 mmol/L 98-108 L 8797855671) CO2 TOTAL (test code = 34 mmol/L 23-31 H 5254319561) AGAP (test code = 9 2-16 0741948503) BUN (test code = 12 mg/dL 7-23 5620983832) GLUCOSE (test code = 137 mg/dL 70-110 H 2804509206) CREATININE (test code = 0.85 mg/dL 0.50-1.04 3016324228) CALCIUM (test code = 8.9 mg/dL 8.6-10.6 4786823704) eGFR (test code = 65.6 mL/min/1.73m2 6704136176) KATHARINE (test code = KATHARINE) Association of Glomerular Filtration Rate (GFR) and Staging of Kidney Disease* + --+ --+ ------+| GFR (mL/min/1.73 m2) ?| With Kidney Damage ?| ?Without Kidney Damage+ --------+ --------+ +| ?>90 ?| ?Stage one ?| ? Normal ?+ ---+ ---+ -------+| ?60-89 ?| ?Stage two ?| ? Decreased GFR ? + --+ --+ ------+| ?30-59 ?| ?Stage three ?| ? Stage three ? + --+ --+ ------+| ?15-29 ?| ?Stage four ? | ? Stage four ?+ ---+ ---+ -------+| ?<15 (or dialysis) ? ?| ?Stage five ? | ? Stage five ?+ ---+ ---+ -------+ *Each stage assumes the associated GFR level has been in effect for at least three months. ?Stages 1 to 5, with or without kidney disease, indicate chronic kidney disease. Notes: Determination of stages one and two (with eGFR >59mL/min/1.73 m2) requires estimation of kidney damage for at least three months as defined by structural or functional abnormalities of the kidney, manifested by either:Pathological abnormalities or Markers of kidney damage (including abnormalities in the composition of the blood or urine or abnormalities in imaging tests). Lab Interpretation Abnormal (test code = 32552-1) [facility] GLUCOSE (AUTOMATED)2022-09-16 18:44:54 Test Item Value Reference Range Interpretation Comments POCT GLU (test code = 116 mg/dL 70-110 H Notifi ed Provider [id number]) Lab Interpretation (test Abnormal code = 25028-5) [facility] GLUCOSE (AUTOMATED)2022-09-16 14:54:24 Test Item Value Reference Range Interpretation Comments POCT GLU (test code = 140 mg/dL 70-110 H Notifi ed Provider [id number]) Lab Interpretation (test Abnormal code = 54940-0) [facility] GLUCOSE (AUTOMATED)2022-09-16 02:39:58 Test Item Value Reference Range Interpretation Comments POCT GLU (test code = 7606877104) 126 mg/dL 70-110 H Lab Interpretation (test code = Abnormal 85097-0) [facility] GLUCOSE (AUTOMATED)2022-09-15 14:09:32 Test Item Value Reference Range Interpretation Comments POCT GLU (test code = 1959419173) 129 mg/dL 70-110 H Lab Interpretation (test code = Abnormal 94861-7) [facility]"
[2022-12-13] MEDS ORDERED: NA CHLORIDE 0.9% 500 ML ONE (14:51)
[2022-12-13] MEDS ORDERED: AMIODARONE HCL 150 MG/3 ML INJ IV ONE (14:51)
[2022-12-13] MEDS ORDERED: AMIODARONE IN DEXTROSE,ISO-OSM 360 MG/200 ML BAG IV ONE ×2 (14:51→20:11)
[2022-12-13] MEDS ORDERED: MAGNESIUM SULFATE 1 gm IVPB 1 GM/100 ML BAG IV ONE (14:51)
[2022-12-13] MEDS ORDERED: D5W 100 ML IV ONE (14:52)
[2022-12-13 15:00] LABS: Absolute Lymphocytes (CBC) 1.5 K/uL (0.7-4.9); Hematocrit 39.9 % (36.0-45.0); MCV 86.3 fL (80-100); MPV 9.1 fL (7.6-11.3); RBC Red Blood Cell Count 4.62 M/uL (3.86-4.86)
[2022-12-13 15:01] LABS: Protime INR 1.15
[2022-12-13 15:12] LABS: Potassium 3.9 mEq/L (3.5-5.1); Troponin High Sensitivity 39.2 pg/mL (<58.9)
--- NOTE | 2022-12-13 15:37 | RAD REPORT ---
EXAM DESCRIPTION: RADChest Single View12/13/2022 3:01 pm CLINICAL HISTORY: PALPITATIONS COMPARISON: Chest Single View dated 09/14/2022; Chest Single View dated 05/16/2022; Chest Single View d ated 06/18/2021; Chest Pa And Lat (2 Views) dated 11/13/2019 TECHNIQUE: Portable AP view of the chest. FINDINGS: The lungs are clear. Stable to mildly improved central interstitial prominence. No pneumot horax or effusion. The cardiomediastinal contours are unremarkable. IMPRESSION: Stable to mildly improved central interstitial prominence. No other acute cardiopulmonar y process.
--- NOTE | 2022-12-13 16:18 | ER ---
Nurse's Notes [facility] Name: Angelique Ayala Age: 72 yrs Sex: Female : 1950 Arrival Date: 12/13/2022 Time: 14:20 Bed 8 Private MD: Manolo Miller C Diagnosis: Persistent atrial fibrillation-with rapid ventricular rate;Hypotension, unspecified Presentation: 12/13 14:22 Chief complaint: SOB x 2 days, palpitations and left sided chest pain that radiates to left arm since this morning. On 2LNC home O2. Coronavirus screen: Client presents with at least one sign or symptom that may indicate coronavirus-19. Provider contacted for isolation considerations. Ebola Screen: No symptoms or risks identified at this time. Initial Sepsis Screen: Does the patient meet any 2 criteria? No. Patient's initial sepsis screen is negative. Does the patient have a suspected source of infection? No. Patient's initial sepsis screen is negative. Risk Assessment: Do you want to hurt yourself or someone else? Patient reports no desire to harm self or others. Onset of symptoms was December 12, 2022. 14:22 Method Of Arrival: Wheelchair hb 14:22 Acuity: CHAZ 2 hb Historical: - Allergies: 14:24 midazolam HCl; hb 14:24 Naproxen; hb 14:24 PROPOFOL; hb - Home Meds: 14:24 aripiprazole 5 mg Oral tbsr 1 tab once daily [Active]; aspirin 81 mg Oral cap 1 cap hb once daily [Active]; clonazepam 0.5 mg Oral tab 0.5 tab PRN [Active]; famotidine 40 mg Oral tab 1 tab once daily [Active]; gabapentin 300 mg Oral cap 1 cap 3 times per day [Active]; losartan 50 mg Oral tab 1 tab 2 times per day [Active]; magnesium oxide 400 mg magnesium Oral tab daily [Active]; metformin 1,000 mg Oral tab 1 tab 2 times per day [Active]; Colace 100 mg Oral cap 1 cap 2 times per day [Active]; metoprolol tartrate 25 mg Oral tab 0.5 tab once daily [Active]; omeprazole 40 mg Oral cpDR 1 cap once daily [Active]; oxybutynin chloride 10 mg Oral tr24 1 tab once daily [Active]; Multiple Vitamins Oral tab [Active]; ropinirole 1 mg Oral tab 1 tab [Active]; sertraline 200 mg Oral cap 1 cap once daily [Active]; Vitamin C 1,000 mg Oral tab [Active]; - PMHx: 14:24 diabetes mellitus; GERD; Atrial fibrillation; Hypertensive disorder; hb - Family history:: not pertinent. - Hospitalizations: : No recent hospitalization is reported. Screenin:34 [facility] ED Fall Risk Assessment (Adult) History of falling in the last 3 months, mb9 including since admission No falls in past 3 months (0 pts) Confusion or Disorientation No (0 pts) Intoxicated or Sedated No (0 pts) Impaired Gait No (0 pts) Mobility Assist Device Used No (0 pt) Altered Elimination No (0 pt) Score/Fall Risk Level 0 - 2 = Low Risk Oriented to surroundings, Maintained a safe environment, Educated pt \T\ family on fall prevention, incl call for assistance when getting out of bed. Abuse screen: Denies threats or abuse. Nutritional screening: No deficits noted. Tuberculosis screening: No symptoms or risk factors identified. Assessment: 15:37 Reassessment: Patient appears in no apparent distress at this time. Patient and/or vg1 family updated on plan of care and expected duration. Pain level reassessed. Patient is alert, oriented x 3, equal unlabored respirations, skin warm/dry/pink. Patient denies pain at this time. Vital Signs: 14:22 BP 84 / 72; Pulse 170; Resp 24; Temp 98.3(O); Pulse Ox 96% on 2 lpm NC; Weight 68.04 hb kg; Height 5 ft. 3 in. ; Pain 0/10; 14:30 BP 91 / 51; Pulse 84; Resp 22; Pulse Ox 98% on 2 lpm NC; eh3 14:45 BP 82 / 71; Pulse 146; Resp 22; Pulse Ox 99% on 2 lpm NC; eh3 14:50 BP 90 / 72; Pulse 145; Resp 25; Pulse Ox 98% on 2 lpm NC; eh3 15:00 BP 108 / 65; Pulse 103; Resp 24; Pulse Ox 99% on 2 lpm NC; eh3 15:15 BP 118 / 58; Pulse 105; Resp 25; Pulse Ox 99% on 2 lpm NC; eh3 15:33 BP 106 / 62; Pulse 107; Resp 19; Pulse Ox 98% ; vg1 14:22 Body Mass Index 26.57 (68.04 kg, 160.02 cm) hb 14:22 Pain Scale: Adult hb ED Course: 14:22 Patient arrived in ED. rg4 14:22 Manolo Miller MD is Private Physician. rg4 14:24 Triage completed. hb 14:29 Teofilo Kaplan MD is Attending Physician. rn 14:39 Margot Kauffman RN is Primary Nurse. [facility] 14:50 Initial lab(s) drawn, by ky, sent to lab. Inserted saline lock: 20 gauge in right em1 forearm, using aseptic technique. Blood collected. 15:02 XRAY Chest (1 view) In Process Unspecified. EDMS 16:17 Manolo Miller MD is Hospitalizing Provider. rn Administered Medications: 14:45 Drug: Magnesium Sulfate IVPB 1 grams Route: IVPB; Infused Over: 1 hrs; Site: right 3 antecubital; 15:45 Follow up: IV Status: Completed infusion; IV Intake: 100ml vg1 14:45 Drug: amiodarone IVPB 150 mg Volume: 100 ml; Route: IVPB; Infused Over: 10 mins; Site: [facility] right antecubital; 15:00 Follow up: IV Status: Completed infusion; IV Intake: 100ml vg1 14:45 Drug: NS 0.9% IV 500 ml Route: IV; Rate: bolus; Site: right antecubital; [facility] 15:45 Follow up: IV Status: Completed infusion; IV Intake: 500ml vg1 15:00 Drug: amiodarone IVPB 900 mg, D5W IV 500 ml Route: IVPB; Rate: 1 mg/min; Site: right 3 antecubital; Medication: 15:34 VIS not applicable for this client. mb9 Intake: 15:00 IV: 100ml; Total: 100ml. vg1 15:45 IV: 500ml; Total: 600ml. vg1 15:45 IV: 100ml; Total: 700ml. vg1 Outcome: 16:17 Decision to Hospitalize by Provider. rn 23:48 Admitted to Med/surg accompanied by tech, via stretcher, room 208, Report called to [facility] Yoly 23:48 Condition: stable 23:48 Instructed on the need for admit, Demonstrated understanding of instructions. 23:49 Patient left the ED. 3 Signatures: Dispatcher [employer] EDTeofilo Riggins MD MD rn Martinez, Eric em1 Анна Lopez RN RN hb Graciela Jameson rg4 Verónica Trejo, PAVITHRA RN lg3 Mary Jameson RN RN vg1 Margot Kauffman RN RN 3 Tricia Hong RN RN mb9 Corrections: (The following items were deleted from the chart) 14:26 14:22 BP 84 / 72; Pulse 89bpm; Resp 20bpm; Pulse Ox 96% 2 lpm Nasal Cannula; Temp 98.3F hb Oral; 68.04 kg; Height 5 ft. 3 in.; BMI: 26.5; Pain 0/10, Adult; hb
--- NOTE | 2022-12-13 16:18 | EDPHYS ---
Physician Documentation [facility] Name: Angelique Ayala Age: 72 yrs Sex: Female : 1950 Arrival Date: 12/13/2022 Time: 14:20 Bed 8 Private MD: Manolo Miller C ED Physician Teofilo Kaplan HPI: 12/13 16:14 This 72 yrs old Female presents to ER via Wheelchair with complaints of Shortness Of rn Breath, Palpitations. 16:14 The patient presents with a history of irregular heart beat, heart racing. Context: The rn symptoms occur at rest. Onset: The symptoms/episode began/occurred 2 day(s) ago. Duration: The patient or guardian reports a single episode, that is still ongoing. Modifying factors: The symptoms are aggravated by nothing. The symptoms are alleviated by nothing. Severity of symptoms: At their worst the symptoms were moderate in the emergency department the symptoms are unchanged. The patient has experienced similar episodes in the past. Historical: - Allergies: 14:24 midazolam HCl; hb 14:24 Naproxen; hb 14:24 PROPOFOL; hb - Home Meds: 14:24 aripiprazole 5 mg Oral tbsr 1 tab once daily [Active]; aspirin 81 mg Oral cap 1 cap hb once daily [Active]; clonazepam 0.5 mg Oral tab 0.5 tab PRN [Active]; famotidine 40 mg Oral tab 1 tab once daily [Active]; gabapentin 300 mg Oral cap 1 cap 3 times per day [Active]; losartan 50 mg Oral tab 1 tab 2 times per day [Active]; magnesium oxide 400 mg magnesium Oral tab daily [Active]; metformin 1,000 mg Oral tab 1 tab 2 times per day [Active]; Colace 100 mg Oral cap 1 cap 2 times per day [Active]; metoprolol tartrate 25 mg Oral tab 0.5 tab once daily [Active]; omeprazole 40 mg Oral cpDR 1 cap once daily [Active]; oxybutynin chloride 10 mg Oral tr24 1 tab once daily [Active]; Multiple Vitamins Oral tab [Active]; ropinirole 1 mg Oral tab 1 tab [Active]; sertraline 200 mg Oral cap 1 cap once daily [Active]; Vitamin C 1,000 mg Oral tab [Active]; - PMHx: 14:24 diabetes mellitus; GERD; Atrial fibrillation; Hypertensive disorder; hb - Family history:: not pertinent. - Hospitalizations: : No recent hospitalization is reported. ROS: 16:14 Constitutional: Negative for fever, chills, and weight loss, Cardiovascular: + rn palpitations Respiratory: + sob Abdomen/GI: Negative for abdominal pain, nausea, vomiting, diarrhea, and constipation, MS/Extremity: Negative for injury and deformity, Skin: Negative for injury, rash, and discoloration, Neuro: Negative for headache, weakness, numbness, tingling, and seizure. Exam: 16:14 Constitutional: This is a well developed, well nourished patient who is awake, alert, rn and in no acute distress. Head/Face: Normocephalic, atraumatic. Cardiovascular: tachycardic, irregular Respiratory: Mild tachypnea, no retractions Skin: Warm, dry Neuro: Awake and alert, GCS 15 Vital Signs: 14:22 BP 84 / 72; Pulse 170; Resp 24; Temp 98.3(O); Pulse Ox 96% on 2 lpm NC; Weight 68.04 hb kg; Height 5 ft. 3 in. ; Pain 0/10; 14:30 BP 91 / 51; Pulse 84; Resp 22; Pulse Ox 98% on 2 lpm NC; eh3 14:45 BP 82 / 71; Pulse 146; Resp 22; Pulse Ox 99% on 2 lpm NC; eh3 14:50 BP 90 / 72; Pulse 145; Resp 25; Pulse Ox 98% on 2 lpm NC; eh3 15:00 BP 108 / 65; Pulse 103; Resp 24; Pulse Ox 99% on 2 lpm NC; eh3 15:15 BP 118 / 58; Pulse 105; Resp 25; Pulse Ox 99% on 2 lpm NC; eh3 15:33 BP 106 / 62; Pulse 107; Resp 19; Pulse Ox 98% ; vg1 14:22 Body Mass Index 26.57 (68.04 kg, 160.02 cm) hb 14:22 Pain Scale: Adult hb MDM: 14:29 Patient medically screened. rn 16:14 Differential diagnosis: arrythmia, dehydration, stress disorder, afib with RVR. Data rn reviewed: vital signs, nurses notes, lab test result(s), EKG, radiologic studies, plain films, and as a result, I will admit patient. Consideration of Admission/Observation Patient was admitted/placed on observation. Escalation of care including admission/observation considered. Management of patient was discussed with the following: Primary Care Provider: . I considered the following discharge prescriptions or medication management in the emergency department Medications were administered in the Emergency Department. See MAR. Counseling: I had a detailed discussion with the patient and/or guardian regarding: the historical points, exam findings, and any diagnostic results supporting the discharge/admit diagnosis, lab results, radiology results, the need for further work-up and treatment in the hospital. Response to treatment: the patient's symptoms have markedly improved after treatment, and as a result, I will admit patient. ED course: HR down to 106, still afib, BP improved, patient feels better, will admit to Dr. Miller with cardiology consult.. 12/13 14:38 Order name: Basic Metabolic Panel; Complete Time: 15:27 rn 12/13 14:38 Order name: CBC with Diff; Complete Time: 15:27 rn 12/13 14:38 Order name: NT PRO-BNP; Complete Time: 15:27 rn 12/13 14:38 Order name: PT-INR; Complete Time: 15:27 rn 12/13 14:38 Order name: Troponin HS; Complete Time: 15:27 rn 12/13 20:18 Order name: Troponin High Sensitivity EDMS 12/13 20:30 Order name: Magnesium EDMS 12/13 20:30 Order name: Thyroid Stimulating Hormone EDMS 12/13 14:38 Order name: XRAY Chest (1 view); Complete Time: 15:39 rn 12/13 14:38 Order name: EKG; Complete Time: 14:39 rn 12/13 14:38 Order name: Cardiac monitoring; Complete Time: 14:39 rn 12/13 14:38 Order name: EKG - Nurse/Tech; Complete Time: 14:40 rn 12/13 14:38 Order name: IV Saline Lock; Complete Time: 14:50 rn 12/13 14:38 Order name: Labs collected and sent; Complete Time: 14:50 rn 12/13 14:38 Order name: O2 Per Protocol; Complete Time: 14:40 rn 12/13 14:38 Order name: O2 Sat Monitoring; Complete Time: 14:40 rn Administered Medications: 14:45 Drug: Magnesium Sulfate IVPB 1 grams Route: IVPB; Infused Over: 1 hrs; Site: right eh3 antecubital; 15:45 Follow up: IV Status: Completed infusion; IV Intake: 100ml vg1 14:45 Drug: amiodarone IVPB 150 mg Volume: 100 ml; Route: IVPB; Infused Over: 10 mins; Site: [facility] right [facility]; 15:00 Follow up: IV Status: Completed infusion; IV Intake: 100ml vg1 14:45 Drug: NS 0.9% IV 500 ml Route: IV; Rate: bolus; [facility] 15:45 Follow up: IV Status: Completed infusion; IV Intake: 500ml vg1 15:00 Drug: amiodarone IVPB 900 mg, D5W IV 500 ml Route: IVPB; Rate: 1 mg/min; Site: right [address]; Disposition Summary: 12/13/22 16:17 Hospitalization Ordered Hospitalization Status: Inpatient Admission rn Provider: Manolo Miller rn Condition: Stable rn Problem: new rn Symptoms: have improved rn Bed/Room Type: Standard rn Location: Telemetry/MedSurg (Inpatient)(12/13/22 22:32) jj7 Room Assignment: [facility](12/13/22 22:32) jj7 Diagnosis - Persistent atrial fibrillation - with rapid ventricular rate rn - Hypotension, unspecified rn Forms: - Medication Reconciliation Form rn - SBAR form director of learning time excluding procedures: 16:14 Critical care time: Bedside Care: 35 minutes, Family Intervention: 5 minutes. Total rn time: 40 minutes Signatures: Dispatcher [employer] EDMS Kathia Benson Roman, MD MD rn Baxter, Heather RN Margot Jones RN RN 3 Leo Garcia RN RN Mary Valencia RN vg1 Corrections: (The following items were deleted from the chart) 16:54 16:17 Telemetry/MedSurg (Inpatient) rn bd 16:54 16:17 rn bd 22:32 16:54 [facility] ER HOLD bd jj7 22:32 16:54 ERHOLD- bd jj7
[2022-12-13] MEDS ORDERED: AMIODARONE HCL 900 MG in Dextrose 5%-Water 482 ML IV SCH (19:20)
[2022-12-13] MEDS ORDERED: ONDANSETRON 4 MG/2 ML VIAL IV PRN (19:20)
[2022-12-13 20:10] VITALS: BMI 26.5
[2022-12-13 20:30] LABS: Magnesium 1.9 mg/dL (1.6-2.4); Thyroid Stimulating Hormone 2.99 uIU/mL (0.358-3.740)
[2022-12-13] MEDS: APIXABAN 5 MG TABLET PO SCH (20:51)
[2022-12-13] MEDS ORDERED: APIXABAN 5 MG TABLET ONE (20:52)
--- NOTE | 2022-12-13 23:05 | HP ---
Date of Admission: 12/13/2022 Chief Complaint: Palpitations and shortness of breath. History Of Present Illness: This is a 72-year-old female patient who has history of atrial fibrillat ion and came into emergency room today with complaints of palpitations and shortness of breath that s tarted yesterday. The patient has had some chest pain with this. Denies any vomiting or diarrhea. No fever or chills. When she came into emergency room, her blood pressure was low, heart rate was hi gh, and she was in atrial fibrillation with rapid ventricular rate. She was started on IV amiodarone drip and that actually has helped to stabilize her condition. I was contacted requesting admission to the hospital. When I saw her in the emergency room this evening, she was on IV amiodarone drip. Her heart rate was around 120, atrial fibrillation with rapid ventricular rate, systolic blood pressu re was around 92 to 95. Overall, she was feeling better than earlier today. Allergies: MIDAZOLAM CAUSING BRADYCARDIA, NAPROXEN CAUSING HIVES, STATIN CAUSING MUSCLE WEAKNESS, AN D ZETIA ALSO CAUSING MUSCLE WEAKNESS. Medications: She takes Eliquis 5 mg 2 times a day, aripiprazole 5 mg daily, famotidine 40 mg at bedt fior, furosemide 20 mg that she takes 3 tablets 2 times a day, gabapentin 300 mg 2 times a day, magnes ium oxide 400 mg 3 times a day, metformin 1000 mg 2 times a day with meal, metoprolol tartrate 50 mg 2 times a day, omeprazole 40 mg daily, ropinirole 1 mg daily at bedtime, sertraline 100 mg daily, vit de jesus B12 500 mcg daily, and potassium chloride 20 mEq daily. Review of Systems: Cardiovascular: As mentioned above. Respiratory: As mentioned above. All other systems reviewed and negative. Past Medical History: Significant for type 2 diabetes mellitus, hypertension, mixed hyperlipidemia, gastroesophageal reflux disease, diverticulosis, depression, osteopenia, peripheral neuropathy, chron ic diastolic heart failure, urge incontinence, rosacea, anemia, chronic atrial fibrillation, long-ter m anticoagulation therapy, and chronic respiratory failure with hypoxia. Past Surgical History: Tonsillectomy, cholecystectomy, hysterectomy, and surgery for wrist fracture. Family History: Father and had hypertension and diabetes. Mother and had diabetes and con gestive heart failure. Social History: Prior history of smoking, not at present time. Use of alcohol, occasional. Physical Examination: Vital Signs: Height 5 feet 3 inches, weight 150 pounds. When she first came into emergency room, he r blood pressure was 84/72, pulse 170, respiratory rate 24, temperature 98.3, and oxygen saturation 9 6%. General: Awake, alert, oriented, not in distress. HEENT: Head atraumatic, normocephalic. Conjunctivae nonerythematous. Sclerae white. Mouth, no thr ush or edema noted. Ears/Nose, no mass, lesion, discharge noted. Neck: Supple. No JVD, lymph nodes, bruit, thyromegaly noted. Lungs: Bilateral good equal air entry. Clear to auscultation except presence of bibasilar rales, sl ightly more on the left side than the right side. Not using any accessory muscles of respiration. Heart: Irregular heart rhythm. No murmur. No gallop. Abdomen: Soft, bowel sounds normal. No guarding, rigidity, tenderness, mass, hepatosplenomegaly, dis tention, or bruit noted. Extremities: No leg edema. No calf tenderness. Skin: No rash, ulcer, cellulitis. Lymphatics: No lymph node enlargement in neck, supraclavicular, infraclavicular region. Neuro: No focal neurological deficit. Chest: Unremarkable. External Genitalia: Deferred. Rectal: Deferred. Laboratory Data: White count 9.1, hemoglobin 13.1, and platelet count 235. Sodium 136, potassium 3. 9, chloride 199, bicarb 30, BUN 23, creatinine 1.16, and glucose 140. Troponin 39.2. ProBNP 6600. Chest x-ray shows prominent interstitial markings better compared to previous chest x-ray from prior admission. Impression: 1.Atrial fibrillation with rapid ventricular rate. 2.Chest pain. 3.Chronic respiratory failure with hypoxia. 4.Chronic diastolic heart failure. 5.Type 2 diabetes mellitus with diabetic neuropathy. 6.Hypertension. 7.Mixed hyperlipidemia. 8.Diverticulosis. 9.Chronic anticoagulation therapy. 10.Rosacea. Plan: Admit the patient to hospital for further evaluation and management of this problem. The nazanin ent is appropriate for inpatient and is expected to spend 2 midnights in hospital. We will go ahead and consult Cardiology. The patient is on IV amiodarone drip and we will continue that and we will g o ahead and continue Eliquis per order. We will not use any metoprolol at this point because her blo od pressure is running on the lower side right now. I will add magnesium and TSH and we will follow up on that result. For her hyperlipidemia, we will go ahead and continue statin therapy per order. Diabetes will be managed with sliding scale insulin per order. For her restless legs syndrome, we wi ll continue her Requip. Other home medications will be continued per order and I will see her tomorr ow morning for followup. Details of plan of treatment discussed with her. YOLANDA/MODL Voice ID: [id number]
[2022-12-14 00:42] VITALS: O2SAT 98
[2022-12-14 03:48] LABS: Absolute Lymphocytes (CBC) 1.5 K/uL (0.7-4.9); Hematocrit 35.7 % (36.0-45.0); MCV 85.4 fL (80-100); MPV 9.3 fL (7.6-11.3); RBC Red Blood Cell Count 4.19 M/uL (3.86-4.86)
[2022-12-14 03:59] LABS: Potassium 3.4 mEq/L (3.5-5.1)
[2022-12-14 04:45] LABS: Anisocytosis 1+; Blood Morphology Comment NOTED (NOT SEEN); Platelet Estimate ADEQ; White Blood Cell Scan OK (OK)
[2022-12-14] MEDS ORDERED: AMIODARONE IN DEXTROSE,ISO-OSM 360 MG/200 ML BAG IV ONE (04:59)
[2022-12-14] MEDS ORDERED: POTASSIUM CL SA 10 MEQ TAB PO ONE (07:45)
[2022-12-14] MEDS ORDERED: GLUCAGON 1 MG/VIAL IM PRN (07:46)
[2022-12-14] MEDS ORDERED: D50W 25 GM/50 ML SYRINGE IV PRN (07:46)
[2022-12-14] MEDS ORDERED: D10W 125 ML IV PRN (07:59)
[2022-12-14] MEDS ORDERED: PNEUMOCOCCAL VACCINE 0.5 ML IMVAC ONE (08:00)
[2022-12-14] MEDS: MAGNESIUM OXIDE 400 MG TAB PO SCH ×2 (09:00→21:00)
[2022-12-14] MEDS ORDERED: MAGNESIUM OXIDE 400 MG TAB PO SCH (09:00)
[2022-12-14] MEDS: APIXABAN 5 MG TABLET PO SCH ×2 (09:28→21:44)
[2022-12-14] MEDS: METOPROLOL TAR 25 MG TAB PO SCH ×2 (09:28→21:46)
[2022-12-14] MEDS: GABAPENTIN 300 MG CAP PO SCH ×2 (09:28→21:44)
[2022-12-14] MEDS: DIGOXIN 0.25 MG/ML AMP IV SCH ×2 (09:29→14:32)
[2022-12-14] MEDS: ARIPiprazole 5 MG TAB PO SCH (09:29)
[2022-12-14] MEDS: SERTRALINE HCL 100 MG TAB PO SCH (09:34)
[2022-12-14] MEDS: INSULIN -REGULAR HUMAN 50 UNIT/0.5 ML ML SQ SCH ×3 (11:30→21:00)
--- NOTE | 2022-12-14 13:26 | EKG ---
Test Date: 2022-12-13 Test Time: 14:33:03 Pile Header: HB MEASUREMENT RESULTS: Intervals: Rate: 149 NM: QRSD: 76 QT: 298 QTc: 469 [place]: P: NM: QRS: 100 T: 132 INTERPRETIVE STATEMENTS: Sinus tachycardia Rightward axis Nonspecific ST and T wave abnormality Abnormal ECG Compared to ECG 09/14/2022 18:23:32 Right-axis deviation now present Junctional escape complex(es) no longer present ST (T wave) deviation still present Electronically Signed On 12-14-22 13:25:41 CDT by Mike Vasquez
--- NOTE | 2022-12-14 20:55 | PN ---
Date of Progress Note: 12/14/2022 Subjective: The patient was seen this morning for followup. She was lying in bed, not in distress. Denies any chest pain or shortness of breath. No palpitation feeling. Objective: Vital Signs: Reviewed. HEENT: Unremarkable. Lungs: Clear to auscultation. Heart: Sounds normal. Heart rhythm is irregularly irregular and rapid and on cafeteria monitor her h eart rate is anywhere between 150 to 160 atrial fibrillation with rapid ventricular rate. Abdomen: Soft. Bowel sounds normal. No guarding, rigidity, tenderness, or distention. Extremities: No leg edema. Laboratory Data: White count 5.9, hemoglobin 12.2, and platelets 260. Sodium 140, potassium 3.4, ch loride 100, bicarb 36, BUN 18, creatinine 0.79, and glucose 129. Impression: 1.Atrial fibrillation with rapid ventricular rate. 2.Hypokalemia. 3.Type 2 diabetes mellitus. 4.Hypertension. Plan: We will go ahead and continue Eliquis. The patient is on IV amiodarone. We will continue mayelin t. I did communicate with Dr. Herrera and details were discussed with him. We will start the patien t on IV digoxin 0.25 mg IV x2 doses and also start her on metoprolol. By tomorrow morning if she is not better, then Dr. Herrera will consider cardioversion on her and details were discussed with the patient as well. YOLANDA/MODL Voice ID: [id number] Report ID: [id number]
[2022-12-14] MEDS ORDERED: FAMOTIDINE 20 MG TAB PO SCH (21:00)
[2022-12-14] MEDS ORDERED: ROPINIROLE HCL 1 MG TAB PO SCH (21:00)
[2022-12-14] MEDS ORDERED: POTASSIUM 25 MEQ EFFERV TAB PO ONE (21:00)
[2022-12-15 05:39] VITALS: TEMP 97.1
[2022-12-15] MEDS ORDERED: PANTOPRAZOLE 40MG TABLET PO SCH (06:30)
[2022-12-15 07:17] LABS: Potassium 4.2 mEq/L (3.5-5.1)
[2022-12-15] MEDS: INSULIN -REGULAR HUMAN 50 UNIT/0.5 ML ML SQ SCH (07:30)
[2022-12-15 08:10] VITALS: BP 118/64
[2022-12-15] MEDS: MAGNESIUM OXIDE 400 MG TAB PO SCH (08:47)
[2022-12-15] MEDS: ARIPiprazole 5 MG TAB PO SCH (08:47)
[2022-12-15] MEDS: SERTRALINE HCL 100 MG TAB PO SCH (08:47)
[2022-12-15] MEDS: APIXABAN 5 MG TABLET PO SCH (08:47)
[2022-12-15] MEDS: GABAPENTIN 300 MG CAP PO SCH (08:47)
[2022-12-15] MEDS ORDERED: METOPROLOL TAR 50 MG TAB PO SCH (09:00)
--- NOTE | 2022-12-15 14:45 | EKG ---
Test Date: 2022-12-15 Test Time: 01:10:46 Classroom Coordinator: SUMAN MEASUREMENT RESULTS: Intervals: Rate: 84 [place]: 240 QRSD: 86 QT: 382 QTc: 451 [place]: P: 89 [place]: 240 QRS: 64 T: 49 INTERPRETIVE STATEMENTS: Sinus rhythm with 1st degree AV block Nonspecific T wave abnormality Abnormal ECG Compared to ECG 12/15/2022 01:10:01 No significant changes Electronically Signed On 12-15-22 14:44:15 CDT by Eleuterio Herrera
--- NOTE | 2022-12-15 14:46 | EKG ---
Test Date: 2022-12-15 Test Time: 01:10:01 School Fundraising Director: SUMAN MEASUREMENT RESULTS: Intervals: Rate: 84 NM: 256 QRSD: 84 QT: 352 QTc: 415 [place]: P: 81 NM: 256 QRS: 61 T: 63 INTERPRETIVE STATEMENTS: Sinus rhythm with 1st degree AV block Nonspecific T wave abnormality Abnormal ECG Compared to ECG 12/13/2022 14:33:03 First degree AV block now present T-wave abnormality now present Sinus tachycardia no longer present Right-axis deviation no longer present ST (T wave) deviation no longer present Electronically Signed On 12-15-22 14:44:16 CDT by Eleuterio Herrera
--- NOTE | 2022-12-15 19:53 | DS ---
Date of Discharge: 12/15/2022 Disposition: Discharged to go home. Physical Examination: HEENT: Unremarkable. Lungs: Clear to auscultation. Heart: Sounds normal. Abdomen: Soft. Bowel sounds normal. No guarding, rigidity, tenderness, or distention. Extremities: No leg edema. Laboratory Data: Upon admission white count was 9.1, hemoglobin 13.1, and platelets 235. Repeat CBC from yesterday with white count 5.9, hemoglobin 12.2, and platelets 160. Initial chemistry with sod ium 136, potassium 3.9, chloride 99, bicarb 30, BUN 23, creatinine 1.16, and glucose 140. Troponin 3 9.2 on the first set, second set 37.1, and third set 36.4. TSH 2.9. ProBNP 6006. Yesterday sodium was 140, potassium 3.4, chloride 100, bicarb 36, BUN 18, creatinine 0.79, and glucose 129. Repeat po tassium after correction yesterday was 3.9. Hospital Course: This is a 72-year-old pleasant female patient who came into emergency room with com plaints of palpitations and shortness of breath feeling. Please see dictated H and P for more inform ation. After patient was evaluated in the ER, she was admitted to the hospital with atrial fibrillat ion with rapid ventricular rate. Initially, her heart rate was around 170 beats per minute. The pat ient was started on IV amiodarone drip. At home she takes Eliquis 5 mg 2 times a day, which was cont inued. Cardiology consultation was requested. The patient remained on telemetry and yesterday she r eceived digoxin 0.25 mg IV x2 doses and we started her on metoprolol 25 mg twice a day. At home, she takes 50 mg twice a day. Her blood pressure has remained stable. During nighttime she converted to sinus rhythm and later this morning she did go back in atrial fibrillation, but heart rate was under much better control. She was around 110 beats per minute. This morning when I saw her, she informe d me that she was feeling a lot better since she converted to sinus rhythm and does not feel like hav ing any shortness of breath. I did communicate with vocational childcare teacher, Dr. Herrera today and he has infor [employer] that the patient should go home with amiodarone 400 mg 2 times a day and he will consider outpati ent cardioversion if she continues to remain in atrial fibrillation. Final Diagnoses: 1.Chronic atrial fibrillation, with acute exacerbation and rapid ventricular rate. 2.Hypokalemia. 3.Chest pain. 4.Chronic respiratory failure with hypoxia. 5.Chronic diastolic heart failure. 6.Type 2 diabetes mellitus with diabetic neuropathy. 7.Hypertension. 8.Mixed hyperlipidemia. 9.Diverticulosis. 10.Chronic anticoagulation therapy. 11.Rosacea. Discharge Medications And Instructions: 1.Continue all prior home medications. 2.Take amiodarone 200 mg, the patient to take 2 tablets by mouth 2 times a day. 3.Follow up at my office next week and follow up with vocational childcare teacher in 2 weeks. YOLANDA/MODL Voice ID: [id number] Report ID: [id number]
--- NOTE | 2022-12-16 11:50 | CON ---
Date of Consultation: 12/14/2022 Reason For Consultation: Atrial fibrillation. History Of Present Illness: Ms. Jamie Alfaro. Has had a history of atrial fibrillation in the past. Two months ago had a rather extensive cardiac workup in the office that was negative. She has a past [facility] history of diabetes, hypertension, mild chronic diastolic congestive heart failure. Comes in wi th rapid atrial fibrillation. She is now on amiodarone drip as well as Eliquis. Heart rate has been anywhere from 96-120. Main complaint is shortness of breath and palpitation. Past Medical History: As stated above. Allergies: INCLUDE NAPROSYN, MIDAZOLAM, AND PROPOFOL. Review of Systems: Negative. Social History: Negative. Family History: Negative. Medications: At home include metformin, metoprolol, Eliquis, Lasix, and losartan. Physical Examination: General: Very pleasant, no acute distress. Vital Signs: No palpitations reported, although she was running a heart rate of 96. HEENT: Negative. Neck: Supple with no bruit. Chest: Clear. Cardiac: Revealed atrial fibrillation. Abdomen: Benign. Extremities: Revealed no clubbing, cyanosis, or edema. Diagnostic Data: BNP was 6600. Potassium is 3.4. Impression And Plan: Recurrent atrial fibrillation, failed beta-millie. She is on amiodarone now. She is on Eliquis. We will continue that present regimen. If she does not convert, we will conside r direct current cardioversion. Meanwhile, we will continue low-dose metoprolol. In addition to the amiodarone if her heart rate gets too fast, we can give her IV digoxin as well. I would continue La six, losartan, metformin, supplement her potassium. Case was discussed with Dr. Miller. KATE/EFRAÍN Voice ID: [id number] Report ID: [id number]
--- NOTE | 2022-12-16 12:02 | PN ---
Date of Progress Note: 12/15/2022 Dr. Miller and I discussed Ms. Ayala's case. She is on amiodarone IV. She has been in and out of atrial fibrillation. She will go into sinus rhythm back in atrial fibrillation. When she goes into sinus rhythm, she is usually in the 60s to 80s as far as heart rate is concerned. She has received digoxin and she is on metoprolol. She is on Eliquis. She is asymptomatic. It is difficult to cardiovert h er if she has any night of atrial fibrillation, so we will continue her present regimen and for rate control. I will see her in the office in the next week and if she is still in atrial fibrillation, I will plan a cardioversion, then she can go home today. ISABELL Voice ID: [id number] Report ID: [id number]
== END 2022-12-15 09:22 | disposition home or self-care (01) | DRG 309 ==
LOC: ER 14:20 → ERHOLD 16:33 → 2ND 22:53
PROVIDERS: ADMIT Internal Medicine; ATTEND Internal Medicine
DX: I48.20 Chronic atrial fibrillation, unspecified (principal); I50.32 Chronic diastolic (congestive) heart failure; J96.11 Chronic respiratory failure with hypoxia; I11.0 Hypertensive heart disease with heart failure; E11.42 Type 2 diabetes mellitus with diabetic polyneuropathy; E87.6 Hypokalemia; E78.2 Mixed hyperlipidemia; R07.9 Chest pain, unspecified; K57.90 Diverticulosis of intestine, part unspecified, without perforation or abscess without bleeding; K21.9 Gastro-esophageal reflux disease without esophagitis; L71.9 Rosacea, unspecified; D64.9 Anemia, unspecified; G25.81 Restless legs syndrome; M85.80 Other specified disorders of bone density and structure, unspecified site; F32.A Depression, unspecified; Z79.01 Long term (current) use of anticoagulants; Z79.84 Long term (current) use of oral hypoglycemic drugs; Z79.899 Other long term (current) drug therapy; Z88.8 Allergy status to other drugs, medicaments and biological substances; Z87.891 Personal history of nicotine dependence; Z90.49 Acquired absence of other specified parts of digestive tract; Z90.710 Acquired absence of both cervix and uterus; Z82.49 Family history of ischemic heart disease and other diseases of the circulatory system; Z83.3 Family history of diabetes mellitus
CPT/HCPCS: 36415; 71045; 80048; 82947; 83735; 83880; 84132; 84443; 84484; 85025; 85610; 93005; 96365; 96375; 99285; J0282; J1160; J3475; J7040; J7060